=== PATIENT | female | born 1995 | race Two or more races ===

== ENCOUNTER 2021-12-05 22:03 | Emergency (ER) | payer SELFPAY ==
[2021-12-05 22:09] VITALS: BP 174/91; PULSE 83; RESP 17; TEMP 36.6; O2SAT 96; BMI 45.4
[2021-12-05 22:16] VITALS: BP 131/85; PULSE 75; RESP 18; TEMP 37.2; O2SAT 97
--- NOTE | 2021-12-06 00:07 | ED_ITS ---
HPI - Ear Problem General: Chief complaint: Ear Stated complaint: L ear pain Time Seen by Provider: 12/06/21 00:00 History of Present Illness: Patient is a 26-year-old female comes to the ED with left ear pain. Symptoms started yesterday. [place] thinks she got some water in her ear. Pain is rated 10 out of 10. Her external ears tender to the touch and the pain radiates into her left lower jaw. Denies any drainage out of left ear or any change in hearing. Denies any fevers, chills, nausea/vomiting, chest pain, shortness of breath, cough, nasal drainage or congestion, bladder or bowel symptoms. Associated symptoms: Reports ear or mastoid pain; Denies fever(s), headache(s) or neck pain Review of Systems Const: Denies: fever(s), chills or fatigue Eyes: Denies: change in vision or eye discomfort ENMT: Reports: ear or mastoid pain; Denies: throat pain, odynophagia, nasal discharge or nasal congestion Card: Denies: chest pain, palpitations, edema, swelling of feet/ankles, dyspnea on exertion or orthopnea Resp: Denies: dyspnea, productive cough or non-productive cough GI: Denies: abdominal pain, nausea, vomiting, diarrhea, constipation or hematochezia : Denies: flank pain, dysuria or hematuria Musc: Denies: neck pain, back pain or extremity swelling Skin/Breast: Denies: rash or new lesions Neuro: Denies: headache(s), numbness in extremities or weakness in extremities PFS ED PFSH: Medical History No pertinent family history Surgical History No pertinent past surgical history Physical Exam Const: COMMON NORMALS: no acute distress, patient oriented x3 and alert GENERAL APPEARANCE: cooperative HENMT: COMMON NORMALS: normocephalic HEAD & SCALP: normocephalic EXTERNAL AUDITORY CANAL: Abnormal EAC present EAC laterality: left Details: erythema, edema and EAC tenderness TYMPANIC MEMBRANE: TM abnormal TM laterality: left Details: erythematous MOUTH: Normal oral and palatal mucosa present THROAT: posterior oropharynx normal and uvula midline Neck/C-Spine: COMMON NORMALS: supple GENERAL: Yes normal visual inspection Resp: COMMON NORMALS: normal respiratory effort, No retractions, No use of accessory muscles and clear to auscultation bilaterally AUSCULTATION: clear to auscultation bilaterally Cardio: COMMON NORMALS: regular rate, regular rhythm, S1 normal heart sound present, S2 normal heart sound present, No gallops present (Cardio), No clicks present (Cardio), No murmurs present (Cardio) and Peripheral pulses 2+ throughout RATE: regular rate RHYTHM: regular rhythm HEART SOUNDS: S1 normal heart sound present and S2 normal heart sound present PERIPHERAL PULSES: Peripheral pulses 2+ throughout GI: COMMON NORMALS: Normal to inspection, nondistended, normoactive bowel sounds present, Soft to palpation, non-tender and no masses PALPATION: Yes Soft to palpation : COMMON NORMALS: Yes no CVA tenderness BLADDER/KIDNEY EXAM: Yes no CVA tenderness Back/Pelvis: COMMON NORMALS: no CVA tenderness Extremity: COMMON NORMALS: normal to inspection Neuro: COMMON NORMALS: patient oriented x3 and moves all extremities SENSORIUM/ORIENTATION: Yes alert Skin: GENERAL SKIN EXAM: dry skin Course Vital Signs: Vital signs: Vital Signs Temperature 99 F 12/05/21 22:16 Pulse Rate 75 12/05/21 22:16 Respiratory Rate 18 12/05/21 22:16 Blood Pressure 131/85 12/05/21 22:16 Pulse Oximetry 97 12/05/21 22:16 MDM - Ear Medical Decision Making Patient is a 26-year-old female comes to the ED with left ear pain. [place] developed the left ear pain yesterday. Denies any fevers, vomiting or discharge from ear. Exam of ear shows otitis externa and otitis media in left ear. She was given a dose of Ciprodex and amoxicillin here in the ED and some Toradol for pain. She was discharged home with a prescription for amoxicillin, Ciprodex and ibuprofen 600 mg for pain. Told to follow-up with her PCP in the next week for reevaluation. Return ED precautions given. Patient understood and agreed with plan. Discharge Plan Discharge Patient Disposition: Home Clinical Impression: Otitis externa Qualifiers: Otitis externa type: swimmer's ear Chronicity: acute Laterality: left Qualified Code(s): H60.332 - Swimmer's ear, left ear Otitis media Qualifiers: Otitis media type: serous Chronicity: acute Laterality: left Recurrence: non- recurrent Qualified Code(s): H65.02 - Acute serous otitis media, left ear Condition: Stable Prescriptions: New amoxicillin 500 mg capsule 500 mg PO BID 10 Days Qty: 20 0RF Ciprodex 0.3-0.1 % drops,suspension 4 drp otic (ear) BID 7 Days Qty: 7.5 0RF ibuprofen 600 mg tablet 600 mg PO Q8H PRN (Reason: pain) Qty: 20 0RF Discharge Orders: Discharge ED (Routine); Ordered 12/06/21 Ordered By: Daryl Londono Discharge Diet: Regular Discharge Activity: Resume usual activity Activity Restrictions/Additional Instructions: Follow-up with medical provider as directed in the next 7 to 10 days for reevaluation.Take medications as prescribed. Return to the ER or your medical provider if condition worsens. Please read and understand discharge instructions. Thank you for choosing [facility] for your healthcare needs today. Please realize this is an emergency room and that we are providing you with a medical screening exam and this may not be complete and all inclusive of all the testing and or work up that you may need to determine your ailment or severity of your illness. It is very important that you follow up as instructed or that you return to the Emergency Department should you have concerns or if your condition changes or worsens in any way. Coding Level of Care Code ED Cut Off Operator Scorer for Kimmie Hedrick
[2021-12-06] MEDS: amoxicillin 500 mg Capsule PO (00:25)
[2021-12-06] MEDS: ketorolac 60 mg/2 mL INJ IM (00:25)
[2021-12-06] MEDS: ciprofloxacin-dexameth Otic Susp 7.5 mL Btl 4 DROP EAR-LEFT (00:49)
[2021-12-06 00:50] VITALS: BP 166/85; PULSE 97; RESP 18; O2SAT 99
== END 2021-12-06 00:50 | disposition home or self-care (01) ==
PROVIDERS: Emergency Provider Physician Assistant
DX: H60.332 Swimmer's ear, left ear (principal); H65.02 Acute serous otitis media, left ear
CPT/HCPCS: 96372; 99283; J1885

== ENCOUNTER 2021-12-17 01:18 | Emergency (ER) | payer SELFPAY ==
[2021-12-17 01:24] VITALS: BP 143/80; PULSE 114; RESP 20; TEMP 37.3; O2SAT 97; BMI 43.8
[2021-12-17 02:58] VITALS: BP 135/78; PULSE 104; RESP 20; TEMP 37.4; O2SAT 97
[2021-12-17 03:30] VITALS: BP 135/78; PULSE 96; RESP 20; O2SAT 95
--- NOTE | 2021-12-17 03:32 | XRR_ITS ---
PROCEDURE INFORMATION: Exam: XR Chest Exam date and time: 12/17/2021 3:36 AM Age: 26 years old Clinical indication: Pain; Cough and shortness of breath; Chest pressure; Patient HX: C/O chest discomfort with cough and SOB. ; Additional info: Cp TECHNIQUE: Imaging protocol: Radiologic exam of the chest. Views: 1 view. COMPARISON: No relevant prior studies available. FINDINGS: Lungs: Unremarkable. No consolidation. Pleural spaces: Unremarkable. No pleural effusion. No pneumothorax. Heart/Mediastinum: Unremarkable. No cardiomegaly. Bones/joints: Unremarkable. XR/XR chest 1V portable [id number] IMPRESSION: No acute findings.
[2021-12-17 04:19] LABS: Basophils # 0.1 10^3/uL (0.0-0.1); Basophils % 0.7 %; Eosinophils # 0.4 10^3/uL (0.0-0.8); Hematocrit 44.1 % (37.0-47.0); Hemoglobin 14.5 g/dL (11.5-15.3); Lymphocytes # 1.3 10^3/uL (0.8-4.8); Lymphocytes % 10.8 %; Mean Corpuscular HGB Conc 32.9 g/dL (30.0-36.0); Mean Corpuscular Hemoglobin 25.2 pg (28.0-34.0); Mean Corpuscular Volume 76.7 fl (81-99); Monocytes # 0.5 10^3/uL (0.2-0.9); Monocytes % 4.4 %; Neutrophils % 80.7 %; Nucleated Red Blood Cells % 0 %; Platelet Count 320 10^3/cmm (130-400); Red Blood Count 5.75 10^6/uL (4.1-5.3); Red Cell Distribution Width 13.7 % (12.1-15.1); White Blood Count 11.8 10^3/uL (4.0-10.0)
[2021-12-17 04:27] LABS: HCG, Serum Qual Negative (Negative)
[2021-12-17] MEDS: dexamethasone 4 mg/mL INJ 8 MG IVP (04:29)
[2021-12-17] MEDS: ondansetron 2 mg/ML SDV 2 mL 8 MG IVP (04:29)
[2021-12-17] MEDS: sodium chloride 0.9% 1,000 ML 999 ML IV (04:29)
[2021-12-17] MEDS: ketorolac 30 mg/mL INJ 15 MG IVP (04:29)
[2021-12-17 04:37] LABS: Add Urine Microscopic? YES; Bilirubin Urine Neg (Negative); Blood Urine Neg (Negative); Glucose Urine UA Norm (Normal); Ketones Urine Negative (Negative); Leukocyte Esterase Urine Negative (Negative); Nitrate Urine Negative (Negative); Protein Urine Trace (Negative); Urine Appearance Clear (CLEAR); Urine Color Yellow (Yellow); Urobilinogen Urine Norm (Negative); pH Urine 6 (5-7)
[2021-12-17 04:37] LABS: Troponin T (5th) Once 6 ng/L (0-10)
[2021-12-17 04:38] LABS: Add Urine Culture? No; Bacteria Urine 1+ /hpf; Mucus Urine 3+ /hpf; RBC Urine 0-4 /hpf (0-2); WBC Urine 0-4 /hpf (0-5)
[2021-12-17 04:38] LABS: Alanine Aminotransferase 40 U/L (0-33); Albumin Level 4.4 g/dL (3.5-5.2); Alkaline Phosphatase 81 IU/L (35-105); Anion Gap 16.1 (5-19); Aspartate Amino Transferase 19 U/L (0-32); Blood Urea Nitrogen 11 mg/dL (6-20); C Reactive Protein 14.1 mg/L (0.0-4.9); Calcium 9.2 mg/dL (8.5-10.5); Carbon Dioxide 24 mmol/L (22-29); Chloride 101 mmol/L (98-107); Globulin 3.7 g/dL (1.3-4.6); Glomerular Filtration Rate 194.5 mL/min (90-130); Glucose 117 mg/dL (65-115); Osmolality Calculated 284 mOsm/kg (285-295); Potassium 4.1 mmol/L (3.5-5.1); Sodium 137 mmol/L (136-145); Total Bilirubin 0.3 mg/dL (0.15-1.2); Total Protein 8.1 g/dL (6.6-8.7)
[2021-12-17 04:45] LABS: Procalcitonin 0.06 ng/mL (0-0.5)
[2021-12-17 05:00] VITALS: BP 151/78; PULSE 83; RESP 22; O2SAT 99
--- NOTE | 2021-12-17 05:16 | ED_ITS ---
HPI - Chest Pain General: Chief Complaint: Chest Pain Stated Complaint: chest pressure, SOB Time Seen by Provider: 12/17/21 03:32 Source: patient History of Present Illness: 26-year-old female with 1 day of aches, fevers, cough, vomiting, nausea. She notes that her chest feels tight with pressure. She is having some shortness of breath MD complaint: chest pain Pertinent past history: other Onset (ago): hour(s) Prior episodes: No Onset: during rest Pain location: substernal Pain radiation: back Severity: moderate Quality: tightness and aching Relieving factors: nothing Exacerbating factors: nothing Associated symptoms: Reports diaphoresis, dyspnea, fever(s), nausea and vomiting; Deny abdominal pain or leg edema Review of Systems Const: Reports: fever(s) and diaphoresis Eyes: Reports: change in vision ENMT: Reports: throat pain Card: Reports: chest pain Resp: Reports: dyspnea and non-productive cough GI: Reports: nausea and vomiting; Denies: abdominal pain Neuro: Reports: headache(s) PFSH ED PFSH: Medical History No pertinent family history Surgical History No pertinent past surgical history Physical Exam Const: GENERAL APPEARANCE: cooperative; not in distress and not ill appearing NUTRITIONAL APPEARANCE: obese HENMT: COMMON NORMALS: normocephalic, atraumatic and Normal external nose present HEAD & SCALP: normocephalic and atraumatic FACE & SINUS: normal facial exam and face symmetric NOSE: Normal external nose present Eye: COMMON NORMALS: Equal, round and reactive pupils present and EOMs intact bilaterally PUPIL: Yes Equal, round and reactive pupils present Neck/C-Spine: GENERAL: Yes trachea midline Chest: CHEST: Yes Symmetrical chest wall rise Resp: COMMON NORMALS: normal respiratory effort, No use of accessory muscles and clear to auscultation bilaterally AUSCULTATION: clear to auscultation bilaterally Cardio: COMMON NORMALS: regular rate and regular rhythm RATE: regular rate RHYTHM: regular rhythm GI: COMMON NORMALS: Normal to inspection, nondistended, normoactive bowel sounds present, Soft to palpation and non-tender PALPATION: Yes Soft to palpation Extremity: COMMON NORMALS: no pedal edema Neuro: MEI COMA SCALE: document GCS findings Mei coma scale eye opening: Spontaneous Mei coma scale verbal response: Orientated Mei coma scale motor response: Obey commands Mei coma scale total score: 15 Course Vital Signs: Vital signs: Vital Signs Temperature 99.4 F 12/17/21 02:58 Pulse Rate 83 12/17/21 05:00 Respiratory Rate 22 H 12/17/21 05:00 Blood Pressure 151/78 12/17/21 05:00 Pulse Oximetry 99 12/17/21 05:00 MDM - Chest Pain Medical Decision Making White blood cell count 11.8. BMP is essentially normal. Only mild elevation in CRP. Her troponin level is 6. EKG shows sinus rhythm with no acute ST changes. Her chest x-ray is nonacute. She will be tested by PCR for COVID. She will be allowed discharge Lab Data : 12/17/21 04:10 12/17/21 04:10 Laboratory Results WBC 11.8 10^3/uL (4.0-10.0) H 12/17/21 04:10 RBC 5.75 10^6/uL (4.1-5.3) H 12/17/21 04:10 Hgb 14.5 g/dL (11.5-15.3) 12/17/21 04:10 Hct 44.1 % (37.0-47.0) 12/17/21 04:10 MCV 76.7 fl (81-99) L 12/17/21 04:10 MCH 25.2 pg (28.0-34.0) L 12/17/21 04:10 MCHC 32.9 g/dL (30.0-36.0) 12/17/21 04:10 RDW 13.7 % (12.1-15.1) 12/17/21 04:10 Plt Count 320 10^3/cmm (130-400) 12/17/21 04:10 MPV 10.0 fL (7.4-10.4) 12/17/21 04:10 Neut % (Auto) 80.7 % 12/17/21 04:10 Lymph % (Auto) 10.8 % 12/17/21 04:10 [place] % (Auto) 4.4 % 12/17/21 04:10 Eos % (Auto) 3.0 % 12/17/21 04:10 Baso % (Auto) 0.7 % 12/17/21 04:10 Neut # (Auto) 9.50 10^3/uL (1.8-7.7) H 12/17/21 04:10 Lymph # (Auto) 1.3 10^3/uL (0.8-4.8) 12/17/21 04:10 [place] # (Auto) 0.5 10^3/uL (0.2-0.9) 12/17/21 04:10 Eos # (Auto) 0.4 10^3/uL (0.0-0.8) 12/17/21 04:10 Baso # (Auto) 0.1 10^3/uL (0.0-0.1) 12/17/21 04:10 Nucleated RBC % (auto) 0 % 12/17/21 04:10 Nucleated RBCs # 0.0 /100WBC 12/17/21 04:10 Sodium 137 mmol/L (136-145) 12/17/21 04:10 Potassium 4.1 mmol/L (3.5-5.1) 12/17/21 04:10 Chloride 101 mmol/L (98-107) 12/17/21 04:10 Carbon Dioxide 24 mmol/L (22-29) 12/17/21 04:10 Anion Gap 16.1 (5-19) 12/17/21 04:10 BUN 11 mg/dL (6-20) 12/17/21 04:10 Creatinine 0.4 mg/dL (0.5-0.9) L 12/17/21 04:10 GFR Calculation 194.5 mL/min (90-130) H 12/17/21 04:10 Glucose 117 mg/dL (65-115) H 12/17/21 04:10 Calculated Osmolality 284 mOsm/kg (285-295) L 12/17/21 04:10 Calcium 9.2 mg/dL (8.5-10.5) 12/17/21 04:10 Total Bilirubin 0.3 mg/dL (0.15-1.2) 12/17/21 04:10 AST 19 U/L (0-32) 12/17/21 04:10 ALT 40 U/L (0-33) H 12/17/21 04:10 Alkaline Phosphatase 81 IU/L (35-105) 12/17/21 04:10 Troponin T Gen 5 ng/L 6 ng/L (0-10) 12/17/21 04:10 C-Reactive Protein 14.1 mg/L (0.0-4.9) H 12/17/21 04:10 Total Protein 8.1 g/dL (6.6-8.7) 12/17/21 04:10 Albumin 4.4 g/dL (3.5-5.2) 12/17/21 04:10 Globulin 3.7 g/dL (1.3-4.6) 12/17/21 04:10 Procalcitonin 0.06 ng/mL (0-0.5) 12/17/21 04:10 HCG, Qual Negative (Negative) 12/17/21 04:10 Urine Color Yellow (Yellow) 12/17/21 04:25 Urine Appearance Clear (CLEAR) 12/17/21 04:25 Urine pH 6 (5-7) 12/17/21 04:25 Ur Specific [place] 1.020 (1.005-1.030) 12/17/21 04:25 Urine Protein Trace (Negative) 12/17/21 04:25 Urine Glucose (UA) Norm (Normal) 12/17/21 04:25 Urine Ketones Negative (Negative) 12/17/21 04:25 Urine Blood Neg (Negative) 12/17/21 04:25 Urine Nitrate Negative (Negative) 12/17/21 04:25 Urine Bilirubin Neg (Negative) 12/17/21 04:25 Urine Urobilinogen Norm mg/dL (Negative) 12/17/21 04:25 Ur Leukocyte Esterase Negative (Negative) 12/17/21 04:25 Urine RBC 0-4 /hpf (0-2) H 12/17/21 04:25 Urine WBC 0-4 /hpf (0-5) H 12/17/21 04:25 Ur Squamous Epith Cells 5-10 /hpf (0-5) H 12/17/21 04:25 Amorphous Sediment Not Reportable 12/17/21 04:25 Urine Bacteria 1+ /hpf (NONE) H 12/17/21 04:25 Urine Mucus 3+ /hpf 12/17/21 04:25 Discharge Plan Discharge Patient Disposition: Home Clinical Impression: Chest pain, Bronchitis Condition: Stable Prescriptions: New albuterol sulfate 90 mcg/actuation HFA aerosol inhaler 2 inh inhalation Q4H PRN (Reason: shortness of breath or wheezing) Qty: 6.7 1RF ketorolac 10 mg tablet 10 mg PO TID PRN (Reason: pain) Qty: 10 0RF No Action ibuprofen 800 mg tablet 800 mg PO Q8H PRN (Reason: pain) Qty: 20 0RF Discharge Orders: Discharge ED (Routine); Ordered 12/17/21 Ordered By: Billy Iglesias Discharge Diet: Advance as tolerated Discharge Activity: Limit activity as instructed Patient Instructions: Chest Pain (ED), Acute Bronchitis (ED) Activity Restrictions/Additional Instructions: Return for worsening chest discomfort despite treatment, worsening shortness of breath, vomiting liquids or medications, other concerning symptoms. You may call later today to get the results of your COVID PCR test. If it is positive, you may benefit from antiviral medication treatment Coding Level of Care Code ED Senior Safety Support Manager for Kimmie Fwd Exam Comprehensive
[2021-12-17 05:48] VITALS: BP 139/75; PULSE 97; RESP 16; O2SAT 98
== END 2021-12-17 05:49 | disposition home or self-care (01) ==
PROVIDERS: Emergency Provider Emergency Medicine
DX: R07.9 Chest pain, unspecified (principal); J40 Bronchitis, not specified as acute or chronic
CPT/HCPCS: 71045; 80053; 81001; 84145; 84484; 84703; 85025; 86140; 96361; 96374; 96375; 99284; J1100; J1885; J2405; J7030

== ENCOUNTER 2021-12-27 02:04 | Emergency (ER) | payer SELFPAY ==
[2021-12-27 02:09] VITALS: BP 154/69; PULSE 102; RESP 18; TEMP 36.5; O2SAT 95; BMI 43.8
--- NOTE | 2021-12-27 02:16 | XRR_ITS ---
PROCEDURE INFORMATION: Exam: XR Left Knee Exam date and time: 12/27/2021 2:34 AM Age: 26 years old Clinical indication: Injury or trauma; Fall; Laceration; Patella or knee; Left; Foreign body involvement not specified; Additional info: Left knee pain after fall TECHNIQUE: Imaging protocol: Radiologic exam of the Left knee. Views: 3 views. COMPARISON: No relevant prior studies available. FINDINGS: Bones/joints: The medial joint space is well maintained. The lateral joint space is well maintained. No fracture identified. Flabella noted. Soft tissues: No knee joint effusion is present. XR/XR knee LT 3V* [id number] IMPRESSION: No evidence of acute fracture or dislocation.
--- NOTE | 2021-12-27 02:28 | W.ED.EXTPRO ---
HPI - Extremity Problem General: Chief complaint: Extremity Injury, Lower Stated complaint: L leg injury Time Seen by Provider: 12/27/21 02:07 History of Present Illness: Patient is a 26-year-old female comes to the ED with left knee pain. Patient had a fall 2 days ago where she tripped and her left knee hit the gravel causing a laceration. She was seen in urgent care and sutures were placed to close laceration. She says they did not do any x-ray of left knee at urgent care. She reports having 10 out of 10 left knee pain since fall. Pain worsens with weightbearing. She endorses having some swelling of the left knee as well. Associated symptoms: Deny chest pain, fever(s) or rash Review of Systems Const: Denies: fever(s), chills or fatigue Eyes: Denies: change in vision or eye discomfort ENMT: Denies: throat pain, odynophagia, nasal discharge or nasal congestion Card: Denies: chest pain, palpitations, edema, swelling of feet/ankles, dyspnea on exertion or orthopnea Resp: Denies: dyspnea, productive cough or non-productive cough GI: Denies: abdominal pain, nausea, vomiting, diarrhea, constipation or hematochezia : Denies: flank pain, dysuria or hematuria Musc: Reports: extremity pain (left knee pain) and extremity swelling (left knee); Denies: neck pain or back pain Skin/Breast: Denies: rash or new lesions Neuro: Denies: headache(s), numbness in extremities or weakness in extremities [facility] ED PFSH: Medical History Laceration of left knee without complication No pertinent family history Surgical History No pertinent past surgical history Social History Smoking and tobacco status: current every day smoker Female Reproductive History: Date of last menstrual period: 12/02/21 Physical Exam Const: COMMON NORMALS: no acute distress, patient oriented x3 and alert GENERAL APPEARANCE: cooperative and comfortable HENMT: COMMON NORMALS: normocephalic HEAD & SCALP: normocephalic MOUTH: Normal oral and palatal mucosa present THROAT: posterior oropharynx normal and uvula midline Neck/C-Spine: COMMON NORMALS: supple GENERAL: Yes normal visual inspection Resp: COMMON NORMALS: normal respiratory effort, No retractions, No use of accessory muscles and clear to auscultation bilaterally AUSCULTATION: clear to auscultation bilaterally Cardio: COMMON NORMALS: regular rate, regular rhythm, S1 normal heart sound present, S2 normal heart sound present, No gallops present (Cardio), No clicks present (Cardio), No murmurs present (Cardio) and Peripheral pulses 2+ throughout RATE: regular rate RHYTHM: regular rhythm HEART SOUNDS: S1 normal heart sound present and S2 normal heart sound present PERIPHERAL PULSES: Peripheral pulses 2+ throughout GI: COMMON NORMALS: Normal to inspection, nondistended, normoactive bowel sounds present, Soft to palpation, non-tender and no masses PALPATION: Yes Soft to palpation : COMMON NORMALS: Yes no CVA tenderness BLADDER/KIDNEY EXAM: Yes no CVA tenderness Back/Pelvis: COMMON NORMALS: no CVA tenderness Extremity: NARRATIVE EXTREMITY EXAM: Left knee?laceration with sutures in place. No signs of any cellulitis around laceration site. Patient has some swelling of left knee with generalized tenderness throughout left knee. Full range of motion. Neurovascular intact distally. GENERAL: Yes normal exam except as noted Neuro: COMMON NORMALS: patient oriented x3 and moves all extremities SENSORIUM/ORIENTATION: Yes alert Skin: GENERAL SKIN EXAM: dry skin Course Vital Signs: Vital signs: Vital Signs Temperature 97.7 F 12/27/21 02:09 Pulse Rate 102 H 12/27/21 02:09 Respiratory Rate 18 12/27/21 02:09 Blood Pressure 154/69 12/27/21 02:09 Pulse Oximetry 95 12/27/21 02:09 MDM - Extremity (Nontraumatic) Medical Decision Making Patient is a 26-year-old female comes to the ED with left knee pain. Patient appears nontoxic in no acute distress or pain. Left knee?laceration with sutures in place. No signs of any cellulitis around laceration site. Patient has some swelling of left knee with generalized tenderness throughout left knee. Full range of motion. Neurovascular intact distally. X-ray of left knee showed no acute findings. Patient was diagnosed with contusion left knee and discharged home with crutches. She was sent home with a prescription for ibuprofen 800 mg. Told to follow-up with PCP in the next week for reevaluation. Return to ED precautions given. Patient understood and agreed with plan. Discharge Plan Discharge Patient Disposition: Home Clinical Impression: Contusion of knee, left Qualifiers: Encounter type: initial encounter Qualified Code(s): S80.02XA - Contusion of left knee, initial encounter Condition: Stable Prescriptions: New ibuprofen 800 mg tablet 800 mg PO Q8H PRN (Reason: pain) Qty: 30 0RF No Action sulfamethoxazole-trimethoprim [Bactrim DS] 800-160 mg tablet 1 tab PO BID Qty: 14 0RF celecoxib 200 mg capsule 200 mg PO BID PRN (Reason: pain) Qty: 14 0RF albuterol sulfate 90 mcg/actuation HFA aerosol inhaler 2 inh inhalation Q4H PRN (Reason: shortness of breath or wheezing) Qty: 6.7 1RF Discharge Orders: Discharge ED (Routine); Ordered 12/27/21 Ordered By: Daryl Londono Discharge Diet: Regular Discharge Activity: Limit activity as instructed and Use walker/crutches as instructed Patient Instructions: Knee Pain (ED) Activity Restrictions/Additional Instructions: Follow-up with medical provider as directed. Use crutches for the next 2 to 3 days and limit weightbearing to allow for healing. Rest, ice and elevate left knee. Take medications as prescribed. Return to the ER or your medical provider if condition worsens. Please read and understand discharge instructions. Thank you for choosing [facility] for your healthcare needs today. Please realize this is an emergency room and that we are providing you with a medical screening exam and this may not be complete and all inclusive of all the testing and or work up that you may need to determine your ailment or severity of your illness. It is very important that you follow up as instructed or that you return to the Emergency Department should you have concerns or if your condition changes or worsens in any way. Coding Level of Care Code ED Farmworker Poultry for Kimmie Hedrick Exam Comprehensive
[2021-12-27] MEDS: HYDROcodone-acetaminophen 7.5-325 mg Tablet 1 TAB PO ×2 (02:39→03:15)
== END 2021-12-27 03:17 | disposition home or self-care (01) ==
PROVIDERS: Emergency Provider Physician Assistant
DX: S80.02XA Contusion of left knee, initial encounter (principal); F17.210 Nicotine dependence, cigarettes, uncomplicated; W01.198A Fall on same level from slipping, tripping and stumbling with subsequent striking against other object, initial encounter
CPT/HCPCS: 73562; 99283; E0114

== ENCOUNTER 2022-01-14 23:08 | Emergency (ER) | payer SELFPAY ==
[2022-01-14 23:12] VITALS: BP 159/83; PULSE 104; RESP 18; TEMP 36.8; O2SAT 98; BMI 45.1
[2022-01-14 23:38] LABS: Add Urine Microscopic? NO; Charge for UA Resulting for Rev
[2022-01-14 23:40] LABS: Bilirubin Urine Neg (Negative); Blood Urine Neg (Negative); Glucose Urine UA Norm (Normal); Ketones Urine Negative (Negative); Leukocyte Esterase Urine Negative (Negative); Nitrate Urine Negative (Negative); Protein Urine Neg (Negative); Urine Appearance Clear (CLEAR); Urine Color Yellow (Yellow); Urobilinogen Urine Neg (Negative); pH Urine 6 (5-7)
[2022-01-15 00:14] LABS: HCG Qualitative Urine. Negative (Negative)
[2022-01-15 00:16] VITALS: BP 146/65; RESP 16; O2SAT 96
--- NOTE | 2022-01-15 00:16 | W.ED.ABDPA2 ---
HPI - Abdominal Pain General: Chief Complaint: Abdominal Pain Stated Complaint: pelvic pain, abdomen pain Time Seen by Provider: 01/14/22 23:38 Source: patient Mode of arrival: ambulatory Limitations: no limitations History of Present Illness: 26-year-old female states that she gets frequent urinary tract infections. She states that she wipes and cleans her self very thoroughly after urinating and sometimes irritates her vagina. She states that over the last 2 days she has had some irritation along with difficulty urinating pain with urination states she is also had a foul-smelling discharge over the last 2 days as well. Said some mild pelvic pain she rates a 1 out of 10 denies any fever denies any vomiting or diarrhea denies any worsening improving factors. Associated Symptoms: Reports dysuria; Denies chills, diarrhea, fever(s), nausea and vomiting Related Data: Date of Last Menstrual Period: 12/02/21 Review of Systems Const: Denies: fever(s), chills, body aches or change in appetite Eyes: Denies: blurry vision or eye discomfort ENMT: Denies: throat pain or dental pain Card: Denies: chest pain Resp: Denies: dyspnea GI: Denies: abdominal pain, nausea, vomiting or diarrhea : Reports: dysuria and vaginal discharge Musc: Denies: neck pain or back pain Skin/Breast: Denies: rash Neuro: Denies: headache(s) Psych: Denies: depression [place]/Lymph: Denies: easy bruising All/Imm: Denies: urticaria PFSH ED PFSH: Medical History Laceration of left knee without complication No pertinent family history Surgical History No pertinent past surgical history Social History Smoking and tobacco status: current every day smoker Female Reproductive History: Date of last menstrual period: 12/02/21 Physical Exam Const: COMMON NORMALS: no acute distress, patient oriented x3 and healthy appearing HENMT: COMMON NORMALS: normocephalic and atraumatic HEAD & SCALP: normocephalic and atraumatic Eye: COMMON NORMALS: Equal, round and reactive pupils present and EOMs intact bilaterally PUPIL: Yes Equal, round and reactive pupils present Neck/C-Spine: COMMON NORMALS: full ROM and supple Chest: COMMONS NORMALS: normal inspection of the chest and normal palpation of entire chest wall Resp: COMMON NORMALS: normal respiratory effort, No retractions, No use of accessory muscles and clear to auscultation bilaterally AUSCULTATION: clear to auscultation bilaterally Cardio: COMMON NORMALS: regular rate, regular rhythm and No murmurs present (Cardio) RATE: regular rate RHYTHM: regular rhythm GI: COMMON NORMALS: Normal to inspection, nondistended, normoactive bowel sounds present, Soft to palpation, non-tender and no masses PALPATION: Yes Soft to palpation : OTHER: Cloudy discharge noted on pelvic exam no cervical motion tenderness Extremity: COMMON NORMALS: normal to inspection and full ROM Neuro: COMMON NORMALS: patient oriented x3, moves all extremities and no focal motor deficits Psych: COMMON NORMALS: mental status grossly normal, Normal thought process present and cooperative THOUGHT PROCESS: Normal thought process present Skin: COMMON NORMALS: no rashes or lesions noted and no wounds GENERAL SKIN EXAM: no rashes or lesions noted Course Vital Signs: Vital signs: Vital Signs Temperature 98.2 F 01/14/22 23:12 Pulse Rate 104 H 01/14/22 23:12 Respiratory Rate 16 01/15/22 00:16 Blood Pressure 146/65 01/15/22 00:16 Pulse Oximetry 96 01/15/22 00:16 MDM - Abdominal Pain Medical Decision Making Patient presents here with abdominal pain she does have some vaginal discharge. Her wet prep did show some bacteria she has no signs of PID but will give her Rocephin along with doxycycline follow cultures her abdominal exam is benign she has no signs of appendicitis. Lab Data : 01/15/22 00:15 01/15/22 01:34 Labs/Radiology: Laboratory Results WBC 10.8 10^3/uL (4.0-10.0) H 01/15/22 00:15 RBC 5.66 10^6/uL (4.1-5.3) H 01/15/22 00:15 Hgb 15.6 g/dL (11.5-15.3) H 01/15/22 00:15 Hct 45.5 % (37.0-47.0) 01/15/22 00:15 MCV 80.4 fl (81-99) L 01/15/22 00:15 MCH 27.6 pg (28.0-34.0) L 01/15/22 00:15 MCHC 34.3 g/dL (30.0-36.0) 01/15/22 00:15 RDW 13.6 % (12.1-15.1) 01/15/22 00:15 Plt Count 359 10^3/cmm (130-400) 01/15/22 00:15 MPV 10.3 fL (7.4-10.4) 01/15/22 00:15 Neut % (Auto) 69.3 % 01/15/22 00:15 Lymph % (Auto) 20.4 % 01/15/22 00:15 [place] % (Auto) 5.1 % 01/15/22 00:15 Eos % (Auto) 4.1 % 01/15/22 00:15 Baso % (Auto) 0.6 % 01/15/22 00:15 Neut # (Auto) 7.52 10^3/uL (1.8-7.7) 01/15/22 00:15 Lymph # (Auto) 2.2 10^3/uL (0.8-4.8) 01/15/22 00:15 [place]ard # (Auto) 0.6 10^3/uL (0.2-0.9) 01/15/22 00:15 Eos # (Auto) 0.4 10^3/uL (0.0-0.8) 01/15/22 00:15 Baso # (Auto) 0.1 10^3/uL (0.0-0.1) 01/15/22 00:15 Nucleated RBC % (auto) 0 % 01/15/22 00:15 Nucleated RBCs # 0.0 /100WBC 01/15/22 00:15 Sodium Cancelled 01/15/22 01:34 Potassium Cancelled 01/15/22 01:34 Chloride Cancelled 01/15/22 01:34 Carbon Dioxide Cancelled 01/15/22 01:34 Anion Gap Cancelled 01/15/22 01:34 BUN Cancelled 01/15/22 01:34 Creatinine Cancelled 01/15/22 01:34 GFR Calculation Cancelled 01/15/22 01:34 Glucose Cancelled 01/15/22 01:34 Calculated Osmolality Cancelled 01/15/22 01:34 Calcium Cancelled 01/15/22 01:34 Total Bilirubin Cancelled 01/15/22 01:34 AST Cancelled 01/15/22 01:34 ALT Cancelled 01/15/22 01:34 Alkaline Phosphatase Cancelled 01/15/22 01:34 Total Protein Cancelled 01/15/22 01:34 Albumin Cancelled 01/15/22 01:34 Globulin Cancelled 01/15/22 01:34 Lipase Cancelled 01/15/22 01:34 HCG, Qual Cancelled 01/15/22 00:15 Urine Color Yellow (Yellow) 01/14/22 23:25 Urine Appearance Clear (CLEAR) 01/14/22 23:25 Urine pH 6 (5-7) 01/14/22 23:25 Ur Specific [place] 1.020 (1.005-1.030) 01/14/22 23:25 Urine Protein Neg (Negative) 01/14/22 23:25 Urine Glucose (UA) Norm (Normal) 01/14/22 23:25 Urine Ketones Negative (Negative) 01/14/22 23:25 Urine Blood Neg (Negative) 01/14/22 23:25 Urine Nitrate Negative (Negative) 01/14/22 23:25 Urine Bilirubin Neg (Negative) 01/14/22 23:25 Urine Urobilinogen Neg mg/dL (Negative) 01/14/22 23:25 Ur Leukocyte Esterase Negative (Negative) 01/14/22 23:25 Discharge Plan Discharge Patient Disposition: Home Clinical Impression: Vaginal discharge Condition: Stable Prescriptions: New doxycycline hyclate 100 mg tablet 100 mg PO BID 10 Days Qty: 20 0RF No Action celecoxib 200 mg capsule 200 mg PO BID PRN (Reason: pain) Qty: 14 0RF albuterol sulfate 90 mcg/actuation HFA aerosol inhaler 2 inh inhalation Q4H PRN (Reason: shortness of breath or wheezing) Qty: 6.7 1RF ibuprofen 800 mg tablet 800 mg PO Q8H PRN (Reason: pain) Qty: 30 0RF Discharge Orders: Discharge ED (Routine); Ordered 01/15/22 Ordered By: Brian Rocha Discharge Diet: Advance as tolerated Discharge Activity: Resume usual activity Coding Level of Care Code ED 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
[2022-01-15 00:21] LABS: Basophils # 0.1 10^3/uL (0.0-0.1); Basophils % 0.6 %; Eosinophils # 0.4 10^3/uL (0.0-0.8); Eosinophils % 4.1 %; Hematocrit 45.5 % (37.0-47.0); Hemoglobin 15.6 g/dL (11.5-15.3); Lymphocytes # 2.2 10^3/uL (0.8-4.8); Lymphocytes % 20.4 %; Mean Corpuscular HGB Conc 34.3 g/dL (30.0-36.0); Mean Corpuscular Hemoglobin 27.6 pg (28.0-34.0); Mean Corpuscular Volume 80.4 fl (81-99); Mean Platelet Volume 10.3 fL (7.4-10.4); Monocytes # 0.6 10^3/uL (0.2-0.9); Monocytes % 5.1 %; Neutrophils # 7.52 10^3/uL (1.8-7.7); Neutrophils % 69.3 %; Nucleated Red Blood Cells % 0 %; Platelet Count 359 10^3/cmm (130-400); Red Blood Count 5.66 10^6/uL (4.1-5.3); Red Cell Distribution Width 13.6 % (12.1-15.1); White Blood Count 10.8 10^3/uL (4.0-10.0)
[2022-01-15 02:23] VITALS: BP 169/93; PULSE 103; RESP 18
== END 2022-01-15 02:28 | disposition home or self-care (01) ==
PROVIDERS: Emergency Provider Emergency Medicine
DX: N89.8 Other specified noninflammatory disorders of vagina (principal); F17.210 Nicotine dependence, cigarettes, uncomplicated
CPT/HCPCS: 81003; 81025; 85025; 87210; 87491; 87591; 96372; 99284; J0696

== ENCOUNTER 2022-02-23 22:48 | Emergency (ER) | payer SELFPAY ==
[2022-02-23 22:52] VITALS: BP 170/97; PULSE 103; RESP 16; TEMP 36.8; O2SAT 94
--- NOTE | 2022-02-23 23:18 | ED_ITS ---
Documented by User: HEAVENLY Avila 02/24/22 00:00 HPI - Nausea/Vomiting/Diarrhea General: Chief complaint: Nausea/Vomiting/Diarrhea Stated complaint: N/V/D Time Seen by Provider: 02/23/22 22:55 History of Present Illness: 27-year-old female in to the ER today with complaints of nausea, vomiting, diarrhea, sore throat. She reports that yesterday she started having diarrhea. She reports 10-15 stools liquid watery yesterday 10-15 liquid watery stools today. She reports that this evening she did vomit x1, but she reports it was a significant amount. She reports feeling nauseated all day and not drinking much water. She reports feeling urinary frequency and some burning with urination. She denies any hematuria. She denies any blood in her stools. She reports some upper abdominal/epigastric pain. She denies any fever, chills, body aches. She has had headaches off and on x2 days. She does report a recent sick contact yesterday. She reports being in contact with somebody who had a GI bug. She is very worried about her throat pain. She denies stating that her last period was on 01 February. She denies use of control. Associated nausea: Yes Associated symtoms: Reports dysuria, headache(s) and nausea; Denies change in vision, chest pain or palpitations Review of Systems Const: Denies: fever(s), chills or body aches Eyes: Denies: change in vision or blurry vision ENMT: Reports: throat pain, odynophagia, nasal congestion and post nasal drip; Denies: sinus pain Card: Denies: chest pain, palpitations, irregular heart rhythm, dyspnea on exertion or orthopnea Resp: Denies: dyspnea, productive cough or non-productive cough GI: Reports: abdominal pain, nausea, vomiting and diarrhea (10-15 liquid watery stools per day x2 days); Denies: hematemesis : Reports: dysuria, urinary frequency and urinary hesitancy; Denies: flank pain, difficulty voiding or hematuria Neuro: Reports: headache(s); Denies: numbness in extremities, weakness in extremities, sensory changes or lack of coordination PFSH ED PFSH: Medical History Laceration of left knee without complication No pertinent family history Surgical History No pertinent past surgical history Social History Smoking and tobacco status: current every day smoker Female Reproductive History: Date of last menstrual period: 12/02/21 Physical Exam Const: COMMON NORMALS: no acute distress, patient oriented x3 and alert NUTRITIONAL APPEARANCE: obese morbidly obese HENMT: COMMON NORMALS: external ears normal, EAC's normal and TM's normal bilaterally FACE & SINUS: sinuses nontender NOSE: Nasal discharge present clear EXTERNAL EAR: Yes external ears normal EXTERNAL AUDITORY CANAL: EAC's normal TYMPANIC MEMBRANE: TM's normal bilaterally THROAT: posterior oropharynx abnormal erythema (Mild erythema with moderate postnasal drainage) Eye: COMMON NORMALS: Equal, round and reactive pupils present PUPIL: Yes Equal, round and reactive pupils present Resp: COMMON NORMALS: normal respiratory effort and clear to auscultation bilaterally AUSCULTATION: clear to auscultation bilaterally Cardio: COMMON NORMALS: regular rate, regular rhythm, S1 normal heart sound present and S2 normal heart sound present RATE: regular rate RHYTHM: regular rhythm HEART SOUNDS: S1 normal heart sound present and S2 normal heart sound present GI: COMMON NORMALS: Normal to inspection, nondistended, normoactive bowel sounds present, Soft to palpation and non-tender (Mild epigastric tenderness to palpation) PALPATION: Yes Soft to palpation : COMMON NORMALS: Yes no CVA tenderness BLADDER/KIDNEY EXAM: Yes no CVA tenderness Back/Pelvis: COMMON NORMALS: no CVA tenderness Neuro: COMMON NORMALS: patient oriented x3 SENSORIUM/ORIENTATION: Yes alert Course Reevaluation(s): Reevaluation #1: 2315-patient reports she is feeling improved after receiving Zofran. Blood pressure rechecked 173/98. Patient reports that that is completely normal for her when she is hurting. She reports her throat is hurting. She denies chest pain or shortness of breath. Reevaluation #2: 2355-patient reports that she is feeling significantly better. She reports that she does not have any pain. Still awaiting lab results. IV fluids continuing to run. No diarrhea stools since arriving to ER today. No more vomiting since arriving to ER. Patient signed out to Dr. Rocha Vital Signs: Vital signs: Vital Signs Temperature 98.2 F 02/23/22 22:52 Pulse Rate 96 02/24/22 00:02 Respiratory Rate 18 02/24/22 00:02 Blood Pressure 110/81 02/24/22 00:02 Pulse Oximetry 100 02/24/22 00:02 Oxygen Delivery Me thod 02/24/22 00:02 MDM - Nausea/Vomiting/Diarrhea Medical Decision Making 27-year-old female patient in today for complaints of nausea, vomiting, diarrhea, sore throat. Patient does have a history of hypertension but states her blood pressure is normally 145 systolic at home. elevated in here today. She reports persisting liquid diarrhea x2 days. She reports 10-15 stools per day. She vomited this evening. She has had little p.o. intake today. She is very concerned about dehydration. She denies any blood in her stools. She has noticed some urinary frequency and dysuria today. She denies any hematuria. She denies any fever, chills. She complains of a severe sore throat. She does report some postnasal drainage. IV started, basic labs drawn. Patient reque sting strep swab to be done although her throat is not impressive on physical exam. Zofran administered. UA dip to evaluate for urinary symptoms. hCG ordered. IV fluid bolus ordered x1 given patient's reported significant diarrhea. Lab Data : 02/23/22 23:20 02/23/22 23:20 Laboratory Results WBC 11.7 10^3/uL (4.0-10.0) H 02/23/22 23:20 RBC 5.56 10^6/uL (4.1-5.3) H 02/23/22 23:20 Hgb 14.3 g/dL (11.5-15.3) 02/23/22 23:20 Hct 45.1 % (37.0-47.0) 02/23/22 23:20 MCV 81.1 fl (81-99) 02/23/22 23:20 MCH 25.7 pg (28.0-34.0) L 02/23/22 23:20 MCHC 31.7 g/dL (30.0-36.0) 02/23/22 23:20 RDW 13.6 % (12.1-15.1) 02/23/22 23:20 Plt Count 305 10^3/cmm (130-400) 02/23/22 23:20 MPV 9.9 fL (7.4-10.4) 02/23/22 23:20 Neut % (Auto) 71.2 % 02/23/22 23:20 Lymph % (Auto) 18.1 % 02/23/22 23:20 Lake % (Auto) 6.2 % 02/23/22 23:20 Eos % (Auto) 3.3 % 02/23/22 23:20 Baso % (Auto) 0.4 % 02/23/22 23:20 Neut # (Auto) 8.31 10^3/uL (1.8-7.7) H 02/23/22 23:20 Lymph # (Auto) 2.1 10^3/uL (0.8-4.8) 02/23/22 23:20 Lake # (Auto) 0.7 10^3/uL (0.2-0.9) 02/23/22 23:20 Eos # (Auto) 0.4 10^3/uL (0.0-0.8) 02/23/22 23:20 Baso # (Auto) 0.1 10^3/uL (0.0-0.1) 02/23/22 23:20 Nucleated RBC % (auto) 0 % 02/23/22 23:20 Nucleated RBCs # 0.0 /100WBC 02/23/22 23:20 Sodium 138 mmol/L (136-145) 02/23/22 23:20 Potassium 4.1 mmol/L (3.5-5.1) 02/23/22 23:20 Chloride 102 mmol/L (98-107) 02/23/22 23:20 Carbon Dioxide 25 mmol/L (22-29) 02/23/22 23:20 Anion Gap 15.1 (5-19) 02/23/22 23:20 BUN 9 mg/dL (6-20) 02/23/22 23:20 Creatinine 0.5 mg/dL (0.5-0.9) 02/23/22 23:20 GFR Calculation 149.1 mL/min (90-130) H 02/23/22 23:20 Glucose 165 mg/dL (65-115) H 02/23/22 23:20 Calculated Osmolality 288 mOsm/kg (285-295) 02/23/22 23:20 Calcium 9.1 mg/dL (8.5-10.5) 02/23/22 23:20 Total Bilirubin 0.2 mg/dL (0.15-1.2) 02/23/22 23:20 AST 19 U/L (0-32) 02/23/22 23:20 ALT 32 U/L (0-33) 02/23/22 23:20 Alkaline Phosphatase 78 U/L (35-105) 02/23/22 23:20 Total Protein 7.6 g/dL (6.6-8.7) 02/23/22 23:20 Albumin 4.0 g/dL (3.5-5.2) 02/23/22 23:20 Globulin 3.6 g/dL (1.3-4.6) 02/23/22 23:20 Lipase 32 U/L (13-60) 02/23/22 23:20 Urine Color Yellow (Yellow) 02/23/22 23:45 Urine Appearance Clear (CLEAR) 02/23/22 23:45 Urine pH 6.5 (5-7) 02/23/22 23:45 Ur Specific [place] 1.020 (1.005-1.030) 02/23/22 23:45 Urine Protein 1+ (Negative) H 02/23/22 23:45 Urine Glucose (UA) Norm (Normal) 02/23/22 23:45 Urine Ketones Negative (Negative) 02/23/22 23:45 Urine Blood Neg (Negative) 02/23/22 23:45 Urine Nitrate Negative (Negative) 02/23/22 23:45 Urine Bilirubin Neg (Negative) 02/23/22 23:45 Urine Urobilinogen Norm mg/dL (Negative) 02/23/22 23:45 Ur Leukocyte Esterase Negative (Negative) 02/23/22 23:45 Urine RBC 0-4 /hpf (0-2) H 02/23/22 23:45 Urine WBC None /hpf (0-5) 02/23/22 23:45 Ur Squamous Epith Cells 0-4 /hpf (0-5) H 02/23/22 23:45 Calcium Oxalate Crystal 5-10 /hpf H 02/23/22 23:45 Amorphous Sediment 1+ /hpf 02/23/22 23:45 Urine Bacteria None /hpf (NONE) 02/23/22 23:45 Urine HCG, Qual Negative (Negative) 02/23/22 23:46 Group A Strep Rapid Negative (Negative) 02/23/22 23:29 Discharge Plan Discharge Patient Disposition: Home Clinical Impression: Sore throat, Vomiting Condition: Stable Prescriptions: New ondansetron 4 mg tablet,disintegrating 4 mg PO Q6H PRN (Reason: nausea and vomiting) Qty: 14 0RF No Action celecoxib 200 mg capsule 200 mg PO BID PRN (Reason: pain) Qty: 14 0RF albuterol sulfate 90 mcg/actuation HFA aerosol inhaler 2 inh inhalation Q4H PRN (Reason: shortness of breath or wheezing) Qty: 6.7 1RF ibuprofen 800 mg tablet 800 mg PO Q8H PRN (Reason: pain) Qty: 30 0RF Discharge Orders: Discharge ED (Routine); Ordered 02/24/22 Ordered By: Brian Rocha Discharge Diet: Advance as tolerated Discharge Activity: Resume usual activity Patient Instructions: Strep Throat (ED), Acute Nausea and Vomiting (ED) Coding Level of Care Code 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 Documented by User: Brian Rocha MD 02/24/22 00:42 HPI - Nausea/Vomiting/Diarrhea General: Chief complaint: Nausea/Vomiting/Diarrhea Stated complaint: N/V/D Time Seen by Provider: 02/23/22 22:55 PFSH ED PFSH: Medical History Laceration of left knee without complication No pertinent family history Surgical History No pertinent past surgical history Social History Smoking and tobacco status: current every day smoker Course Vital Signs: Vital signs: Vital Signs Temperature 98.2 F 02/23/22 22:52 Pulse Rate 96 02/24/22 00:02 Respiratory Rate 18 02/24/22 00:02 Blood Pressure 110/81 02/24/22 00:02 Pulse Oximetry 100 02/24/22 00:02 Oxygen Delivery Me thod 02/24/22 00:02 MDM - Nausea/Vomiting/Diarrhea Medical Decision Making 27-year-old female patient in today for complaints of nausea, vomiting, diarrhea, sore throat. Patient does have a history of hypertension but states her blood pressure is normally 145 systolic at home. elevated in here today. She reports persisting liquid diarrhea x2 days. She reports 10-15 stools per day. She vomited this evening. She has had little p.o. intake today. She is very concerned about dehydration. She denies any blood in her stools. She has noticed some urinary frequency and dysuria today. She denies any hematuria. She denies any fever, chills. She complains of a severe sore throat. She does report some postnasal drainage. IV started, basic labs drawn. Patient requesting strep swab to be done although her throat is not impressive on physical exam. Zofran administered. UA dip to evaluate for urinary symptoms. hCG ordered. IV fluid bolus ordered x1 given patient's reported significant diarrhea. I agree with midlevel's history and physical patient's blood work strep urine are all negative I went and assessed her discharge she feels improved we will prescribe her Zofran she is stable for discharge she is to return if worsening. Lab Data : 02/23/22 23:20 02/23/22 23:20 Laboratory Results WBC 11.7 10^3/uL (4.0-10.0) H 02/23/22 23:20 RBC 5.56 10^6/uL (4.1-5.3) H 02/23/22 23:20 Hgb 14.3 g/dL (11.5-15.3) 02/23/22 23:20 Hct 45.1 % (37.0-47.0) 02/23/22 23:20 MCV 81.1 fl (81-99) 02/23/22 23:20 MCH 25.7 pg (28.0-34.0) L 02/23/22 23:20 MCHC 31.7 g/dL (30.0-36.0) 02/23/22 23:20 RDW 13.6 % (12.1-15.1) 02/23/22 23:20 Plt Count 305 10^3/cmm (130-400) 02/23/22 23:20 MPV 9.9 fL (7.4-10.4) 02/23/22 23:20 Neut % (Auto) 71.2 % 02/23/22 23:20 Lymph % (Auto) 18.1 % 02/23/22 23:20 [place] % (Auto) 6.2 % 02/23/22 23:20 Eos % (Auto) 3.3 % 02/23/22 23:20 Baso % (Auto) 0.4 % 02/23/22 23:20 Neut # (Auto) 8.31 10^3/uL (1.8-7.7) H 02/23/22 23:20 Lymph # (Auto) 2.1 10^3/uL (0.8-4.8) 02/23/22 23:20 [place] # (Auto) 0.7 10^3/uL (0.2-0.9) 02/23/22 23:20 Eos # (Auto) 0.4 10^3/uL (0.0-0.8) 02/23/22 23:20 Baso # (Auto) 0.1 10^3/uL (0.0-0.1) 02/23/22 23:20 Nucleated RBC % (auto) 0 % 02/23/22 23:20 Nucleated RBCs # 0.0 /100WBC 02/23/22 23:20 Sodium 138 mmol/L (136-145) 02/23/22 23:20 Potassium 4.1 mmol/L (3.5-5.1) 02/23/22 23:20 Chloride 102 mmol/L (98-107) 02/23/22 23:20 Carbon Dioxide 25 mmol/L (22-29) 02/23/22 23:20 Anion Gap 15.1 (5-19) 02/23/22 23:20 BUN 9 mg/dL (6-20) 02/23/22 23:20 Creatinine 0.5 mg/dL (0.5-0.9) 02/23/22 23:20 GFR Calculation 149.1 mL/min (90-130) H 02/23/22 23:20 Glucose 165 mg/dL (65-115) H 02/23/22 23:20 Calculated Osmolality 288 mOsm/kg (285-295) 02/23/22 23:20 Calcium 9.1 mg/dL (8.5-10.5) 02/23/22 23:20 Total Bilirubin 0.2 mg/dL (0.15-1.2) 02/23/22 23:20 AST 19 U/L (0-32) 02/23/22 23:20 ALT 32 U/L (0-33) 02/23/22 23:20 Alkaline Phosphatase 78 U/L (35-105) 02/23/22 23:20 Total Protein 7.6 g/dL (6.6-8.7) 02/23/22 23:20 Albumin 4.0 g/dL (3.5-5.2) 02/23/22 23:20 Globulin 3.6 g/dL (1.3-4.6) 02/23/22 23:20 Lipase 32 U/L (13-60) 02/23/22 23:20 Urine Color Yellow (Yellow) 02/23/22 23:45 Urine Appearance Clear (CLEAR) 02/23/22 23:45 Urine pH 6.5 (5-7) 02/23/22 23:45 Ur Specific [place] 1.020 (1.005-1.030) 02/23/22 23:45 Urine Protein 1+ (Negative) H 02/23/22 23:45 Urine Glucose (UA) Norm (Normal) 02/23/22 23:45 Urine Ketones Negative (Negative) 02/23/22 23:45 Urine Blood Neg (Negative) 02/23/22 23:45 Urine Nitrate Negative (Negative) 02/23/22 23:45 Urine Bilirubin Neg (Negative) 02/23/22 23:45 Urine Urobilinogen Norm mg/dL (Negative) 02/23/22 23:45 Ur Leukocyte Esterase Negative (Negative) 02/23/22 23:45 Urine RBC 0-4 /hpf (0-2) H 02/23/22 23:45 Urine WBC None /hpf (0-5) 02/23/22 23:45 Ur Squamous Epith Cells 0-4 /hpf (0-5) H 02/23/22 23:45 Calcium Oxalate Crystal 5-10 /hpf H 02/23/22 23:45 Amorphous Sediment 1+ /hpf 02/23/22 23:45 Urine Bacteria None /hpf (NONE) 02/23/22 23:45 Urine HCG, Qual Negative (Negative) 02/23/22 23:46 Group A Strep Rapid Negative (Negative) 02/23/22 23:29 Discharge Plan Discharge Patient Disposition: Home Clinical Impression: Sore throat, Vomiting Condition: Stable Prescriptions: New ondansetron 4 mg tablet,disintegrating 4 mg PO Q6H PRN (Reason: nausea and vomiting) Qty: 14 0RF No Action celecoxib 200 mg capsule 200 mg PO BID PRN (Reason: pain) Qty: 14 0RF albuterol sulfate 90 mcg/actuation HFA aerosol inhaler 2 inh inhalation Q4H PRN (Reason: shortness of breath or wheezing) Qty: 6.7 1RF ibuprofen 800 mg tablet 800 mg PO Q8H PRN (Reason: pain) Qty: 30 0RF Discharge Orders: Discharge ED (Routine); Ordered 02/24/22 Ordered By: Brian Rocha Discharge Diet: Advance as tolerated Discharge Activity: Resume usual activity Patient Instructions: Strep Throat (ED), Acute Nausea and Vomiting (ED) Coding Level of Care Code ED 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
[2022-02-23 23:26] LABS: Basophils # 0.1 10^3/uL (0.0-0.1); Basophils % 0.4 %; Eosinophils # 0.4 10^3/uL (0.0-0.8); Eosinophils % 3.3 %; Hematocrit 45.1 % (37.0-47.0); Hemoglobin 14.3 g/dL (11.5-15.3); Lymphocytes # 2.1 10^3/uL (0.8-4.8); Lymphocytes % 18.1 %; Mean Corpuscular HGB Conc 31.7 g/dL (30.0-36.0); Mean Corpuscular Hemoglobin 25.7 pg (28.0-34.0); Mean Corpuscular Volume 81.1 fl (81-99); Mean Platelet Volume 9.9 fL (7.4-10.4); Monocytes # 0.7 10^3/uL (0.2-0.9); Monocytes % 6.2 %; Neutrophils # 8.31 10^3/uL (1.8-7.7); Neutrophils % 71.2 %; Nucleated Red Blood Cells % 0 %; Platelet Count 305 10^3/cmm (130-400); Red Blood Count 5.56 10^6/uL (4.1-5.3); Red Cell Distribution Width 13.6 % (12.1-15.1); White Blood Count 11.7 10^3/uL (4.0-10.0)
[2022-02-23] MEDS: ondansetron 2 mg/ML SDV 2 mL 4 MG IVP (23:30)
[2022-02-23] MEDS: sodium chloride 0.9% 1,000 ML 999 ML IV (23:30)
[2022-02-23 23:34] VITALS: BP 173/98; RESP 18; O2SAT 100
[2022-02-23 23:53] LABS: Alanine Aminotransferase 32 U/L (0-33); Alkaline Phosphatase 78 U/L (35-105); Anion Gap 15.1 (5-19); Aspartate Amino Transferase 19 U/L (0-32); Blood Urea Nitrogen 9 mg/dL (6-20); Calcium 9.1 mg/dL (8.5-10.5); Carbon Dioxide 25 mmol/L (22-29); Chloride 102 mmol/L (98-107); Globulin 3.6 g/dL (1.3-4.6); Glomerular Filtration Rate 149.1 mL/min (90-130); Glucose 165 mg/dL (65-115); Lipase 32 U/L (13-60); Osmolality Calculated 288 mOsm/kg (285-295); Potassium 4.1 mmol/L (3.5-5.1); Sodium 138 mmol/L (136-145); Total Bilirubin 0.2 mg/dL (0.15-1.2); Total Protein 7.6 g/dL (6.6-8.7)
[2022-02-23 23:57] LABS: Rapid Strep A Test Negative (Negative)
[2022-02-24 00:02] VITALS: BP 110/81; PULSE 96; RESP 18; O2SAT 100
[2022-02-24 00:33] LABS: Urine Appearance Clear (CLEAR); Urine Color Yellow (Yellow); pH Urine 6.5 (5-7)
[2022-02-24 00:34] LABS: Add Urine Microscopic? YES; Bilirubin Urine Neg (Negative); Blood Urine Neg (Negative); Glucose Urine UA Norm (Normal); Ketones Urine Negative (Negative); Leukocyte Esterase Urine Negative (Negative); Nitrate Urine Negative (Negative); Protein Urine 1+ (Negative); Urobilinogen Urine Norm (Negative)
[2022-02-24 00:41] LABS: Amorphous Sediment Urine 1+ /hpf; RBC Urine 0-4 /hpf (0-2); Squamous Epithelial Cell Urine 0-4 /hpf (0-5)
[2022-02-24 00:42] VITALS: BP 148/78; RESP 18; O2SAT 100
[2022-02-24 00:42] LABS: Add Urine Culture? No
[2022-02-24 00:49] VITALS: BP 148/78; PULSE 91; RESP 18; O2SAT 100
== END 2022-02-24 00:48 | disposition home or self-care (01) ==
PROVIDERS: Nurse Practitioner Family; Emergency Provider Emergency Medicine
DX: J02.9 Acute pharyngitis, unspecified (principal); R11.11 Vomiting without nausea; F17.210 Nicotine dependence, cigarettes, uncomplicated
CPT/HCPCS: 80053; 81001; 81025; 83690; 85025; 87081; 87880; 96374; 99284; J2405; J7030

== ENCOUNTER 2022-02-26 23:18 | Emergency (ER) | payer SELFPAY ==
[2022-02-26 23:20] VITALS: BP 151/69; PULSE 110; RESP 22; TEMP 36.1; O2SAT 98; BMI 45.4
[2022-02-26 23:39] VITALS: O2SAT 94
--- NOTE | 2022-02-26 23:46 | XRR_ITS ---
PROCEDURE INFORMATION: Exam: XR Chest Exam date and time: 02/26/2022 11:54 PM Age: 27 years old Clinical indication: Shortness of breath; Additional info: SOB TECHNIQUE: Imaging protocol: Radiologic exam of the chest. Views: 1 view. COMPARISON: CR XR chest 1V portable [id number] 12/17/2021 3:36 AM FINDINGS: Lungs: Unremarkable. No consolidation. Pleural spaces: Unremarkable. No pleural effusion. No pneumothorax. Heart/Mediastinum: Unremarkable. No cardiomegaly. Bones/joints: Unremarkable. XR/XR chest 1V portable [id number] IMPRESSION: No acute findings.
[2022-02-27] MEDS: oxyCODONE-APAP 5-325 mg Tablet 2 TAB PO (01:03)
[2022-02-27] MEDS: dexamethasone 4 mg Tablet 8 MG PO (01:03)
--- NOTE | 2022-02-27 04:32 | ED_ITS ---
HPI - COVID General: Chief Complaint: COVID symptoms Stated Complaint: throat sore, chest pressure Time Seen by Provider: 02/26/22 23:30 Source: patient History of Present Illness: 27-year-old female here for the second time with similar complaints of sore throat, nasal congestion, mild cough. She took a home COVID test which was negative. She tested negative for strep. 2 days ago. Prior covid testing: yes, results known COVID 19 common symptoms: positive fever(s), chills, cough, non-productive cough, dyspnea, body aches, throat pain, nasal congestion, nausea and diarrhea; negative vomiting COVID 19 other sytmptoms: negative chest pressure, chest pain or requiring oxygen Treatment prior to arrival: other (Allergy medicine) COVID Results: No Data to Display Review of Systems Const: Reports: fever(s), chills and body aches ENMT: Reports: throat pain and nasal congestion Card: Denies: chest pain Resp: Reports: dyspnea and non-productive cough GI: Reports: nausea and diarrhea; Denies: vomiting PFSH ED PFSH: Medical History Laceration of left knee without complication No pertinent family history Surgical History No pertinent past surgical history Social History Smoking and tobacco status: current every day smoker Female Reproductive History: Date of last menstrual period: 12/02/21 Physical Exam Const: COMMON NORMALS: no acute distress GENERAL APPEARANCE: cooperative; not ill appearing and not frail appearing HENMT: COMMON NORMALS: normocephalic, atraumatic and Normal external nose present HEAD & SCALP: normocephalic and atraumatic FACE & SINUS: normal facial exam and face symmetric NOSE: Normal external nose present and Normal nares present THROAT: posterior oropharynx abnormal cobblestoning and erythema; no exudates Eye: COMMON NORMALS: Equal, round and reactive pupils present and EOMs intact bilaterally PUPIL: Yes Equal, round and reactive pupils present Neck/C-Spine: GENERAL: Yes trachea midline Chest: CHEST: Yes Symmetrical chest wall rise Resp: COMMON NORMALS: normal respiratory effort, No retractions, No use of accessory muscles and clear to auscultation bilaterally AUSCULTATION: clear to auscultation bilaterally Cardio: COMMON NORMALS: regular rate and regular rhythm RATE: regular rate RHYTHM: regular rhythm GI: COMMON NORMALS: Normal to inspection, nondistended, normoactive bowel sounds present Extremity: COMMON NORMALS: no pedal edema Neuro: MEI COMA SCALE: document GCS findings [place] coma scale eye opening: Spontaneous Mei coma scale verbal response: Orientated [place] coma scale motor response: Obey commands Mei coma scale total score: 15 SENSORY EXAM: Yes extremities (intact) Psych: COMMON NORMALS: speech normal SPEECH: Yes normal speech Skin: COMMON NORMALS: no rashes or lesions noted GENERAL SKIN EXAM: no rashes or lesions noted Course Vital Signs: Vital signs: Vital Signs Temperature 97 F L 02/26/22 23:20 Pulse Rate 110 H 02/26/22 23:20 Respiratory Rate 22 H 02/26/22 23:20 Blood Pressure 151/69 02/26/22 23:20 Pulse Oximetry 94 02/26/22 23:39 Oxygen Delivery Me thod 02/26/22 23:39 MDM - COVID Medical Decision Making Chest x-ray is negative. She is given symptomatic treatment for viral pharyngitis and upper respiratory tract infection. Lab Data Radiology Impressions Chest X-Ray 02/26/22 23:46 IMPRESSION: No acute findings. No Data to Display Discharge Plan Discharge Patient Disposition: Home Clinical Impression: Upper respiratory infection Condition: Stable Prescriptions: New Medrol (Benjamin) 4 mg tablets,dose pack See Rx Instructions .ROUTE .COMPLEX Qty: 21 0RF Rx Instructions: orally per package directions Mucinex 600 mg tablet extended release 12hr 600 mg PO BID PRN (Reason: congestion) Qty: 20 0RF No Action celecoxib 200 mg capsule 200 mg PO BID PRN (Reason: pain) Qty: 14 0RF albuterol sulfate 90 mcg/actuation HFA aerosol inhaler 2 inh inhalation Q4H PRN (Reason: shortness of breath or wheezing) Qty: 6.7 1RF ibuprofen 800 mg tablet 800 mg PO Q8H PRN (Reason: pain) Qty: 30 0RF ondansetron 4 mg tablet,disintegrating 4 mg PO Q6H PRN (Reason: nausea and vomiting) Qty: 14 0RF Discharge Orders: Discharge ED (Routine); Ordered 02/27/22 Ordered By: Billy Iglesias Patient Instructions: Upper Respiratory Infection (ED), Opioid Safety Coding Level of Care Code ED Student Loan Counselor for Kimmie Hedrick
== END 2022-02-27 01:07 | disposition home or self-care (01) ==
PROVIDERS: Emergency Provider Emergency Medicine
DX: J06.9 Acute upper respiratory infection, unspecified (principal); F17.210 Nicotine dependence, cigarettes, uncomplicated
CPT/HCPCS: 71045; 99283; J8540

== ENCOUNTER 2022-03-18 00:08 | Emergency (ER) | payer SELFPAY ==
[2022-03-18 00:11] VITALS: BP 159/77; PULSE 100; RESP 18; TEMP 36.7; O2SAT 98; BMI 46.5
--- NOTE | 2022-03-18 00:23 | XRR_ITS ---
PROCEDURE INFORMATION: Exam: XR Abdomen Exam date and time: 03/18/2022 1:09 AM Age: 27 years old Clinical indication: Abdominal pain; Localized; Left lower quadrant (llq); Patient HX: Llq pain with constipation; Additional info: Abd pain TECHNIQUE: Imaging protocol: Radiologic exam of the abdomen. Views: Frontal supine view of the abdomen. 1 View. COMPARISON: CR XR chest 1V portable [id number] 02/26/2022 11:54 PM FINDINGS: Gastrointestinal tract: The colon is loaded with fecal matter and gasses. Fecal matter and gasses are noted also in the rectosigmoid region. Mild gas is distension of the transverse colon and the region of the splenic flexure, measuring approximately 6.4 cm. Nonobstructive gaseous pattern.. Bones/joints: The osseous structures are intact. No evidence of acute fractures.. XR/XR KUB [id number] IMPRESSION: Mild gaseous distension of the colon without intestinal obstruction. Nonobstructive gaseous pattern.
--- NOTE | 2022-03-18 00:24 | W.ED.ABDPA2 ---
HPI - Abdominal Pain General: Chief Complaint: Abdominal Pain Stated Complaint: abd pain Time Seen by Provider: 03/18/22 00:09 Source: patient Mode of arrival: ambulatory Limitations: no limitations History of Present Illness: 27-year-old female who states she has been having some left lower quadrant abdominal pain over the last week. States the pains been cramping in nature states she had some constipation was concerned because she states her stools were dark thought they may have been bloody. She denies any vomiting or diarrhea she rates her pain a 5 out of 10 currently she denies any fever Associated Symptoms: Reports constipation; Denies chills, dysuria and fever(s) Related Data: Date of Last Menstrual Period: 03/04/22 Review of Systems Const: Denies: fever(s), chills, body aches or change in appetite Eyes: Denies: blurry vision or eye discomfort ENMT: Denies: throat pain or dental pain Card: Denies: chest pain Resp: Denies: dyspnea GI: Reports: abdominal pain and constipation : Denies: dysuria Musc: Denies: neck pain or back pain Skin/Breast: Denies: rash Neuro: Denies: headache(s) Psych: Denies: depression Francisco/Lymph: Denies: easy bruising All/Imm: Denies: urticaria PFSH ED PFSH: Medical History Laceration of left knee without complication No pertinent family history Surgical History No pertinent past surgical history Social History Smoking and tobacco status: current every day smoker Female Reproductive History: Date of last menstrual period: 03/04/22 Physical Exam Const: COMMON NORMALS: no acute distress, patient oriented x3 and healthy appearing HENMT: COMMON NORMALS: normocephalic and atraumatic HEAD & SCALP: normocephalic and atraumatic Eye: COMMON NORMALS: Equal, round and reactive pupils present and EOMs intact bilaterally PUPIL: Yes Equal, round and reactive pupils present Neck/C-Spine: COMMON NORMALS: full ROM and supple Chest: COMMONS NORMALS: normal inspection of the chest and normal palpation of entire chest wall Resp: COMMON NORMALS: normal respiratory effort, No retractions, No use of accessory muscles and clear to auscultation bilaterally AUSCULTATION: clear to auscultation bilaterally Cardio: COMMON NORMALS: regular rate, regular rhythm and No murmurs present (Cardio) RATE: regular rate RHYTHM: regular rhythm GI: COMMON NORMALS: Normal to inspection, nondistended, normoactive bowel sounds present, Soft to palpation, non-tender and no masses PALPATION: Yes Soft to palpation RECTAL EXAM: visual inspection normal, stool normal and No heme positive stool Extremity: COMMON NORMALS: normal to inspection and full ROM Neuro: COMMON NORMALS: patient oriented x3, moves all extremities and no focal motor deficits Psych: COMMON NORMALS: mental status grossly normal, Normal thought process present and cooperative THOUGHT PROCESS: Normal thought process present Skin: COMMON NORMALS: no rashes or lesions noted and no wounds GENERAL SKIN EXAM: no rashes or lesions noted Course Vital Signs: Vital signs: Vital Signs Temperature 98.2 F 03/18/22 01:00 Pulse Rate 90 03/18/22 01:00 Respiratory Rate 18 03/18/22 01:00 Blood Pressure 148/65 03/18/22 01:00 Pulse Oximetry 97 03/18/22 01:00 Oxygen Delivery Me thod 03/18/22 01:00 MDM - Abdominal Pain Medical Decision Making Patient presents with abdominal pain has had some constipation her exam here is benign she had no blood in her stool blood work is normal she has no signs of acute abdomen does not require CT at this time she is take MiraLAX at home along with Bentyl she is to follow-up with PCP and return if worsening she understands agrees to plan. Lab Data : 03/18/22 00:44 03/18/22 00:44 Labs/Radiology: Laboratory Results WBC 9.8 10^3/uL (4.0-10.0) 03/18/22 00:44 RBC 5.48 10^6/uL (4.1-5.3) H 03/18/22 00:44 Hgb 14.2 g/dL (11.5-15.3) 03/18/22 00:44 Hct 45.0 % (37.0-47.0) 03/18/22 00:44 MCV 82.1 fl (81-99) 03/18/22 00:44 MCH 25.9 pg (28.0-34.0) L 03/18/22 00:44 MCHC 31.6 g/dL (30.0-36.0) 03/18/22 00:44 RDW 13.6 % (12.1-15.1) 03/18/22 00:44 Plt Count 283 10^3/cmm (130-400) 03/18/22 00:44 MPV 9.7 fL (7.4-10.4) 03/18/22 00:44 Neut % (Auto) 63.3 % 03/18/22 00:44 Lymph % (Auto) 26.3 % 03/18/22 00:44 [place] % (Auto) 5.6 % 03/18/22 00:44 Eos % (Auto) 3.6 % 03/18/22 00:44 Baso % (Auto) 0.6 % 03/18/22 00:44 Neut # (Auto) 6.23 10^3/uL (1.8-7.7) 03/18/22 00:44 Lymph # (Auto) 2.6 10^3/uL (0.8-4.8) 03/18/22 00:44 [place]ett # (Auto) 0.6 10^3/uL (0.2-0.9) 03/18/22 00:44 Eos # (Auto) 0.4 10^3/uL (0.0-0.8) 03/18/22 00:44 Baso # (Auto) 0.1 10^3/uL (0.0-0.1) 03/18/22 00:44 Nucleated RBC % (auto) 0 % 03/18/22 00:44 Nucleated RBCs # 0.0 /100WBC 03/18/22 00:44 Sodium 137 mmol/L (136-145) 03/18/22 00:44 Potassium 4.1 mmol/L (3.5-5.1) 03/18/22 00:44 Chloride 102 mmol/L (98-107) 03/18/22 00:44 Carbon Dioxide 22 mmol/L (22-29) 03/18/22 00:44 Anion Gap 17.1 (5-19) 03/18/22 00:44 BUN 9 mg/dL (6-20) 03/18/22 00:44 Creatinine 0.4 mg/dL (0.5-0.9) L 03/18/22 00:44 GFR Calculation 192.9 mL/min (90-130) H 03/18/22 00:44 Glucose 150 mg/dL (65-115) H 03/18/22 00:44 Calculated Osmolality 286 mOsm/kg (285-295) 03/18/22 00:44 Calcium 9.5 mg/dL (8.5-10.5) 03/18/22 00:44 Total Bilirubin 0.2 mg/dL (0.15-1.2) 03/18/22 00:44 AST 28 U/L (0-32) 03/18/22 00:44 ALT 40 U/L (0-33) H 03/18/22 00:44 Alkaline Phosphatase 75 U/L (35-105) 03/18/22 00:44 Total Protein 7.5 g/dL (6.6-8.7) 03/18/22 00:44 Albumin 4.1 g/dL (3.5-5.2) 03/18/22 00:44 Globulin 3.4 g/dL (1.3-4.6) 03/18/22 00:44 Lipase 34 U/L (13-60) 03/18/22 00:44 HCG, Qual Negative (Negative) 03/18/22 00:44 Urine Color Yellow (Yellow) 03/18/22 00:57 Urine Appearance Clear (CLEAR) 03/18/22 00:57 Urine pH 6.5 (5-7) 03/18/22 00:57 Ur Specific [place] 1.015 (1.005-1.030) 03/18/22 00:57 Urine Protein Neg (Negative) 03/18/22 00:57 Urine Glucose (UA) Norm (Normal) 03/18/22 00:57 Urine Ketones Negative (Negative) 03/18/22 00:57 Urine Blood Neg (Negative) 03/18/22 00:57 Urine Nitrate Negative (Negative) 03/18/22 00:57 Urine Bilirubin Neg (Negative) 03/18/22 00:57 Urine Urobilinogen Neg mg/dL (Negative) 03/18/22 00:57 Ur Leukocyte Esterase Negative (Negative) 03/18/22 00:57 Discharge Plan Discharge Patient Disposition: Home Clinical Impression: Abdominal pain Condition: Stable Prescriptions: New dicyclomine 20 mg tablet 20 mg PO TID PRN (Reason: abdominal pain) Qty: 20 0RF No Action celecoxib 200 mg capsule 200 mg PO BID PRN (Reason: pain) Qty: 14 0RF amoxicillin 875 mg tablet 875 mg PO BID 10 Days Qty: 20 0RF cetirizine [Zyrtec] 10 mg tablet 10 mg PO DAILY Qty: 30 0RF ibuprofen 600 mg tablet 600 mg PO Q8H PRN (Reason: pain) Qty: 30 0RF albuterol sulfate 90 mcg/actuation HFA aerosol inhaler 2 inh inhalation Q4H PRN (Reason: shortness of breath or wheezing) Qty: 6.7 1RF ibuprofen 800 mg tablet 800 mg PO Q8H PRN (Reason: pain) Qty: 30 0RF ondansetron 4 mg tablet,disintegrating 4 mg PO Q6H PRN (Reason: nausea and vomiting) Qty: 14 0RF Mucinex 600 mg tablet extended release 12hr 600 mg PO BID PRN (Reason: congestion) Qty: 20 0RF Discharge Orders: Discharge ED (Routine); Ordered 03/18/22 Ordered By: Brian Rocha Discharge Diet: Advance as tolerated Discharge Activity: Resume usual activity Patient Instructions: Abdominal Pain (ED) Coding Level of Care Code ED Measuring Machine Tender for Edgardg Fwd Exam Comprehensive
[2022-03-18] MEDS: sodium chloride 0.9% 1,000 ML 999 ML IV (00:47)
[2022-03-18] MEDS: ondansetron 2 mg/ML SDV 2 mL 4 MG IVP (00:47)
[2022-03-18 00:52] LABS: Basophils # 0.1 10^3/uL (0.0-0.1); Basophils % 0.6 %; Eosinophils # 0.4 10^3/uL (0.0-0.8); Eosinophils % 3.6 %; Hemoglobin 14.2 g/dL (11.5-15.3); Lymphocytes # 2.6 10^3/uL (0.8-4.8); Lymphocytes % 26.3 %; Mean Corpuscular HGB Conc 31.6 g/dL (30.0-36.0); Mean Corpuscular Hemoglobin 25.9 pg (28.0-34.0); Mean Corpuscular Volume 82.1 fl (81-99); Mean Platelet Volume 9.7 fL (7.4-10.4); Monocytes # 0.6 10^3/uL (0.2-0.9); Monocytes % 5.6 %; Neutrophils # 6.23 10^3/uL (1.8-7.7); Neutrophils % 63.3 %; Nucleated Red Blood Cells % 0 %; Platelet Count 283 10^3/cmm (130-400); Red Blood Count 5.48 10^6/uL (4.1-5.3); Red Cell Distribution Width 13.6 % (12.1-15.1); White Blood Count 9.8 10^3/uL (4.0-10.0)
[2022-03-18 01:00] VITALS: BP 148/65; PULSE 90; RESP 18; TEMP 36.8; O2SAT 97
[2022-03-18 01:02] LABS: HCG, Serum Qual Negative (Negative)
[2022-03-18 01:06] LABS: Add Urine Microscopic? NO; Charge for UA Resulting for Rev
[2022-03-18 01:08] LABS: Bilirubin Urine Neg (Negative); Blood Urine Neg (Negative); Glucose Urine UA Norm (Normal); Ketones Urine Negative (Negative); Leukocyte Esterase Urine Negative (Negative); Nitrate Urine Negative (Negative); Protein Urine Neg (Negative); Specific Gravity, Urine 1.015 (1.005-1.030); Urine Appearance Clear (CLEAR); Urine Color Yellow (Yellow); Urobilinogen Urine Neg (Negative); pH Urine 6.5 (5-7)
[2022-03-18 01:13] LABS: Alanine Aminotransferase 40 U/L (0-33); Albumin Level 4.1 g/dL (3.5-5.2); Alkaline Phosphatase 75 U/L (35-105); Blood Urea Nitrogen 9 mg/dL (6-20); Calcium 9.5 mg/dL (8.5-10.5); Carbon Dioxide 22 mmol/L (22-29); Chloride 102 mmol/L (98-107); Globulin 3.4 g/dL (1.3-4.6); Glomerular Filtration Rate 192.9 mL/min (90-130); Glucose 150 mg/dL (65-115); Lipase 34 U/L (13-60); Osmolality Calculated 286 mOsm/kg (285-295); Sodium 137 mmol/L (136-145); Total Bilirubin 0.2 mg/dL (0.15-1.2); Total Protein 7.5 g/dL (6.6-8.7)
[2022-03-18 01:15] LABS: Anion Gap 17.1 (5-19); Potassium 4.1 mmol/L (3.5-5.1)
[2022-03-18 01:16] LABS: Aspartate Amino Transferase 28 U/L (0-32)
[2022-03-18] MEDS: dicyclomine 20 mg Tablet PO (01:44)
[2022-03-18 01:55] VITALS: BP 160/83; PULSE 85; RESP 16; O2SAT 97
== END 2022-03-18 02:00 | disposition home or self-care (01) ==
PROVIDERS: Emergency Provider Emergency Medicine
DX: R10.32 Left lower quadrant pain (principal); F17.200 Nicotine dependence, unspecified, uncomplicated
CPT/HCPCS: 36415; 74018; 80053; 81003; 83690; 84703; 85025; 96361; 96374; 99284; J2405; J7030

== ENCOUNTER → 2022-04-13 10:33 | Outpatient (BNVA) | payer SELFPAY | PROVIDERS: PCP Family Medicine; Visit Provider Family Medicine | DX: I10 Essential (primary) hypertension (principal); F31.9 Bipolar disorder, unspecified; Z12.4 Encounter for screening for malignant neoplasm of cervix; R06.83 Snoring; R73.09 Other abnormal glucose; Z68.43 Body mass index [BMI] 50.0-59.9, adult; J30.2 Other seasonal allergic rhinitis | CPT/HCPCS: 80053; 83036; 84439; 84443 ==

== ENCOUNTER 2022-04-21 19:57 | Emergency (ER) | payer SELFPAY ==
[2022-04-21 20:19] VITALS: BP 168/86; PULSE 97; RESP 17; TEMP 36.9; O2SAT 97; BMI 46.2
[2022-04-21] MEDS: ketorolac 60 mg/2 mL INJ IM (22:44)
[2022-04-21] MEDS: amoxicillin-clav 875-125 mg Tablet 1 TAB PO (22:44)
[2022-04-21] MEDS: predniSONE 20 mg Tablet 40 MG PO (22:44)
--- NOTE | 2022-04-21 22:46 | ED_ITS ---
Documented by User: HEAVENLY Avila 04/22/22 01:49 HPI - General Adult General: Chief complaint: General Medical Stated complaint: neck pain, sob Time Seen by Provider: 04/21/22 22:04 History of Present Illness: Patient reports that for a couple of weeks she has had significant nasal congestion and drainage. She reports that they put her on allergy medication but it does not seem to be helping. She reports that seems to be worsening since the past week and definitely over the past 2 days. She reports that she is feeling feverish at home. She has swelling on both sides of her neck. She denies any difficulty breathing. She has had a dry cough. She denies any possibility of Associated symptoms: Deny chest pain, dyspnea or palpitations Review of Systems Const: Reports: fever(s) and chills ENMT: Reports: throat pain, nasal discharge and nasal congestion Card: Denies: chest pain or palpitations Resp: Reports: non-productive cough; Denies: dyspnea Francisco/Lymph: Reports: enlarged lymph nodes and tender lymph nodes PFSH ED PFSH: Medical History Bipolar 1 disorder BMI 50.0-59.9, adult Hx of transfusion of whole blood Hypertension Laceration of left knee without complication No pertinent family history Surgical History No pertinent past surgical history Family History Mother Anemia Psychiatric illness bipolar Other Cancer Chronic kidney disease (CKD) Clotting disorder Dementia Diabetes Hyperlipidemia Hypertension Stroke Denies family history of CAD (coronary artery disease) Suicide Anesthesia complication Bleeding disorder Family history of premature coronary artery disease Lung disease Social History Smoking and tobacco status: current every day smoker cigarettes [ Other cigarette details: 2PPD x 1yr] Alcohol intake: never Female Reproductive History: Date of last menstrual period: 03/06/22 Physical Exam Const: COMMON NORMALS: no acute distress, patient oriented x3 and alert NUTRITIONAL APPEARANCE: obese morbidly obese HENMT: FACE & SINUS: sinus tenderness (Bilateral) maxillary TYMPANIC MEMBRANE: other (Right TM slightly erythematous. Left TM within normal limits) THROAT: uvula midline and postnasal drainage Lymph: LYMPHATIC: lymphadenopathy (Bilateral anterior cervical lymphadenopathy-worse on right) OTHER: Patient has more tender lymphadenopathy on the right side neck. Resp: COMMON NORMALS: normal respiratory effort, No use of accessory muscles and clear to auscultation bilaterally AUSCULTATION: clear to auscultation bilaterally Cardio: COMMON NORMALS: regular rate, regular rhythm, S1 normal heart sound present, S2 normal heart sound present and No murmurs present (Cardio) RATE: regular rate RHYTHM: regular rhythm HEART SOUNDS: S1 normal heart sound present and S2 normal heart sound present Neuro: COMMON NORMALS: patient oriented x3 SENSORIUM/ORIENTATION: Yes alert Course Vital Signs: Vital signs: Vital Signs Temperature 98.0 F 04/21/22 23:14 Pulse Rate 96 04/21/22 23:14 Respiratory Rate 18 04/21/22 23:14 Blood Pressure 143/86 04/21/22 23:14 Pulse Oximetry 96 04/21/22 23:14 Oxygen Delivery Me thod 04/21/22 20:19 MDM - General Adult Medical Decision Making Patient is in tonight for neck pain, general ill feeling. Patient physical exam coupled with the history is consistent with acute maxillary sinusitis. Patient has tenderness to palpation bilateral maxillary sinuses. This follows a 2-week run of nasal congestion and drainage has been uncontrolled. Patient has been having intermittent low-grade fevers. Patient does have lymphadenopathy and tender lymphadenopathy on the right side anterior cervical. Advised her that we will go ahead and treat to cover for infection however I would like her to follow up with primary care provider for any ongoing treatment or testing needing to be done. Patient given first dose of antibiotic and 1 dose of steroid tonight along with the Toradol injection. I have plan to send patient home with a 5-day prescription for prednisone however patient then advised me that her blood sugars have been running all over the place. She has recently been started on metformin by her primary care provider. I opted to cancel the prescription of prednisone due to her reported elevated blood sugars. I will have her continue to follow-up with primary care provider if she is persisting with lymphadenopathy after the infection is treated then may reevaluate the need for steroids at that time. Return to the ER as needed for any new or worsening symptoms. As patient was leaving she asked for a prescription for ibuprofen she has advised that she cannot start taking ibuprofen until tomorrow after having Toradol injection in the ER tonight. Discharge Plan Discharge Patient Disposition: Home Clinical Impression: Acute maxillary sinusitis, unspecified, Lymphadenopathy, anterior cervical Condition: Stable Prescriptions: New amoxicillin-pot clavulanate 875-125 mg tablet 1 tab PO BID 10 Days Qty: 20 0RF ibuprofen 600 mg tablet 600 mg PO Q8H PRN (Reason: pain) Qty: 10 0RF No Action cetirizine [Zyrtec] 10 mg tablet 10 mg PO DAILY PRN (Reason: allergy symptoms) Qty: 60 0RF fluticasone propionate [Flonase Allergy Relief] 50 mcg/actuation spray,suspension 2 spray intranasal DAILY Qty: 16 1RF Rx Instructions: administer into each nostril metformin 500 mg tablet extended release 24 hr 500 mg PO BID Qty: 180 1RF Discharge Orders: Discharge ED (Routine); Ordered 04/21/22 Ordered By: Domi Link Referrals: Kavon Gaines MD [Primary Care Provider] - Discharge Diet: Usual diet Discharge Activity: Resume usual activity Patient Instructions: Lymphadenopathy, Sinusitis - Acute Activity Restrictions/Additional Instructions: Take antibiotic as prescribed starting tomorrow. No more ibuprofen tonight after having Toradol in the ER. Continue using [id number] Flonase and antihistamine to help control nasal allergies and postnasal drainage. I recommend using a Ilda pot to keep the sinuses cleaned out. Follow-up with primary care provider as needed should your lymph node not be resolving after treatment of the infection. 1 dose of steroid was given tonight in the ER however I am not going to continue a steroid prescription at this time because you have reported elevated blood glucose/blood sugar levels. I would like you to follow-up with your primary care provider next week for reevaluation. Return to the ER for any new or worsening symptoms. Coding Level of Care Code ED Security Compliance Specialist for Chg Fwd Exam Detailed Documented by User: Celestino Mcgovern DO 04/24/22 15:27 HPI - General Adult General: Chief complaint: General Medical Stated complaint: neck pain, sob Time Seen by Provider: 04/21/22 22:04 PFSH ED PFSH: Medical History Bipolar 1 disorder BMI 50.0-59.9, adult Hx of transfusion of whole blood Hypertension Laceration of left knee without complication No pertinent family history Surgical History No pertinent past surgical history Family History Mother Anemia Psychiatric illness bipolar Other Cancer Chronic kidney disease (CKD) Clotting disorder Dementia Diabetes Hyperlipidemia Hypertension Stroke Denies family history of CAD (coronary artery disease) Suicide Anesthesia complication Bleeding disorder Family history of premature coronary artery disease Lung disease Social History Smoking and tobacco status: current every day smoker cigarettes [ Other cigarette details: 2PPD x 1yr] Alcohol intake: never Course Vital Signs: Vital signs: Vital Signs Temperature 98.0 F 04/21/22 23:14 Pulse Rate 96 04/21/22 23:14 Respiratory Rate 18 04/21/22 23:14 Blood Pressure 143/86 04/21/22 23:14 Pulse Oximetry 96 04/21/22 23:14 Oxygen Delivery Me thod 04/21/22 20:19 MDM - General Adult Medical Decision Making Patient is in tonight for neck pain, general ill feeling. Patient physical exam coupled with the history is consistent with acute maxillary sinusitis. Patient has tenderness to palpation bilateral maxillary sinuses. This follows a 2-week run of nasal congestion and drainage has been uncontrolled. Patient has been having intermittent low-grade fevers. Patient does have lymphadenopathy and tender lymphadenopathy on the right side anterior cervical. Advised her that we will go ahead and treat to cover for infection however I would like her to follow up with primary care provider for any ongoing treatment or testing needing to be done. Patient given first dose of antibiotic and 1 dose of steroid tonight along with the Toradol injection. I have plan to send patient home with a 5-day prescription for prednisone however patient then advised me that her blood sugars have been running all over the place. She has recently been started on metformin by her primary care provider. I opted to cancel the prescription of prednisone due to her reported elevated blood sugars. I will have her continue to follow-up with primary care provider if she is persisting with lymphadenopathy after the infection is treated then may reevaluate the need for steroids at that time. Return to the ER as needed for any new or worsening symptoms. As patient was leaving she asked for a prescription for ibuprofen she has advised that she cannot start taking ibuprofen until tomorrow after having Toradol injection in the ER tonight. Chart reviewed and patient discussed with midlevel. Agree with assessment and plan. Discharge Plan Discharge Patient Disposition: Home Clinical Impression: Acute maxillary sinusitis, unspecified, Lymphadenopathy, anterior cervical Condition: Stable Prescriptions: New amoxicillin-pot clavulanate 875-125 mg tablet 1 tab PO BID 10 Days Qty: 20 0RF ibuprofen 600 mg tablet 600 mg PO Q8H PRN (Reason: pain) Qty: 10 0RF No Action cetirizine [Zyrtec] 10 mg tablet 10 mg PO DAILY PRN (Reason: allergy symptoms) Qty: 60 0RF fluticasone propionate [Flonase Allergy Relief] 50 mcg/actuation spray,suspension 2 spray intranasal DAILY Qty: 16 1RF Rx Instructions: administer into each nostril metformin 500 mg tablet extended release 24 hr 500 mg PO BID Qty: 180 1RF Discharge Orders: Discharge ED (Routine); Ordered 04/21/22 Ordered By: Domi Link Referrals: Kavon Gaines MD [Primary Care Provider] - Discharge Diet: Usual diet Discharge Activity: Resume usual activity Patient Instructions: Lymphadenopathy, Sinusitis - Acute Activity Restrictions/Additional Instructions: Take antibiotic as prescribed starting tomorrow. No more ibuprofen tonight after having Toradol in the ER. Continue using [id number] Flonase and antihistamine to help control nasal allergies and postnasal drainage. I recommend using a Ilda pot to keep the sinuses cleaned out. Follow-up with primary care provider as needed should your lymph node not be resolving after treatment of the infection. 1 dose of steroid was given tonight in the ER however I am not going to continue a steroid prescription at this time because you have reported elevated blood glucose/blood sugar levels. I would like you to follow-up with your primary care provider next week for reevaluation. Return to the ER for any new or worsening symptoms. Coding Level of Care Code ED Security Compliance Specialist for Chg Fwd Exam Detailed
[2022-04-21 23:10] VITALS: BP 143/88; PULSE 95; RESP 18; TEMP 36.7
[2022-04-21 23:14] VITALS: BP 143/86; PULSE 96; RESP 18; TEMP 36.7; O2SAT 96
== END 2022-04-21 23:10 | disposition home or self-care (01) ==
PROVIDERS: Emergency Provider Nurse Practitioner Family; PCP Family Medicine
DX: J01.00 Acute maxillary sinusitis, unspecified (principal); R59.1 Generalized enlarged lymph nodes; F17.210 Nicotine dependence, cigarettes, uncomplicated; I10 Essential (primary) hypertension
CPT/HCPCS: 96372; 99284; J1885; J7512

== ENCOUNTER 2022-05-05 14:46 | Emergency (ER) | payer SELFPAY ==
[2022-05-05 15:02] VITALS: BP 138/78; PULSE 102; RESP 18; TEMP 36.6; O2SAT 97; BMI 32.7
--- NOTE | 2022-05-05 15:42 | W.ED.PSYCHS ---
HPI - Psych General: Chief Complaint: Psychiatric Symptoms Stated Complaint: SI Time Seen by Provider: 05/05/22 14:53 History of Present Illness: 27-year-old female presents the emergency department stating that she feels sad, resentful at some of the comments made by her tucker's family, and in general feels rather depressed. She says that she does not have thoughts of or dying nor any and tension or thoughts of hurting herself or anyone else. She does not have hallucinations, paranoia, delusions. She does state that she has been diagnosed with bipolar 1 disorder in the past but has not been on any medication for 7 years. Associated symptoms: Reports depression; Deny auditory hallucinations, visual hallucinations, delusions, homicidal ideation or suicidal ideation Review of Systems General: Reports: 10 or more systems reviewed and unremarkable except in HPI and below Psych: Reports: depression, mood swings, hopelessness, irritability and difficulty concentrating; Denies: panic attacks, visual hallucinations, auditory hallucinations, suicidal ideation or homicidal ideation [facility] ED PFSH: Medical History Bipolar 1 disorder BMI 50.0-59.9, adult Hx of transfusion of whole blood Hypertension Laceration of left knee without complication No pertinent family history Surgical History No pertinent past surgical history Family History Mother Anemia Psychiatric illness bipolar Other Cancer Chronic kidney disease (CKD) Clotting disorder Dementia Diabetes Hyperlipidemia Hypertension Stroke Denies family history of CAD (coronary artery disease) Suicide Anesthesia complication Bleeding disorder Family history of premature coronary artery disease Lung disease Social History (Updated 05/05/22 @ 13:47 by Sonia Holland LPN) Smoking and tobacco status: current every day smoker cigarettes [ Other cigarette details: 2PPD x 1yr] Alcohol intake: never Desire information about alcohol rehabilitation?: No Desire information about substance/drug rehabilitation?: No Lives independently: Yes Female Reproductive History: Date of last menstrual period: 03/06/22 Physical Exam Const: COMMON NORMALS: no limitations, alert and well nourished EXAM LIMITATIONS: no altered mental status GENERAL APPEARANCE: well kempt HENMT: COMMON NORMALS: normocephalic, atraumatic and external ears normal HEAD & SCALP: normocephalic and atraumatic EXTERNAL EAR: Yes external ears normal MOUTH: no muffled voice Neck/C-Spine: GENERAL: Yes normal visual inspection and Yes trachea midline Resp: COMMON NORMALS: normal respiratory effort and No use of accessory muscles Extremity: COMMON NORMALS: normal to inspection Neuro: COMMON NORMALS: moves all extremities, no focal motor deficits and no sensory deficits noted SENSORIUM/ORIENTATION: Yes alert Psych: COMMON NORMALS: mental status grossly normal, Normal thought process present, cooperative, normal affect and speech normal APPEARANCE: Yes well kempt ATTITUDE: Yes calm ACTIVITY/MOTOR BEHAVIOR: Yes appropriate eye contact, No psychomotor agitation, No psychomotor slowing, No fidgeting, No hyperactivity and No restless SPEECH: Yes normal speech MOOD & AFFECT: Yes depressed mood THOUGHT PROCESS: Normal thought process present, not circumstantial, No incoherent, No disorganized, No confused, no flight of ideas, normal association, not perseverating and not tangential THOUGHT CONTENT: No Suicidality present, No Homicidality present, No Phobia(s) present, No delusions, No Ideas of reference present (thought content) and No rumination(s) ATTENTION/CONCENTRATION: Yes attention grossly intact and Yes concentration grossly intact MEMORY/COGNITION: Yes cognition grossly intact INSIGHT: Good insight present (Psych) JUDGEMENT: Fair judgement present (Psych) Skin: COMMON NORMALS: no rashes or lesions noted, turgor normal and no jaundice GENERAL SKIN EXAM: no rashes or lesions noted and turgor normal Course Vital Signs: Vital signs: Vital Signs Temperature 98 F 05/05/22 15:02 Pulse Rate 102 H 05/05/22 15:02 Respiratory Rate 18 05/05/22 15:02 Blood Pressure 138/78 05/05/22 15:02 Pulse Oximetry 97 05/05/22 15:02 Oxygen Delivery Me thod 05/05/22 15:02 MDM - Psych Medical Decision Making I have spoken with Dr Rashid. Given patient not imminent harm to self/others and doesn't have psychosis, will refer to [facility] for eval and treat as outpatient. Given Bipolar Disorder daignosed in her youth, he wouldn't recommend starting meds in ED but rather allow for full eval prior to choosing med. She does report chronic hyperglycemia, even on fasting in the morning. I will increase her metformin from 500mg po bid to 100mg po bid. She has a f/u in 1.5 weeks with PCP for this. Discharge Plan Discharge Patient Disposition: Home Clinical Impression: Depressed mood Condition: Stable Prescriptions: New metformin 1,000 mg tablet 1,000 mg PO BID Qty: 60 0RF Discontinued amoxicillin-pot clavulanate 875-125 mg tablet 1 tab PO BID Rx Instructions: rx filled 04/24/22 10d/s metformin 500 mg tablet extended release 24 hr 500 mg PO BID@08,20 No Action cetirizine [Zyrtec] 10 mg tablet 10 mg PO DAILY PRN (Reason: allergy symptoms) Qty: 60 0RF ibuprofen 600 mg tablet 600 mg PO Q8H PRN (Reason: pain) Qty: 10 0RF albuterol sulfate 90 mcg/actuation HFA aerosol inhaler 2 puff INHALATION Q4H PRN (Reason: Shortness Of Breath) Flonase Allergy Relief 50 mcg/actuation spray,suspension 2 spray intranasal BEDTIME Rx Instructions: administer into each nostril Discharge Orders: Discharge ED (Routine); Ordered 05/05/22 Ordered By: Derrek Cortez Referrals: [facility], [Staff Physician] - 4-7 days (Positive screen for depression symptoms and reported hx of bipolar disorder) Kavon Gaines MD [Primary Care Provider] - Discharge Diet: Advance as tolerated Discharge Activity: Resume usual activity Patient Instructions: Depression (ED), Opioid Safety, Pain Management Activity Restrictions/Additional Instructions: Return to the ER if you have thoughts of hurting yourself or others. Otherwise, please try and stay positive, remain active, and follow up with [facility]: [facility] service in [facility], [address], [place] [address] Phone:? Coding Level of Care Code ED Delive[employer] for Kimmie Fwd Exam Comprehensive
--- NOTE | 2022-05-08 07:55 | PC.SOCIAL ---
Addendum entered by Casandra Cool 06/14/22 13:52: accreditation manager received the following message from [facility] regarding follow up appointment: emailed Christy Carroll completed item. Original Note: [facility] Referral Consult received for [facility] referral. Referral sent to [facility] at this time, clinic will contact patient with appointment date/time.
== END 2022-05-05 16:10 | disposition home or self-care (01) ==
PROVIDERS: Emergency Provider Emergency Medicine; PCP Family Medicine
DX: F32.A Depression, unspecified (principal); I10 Essential (primary) hypertension; F17.210 Nicotine dependence, cigarettes, uncomplicated
CPT/HCPCS: 99283

== ENCOUNTER 2022-05-27 21:53 | Emergency (ER) | payer SELFPAY ==
[2022-05-27 22:16] VITALS: BP 162/83; PULSE 98; RESP 16; TEMP 36.6; O2SAT 99; BMI 47.0
[2022-05-27 22:55] LABS: HCG Qualitative Urine. Negative (Negative)
[2022-05-27 23:03] LABS: Add Urine Microscopic? YES; Bilirubin Urine Neg (Negative); Blood Urine 3+ (Negative); Glucose Urine UA Norm (Normal); Ketones Urine Negative (Negative); Leukocyte Esterase Urine Trace (Negative); Nitrate Urine Negative (Negative); Protein Urine 2+ (Negative); Specific Gravity, Urine 1.025 (1.005-1.030); Urine Appearance Cloudy (CLEAR); Urine Color Dark Yellow (Yellow); Urobilinogen Urine Neg (Negative); pH Urine 5 (5-7)
[2022-05-27 23:04] LABS: RBC Urine TOO NUMEROUS TO CNT /hpf (0-2); WBC Urine 15-25 /hpf (0-5)
[2022-05-27 23:05] LABS: Bacteria Urine 1+ /hpf
[2022-05-27 23:06] LABS: Add Urine Culture? Yes
--- NOTE | 2022-05-28 00:04 | W.ED.FEMALGU ---
Documented by User: MELISSA Fraga 05/28/22 01:12 HPI - Female Genitourinary General: Chief complaint: Vaginal Bleeding Stated complaint: vaginal discharge Time Seen by Provider: 05/28/22 00:04 History of Present Illness: 27-year-old female comes in today for concerns of bleeding since 10 May. Patient denies any fever or chills. Patient has been had an evaluation in December for STI and was negative. Patient is concerned she might be or there is another reason that she may be having abnormal bleeding. Patient appears nontoxic. Patient appears in no pain. Associated symptoms: Deny nausea Date of Last Menstrual Period: 03/06/22 Review of Systems Const: Denies: fever(s) Card: Denies: chest pain GI: Denies: nausea or vomiting : Reports: vaginal bleeding PFSH ED PFSH: Medical History Bipolar 1 disorder BMI 50.0-59.9, adult Hx of transfusion of whole blood Hypertension Laceration of left knee without complication No pertinent family history Surgical History No pertinent past surgical history Family History Mother Anemia Psychiatric illness bipolar Other Cancer Chronic kidney disease (CKD) Clotting disorder Dementia Diabetes Hyperlipidemia Hypertension Stroke Denies family history of CAD (coronary artery disease) Suicide Anesthesia complication Bleeding disorder Family history of premature coronary artery disease Lung disease Social History (Updated 05/25/22 @ 14:00 by Sonia Holland LPN) Smoking and tobacco status: current every day smoker cigarettes [ Other cigarette details: 2PPD x 1yr] Alcohol intake: never Desire information about alcohol rehabilitation?: No Desire information about substance/drug rehabilitation?: No Lives independently: Yes Female Reproductive History: Date of last menstrual period: 03/06/22 Physical Exam Const: COMMON NORMALS: alert HENMT: COMMON NORMALS: normocephalic HEAD & SCALP: normocephalic Resp: COMMON NORMALS: normal respiratory effort and clear to auscultation bilaterally AUSCULTATION: clear to auscultation bilaterally Cardio: COMMON NORMALS: regular rate and regular rhythm RATE: regular rate RHYTHM: regular rhythm GI: COMMON NORMALS: Soft to palpation and non-tender PALPATION: Yes Soft to palpation : COMMON NORMALS: Yes no CVA tenderness BLADDER/KIDNEY EXAM: Yes no CVA tenderness Back/Pelvis: COMMON NORMALS: no CVA tenderness Extremity: COMMON NORMALS: full ROM Neuro: SENSORIUM/ORIENTATION: Yes alert Skin: COMMON NORMALS: turgor normal GENERAL SKIN EXAM: turgor normal Course Vital Signs: Vital signs: Vital Signs Temperature 97.8 F 05/27/22 22:16 Pulse Rate 92 05/28/22 01:09 Respiratory Rate 18 05/28/22 01:09 Blood Pressure 156/81 05/28/22 01:09 Pulse Oximetry 99 05/28/22 01:09 Oxygen Delivery Me thod 05/27/22 22:16 MDM - Female Medical Decision Making 27-year-old female comes in today for concerns of vaginal bleeding. Patient is concerned she might be and miscarrying. Patient appears nontoxic. Patient reports no fever. Abdomen soft nontender. No CVA tenderness. Vital signs are normal except for some elevation of blood pressure at 162 systolic. Differential diagnosis includes but not limited to abnormal uterine bleeding, menstrual bleeding, PCOS. Urinalysis had a large amount of blood in it. Urine hCG was negative. Patient requested a serum hCG for verification. CBC was unremarkable. Reviewed exam with patient offered medication/hormone to help control bleeding patient refused at this time. Patient does have an appointment to see MEDICAL SERVICE TECHNICIAN in 1 week. Patient will follow-up with MEDICAL SERVICE TECHNICIAN return to ER for worsening symptoms such as lightheadedness, syncopal episode, or fever greater than 100.4. Lab Data 05/28/22 00:40 Laboratory Results WBC 8.5 10^3/uL (4.0-10.0) 05/28/22 00:40 RBC 5.60 10^6/uL (4.1-5.3) H 05/28/22 00:40 Hgb 14.7 g/dL (11.5-15.3) 05/28/22 00:40 Hct 44.6 % (37.0-47.0) 05/28/22 00:40 MCV 79.6 fl (81-99) L 05/28/22 00:40 MCH 26.3 pg (28.0-34.0) L 05/28/22 00:40 MCHC 33.0 g/dL (30.0-36.0) 05/28/22 00:40 RDW 12.8 % (12.1-15.1) 05/28/22 00:40 Plt Count 293 10^3/cmm (130-400) 05/28/22 00:40 MPV 10.1 fL (7.4-10.4) 05/28/22 00:40 Neut % (Auto) 65.3 % 05/28/22 00:40 Lymph % (Auto) 25.2 % 05/28/22 00:40 [place] % (Auto) 4.6 % 05/28/22 00:40 Eos % (Auto) 3.8 % 05/28/22 00:40 Baso % (Auto) 0.6 % 05/28/22 00:40 Neut # (Auto) 5.55 10^3/uL (1.8-7.7) 05/28/22 00:40 Lymph # (Auto) 2.1 10^3/uL (0.8-4.8) 05/28/22 00:40 [place] # (Auto) 0.4 10^3/uL (0.2-0.9) 05/28/22 00:40 Eos # (Auto) 0.3 10^3/uL (0.0-0.8) 05/28/22 00:40 Baso # (Auto) 0.1 10^3/uL (0.0-0.1) 05/28/22 00:40 Nucleated RBC % (auto) 0 % 05/28/22 00:40 Nucleated RBCs # 0.0 /100WBC 05/28/22 00:40 HCG, Qual Negative (Negative) 05/28/22 00:40 Urine Color Dark yellow (Yellow) 05/27/22 22:43 Urine Appearance Cloudy (CLEAR) A 05/27/22 22:43 Urine pH 5 (5-7) 05/27/22 22:43 Ur Specific [place] 1.025 (1.005-1.030) 05/27/22 22:43 Urine Protein 2+ (Negative) H 05/27/22 22:43 Urine Glucose (UA) Norm (Normal) 05/27/22 22:43 Urine Ketones Negative (Negative) 05/27/22 22:43 Urine Blood 3+ (Negative) H 05/27/22 22:43 Urine Nitrate Negative (Negative) 05/27/22 22:43 Urine Bilirubin Neg (Negative) 05/27/22 22:43 Urine Urobilinogen Neg mg/dL (Negative) 05/27/22 22:43 Ur Leukocyte Esterase Trace (Negative) H 05/27/22 22:43 Urine RBC Too numerous to cnt /hpf (0-2) H 05/27/22 22:43 Urine WBC 15-25 /hpf (0-5) H 05/27/22 22:43 Ur Squamous Epith Cells 5-10 /hpf (0-5) H 05/27/22 22:43 Amorphous Sediment Not Reportable 05/27/22 22:43 Urine Bacteria 1+ /hpf (NONE) H 05/27/22 22:43 Discharge Plan Discharge Patient Disposition: Home Clinical Impression: Abnormal uterine bleeding (AUB) Condition: Stable Prescriptions: No Action cetirizine [Zyrtec] 10 mg tablet 10 mg PO DAILY PRN (Reason: allergy symptoms) Qty: 60 0RF ibuprofen 600 mg tablet 600 mg PO Q8H PRN (Reason: pain) Qty: 10 0RF albuterol sulfate 90 mcg/actuation HFA aerosol inhaler 2 puff INHALATION Q4H PRN (Reason: Shortness Of Breath) Flonase Allergy Relief 50 mcg/actuation spray,suspension 2 spray intranasal BEDTIME Rx Instructions: administer into each nostril metformin 1,000 mg tablet 1,000 mg PO BID Qty: 60 0RF Discharge Orders: Discharge ED (Routine); Ordered 05/28/22 Ordered By: Umer Estrada Referrals: Kavon Gaines MD [Primary Care Provider] - Patient Instructions: Abnormal (Dysfunctional) Uterine Bleeding (ED) Activity Restrictions/Additional Instructions: Home and rest. Drink plenty of fluids. Follow-up with MEDICAL SERVICE TECHNICIAN at scheduled appointment. Return to emergency department for worsening symptoms such as lightheadedness, passing out, bleeding through more than 1 pad in 1 hour, or fever greater than 100.4. Coding Level of Care Code ED Metal Treater for Chg Fwd Exam Comprehensive Documented by User: Billy Iglesias, 05/28/22 17:01 HPI - Female Genitourinary General: Chief complaint: Vaginal Bleeding Stated complaint: vaginal discharge Time Seen by Provider: 05/28/22 00:04 PFSH ED PFSH: Medical History Bipolar 1 disorder BMI 50.0-59.9, adult Hx of transfusion of whole blood Hypertension Laceration of left knee without complication No pertinent family history Surgical History No pertinent past surgical history Family History Mother Anemia Psychiatric illness bipolar Other Cancer Chronic kidney disease (CKD) Clotting disorder Dementia Diabetes Hyperlipidemia Hypertension Stroke Denies family history of CAD (coronary artery disease) Suicide Anesthesia complication Bleeding disorder Family history of premature coronary artery disease Lung disease Social History (Updated 05/25/22 @ 14:00 by Sonia Holland LPN) Smoking and tobacco status: current every day smoker cigarettes [ Other cigarette details: 2PPD x 1yr] Alcohol intake: never Desire information about alcohol rehabilitation?: No Desire information about substance/drug rehabilitation?: No Lives independently: Yes Course Vital Signs: Vital signs: Vital Signs Temperature 97.8 F 05/27/22 22:16 Pulse Rate 92 05/28/22 01:09 Respiratory Rate 18 05/28/22 01:09 Blood Pressure 156/81 05/28/22 01:09 Pulse Oximetry 99 05/28/22 01:09 Oxygen Delivery Me thod 05/27/22 22:16 MDM - Female Medical Decision Making 27-year-old female comes in today for concerns of vaginal bleeding. Patient is concerned she might be and miscarrying. Patient appears nontoxic. Patient reports no fever. Abdomen soft nontender. No CVA tenderness. Vital signs are normal except for some elevation of blood pressure at 162 systolic. Differential diagnosis includes but not limited to abnormal uterine bleeding, menstrual bleeding, PCOS. Urinalysis had a large amount of blood in it. Urine hCG was negative. Patient requested a serum hCG for verification. CBC was unremarkable. Reviewed exam with patient offered medication/hormone to help control bleeding patient refused at this time. Patient does have an appointment to see MEDICAL SERVICE TECHNICIAN in 1 week. Patient will follow-up with MEDICAL SERVICE TECHNICIAN return to ER for worsening symptoms such as lightheadedness, syncopal episode, or fever greater than 100.4. This patient was originally seen by MELISSA Pham. I agree with his history, evaluation, and treatment. Lab Data 05/28/22 00:40 Laboratory Results WBC 8.5 10^3/uL (4.0-10.0) 05/28/22 00:40 RBC 5.60 10^6/uL (4.1-5.3) H 05/28/22 00:40 Hgb 14.7 g/dL (11.5-15.3) 05/28/22 00:40 Hct 44.6 % (37.0-47.0) 05/28/22 00:40 MCV 79.6 fl (81-99) L 05/28/22 00:40 MCH 26.3 pg (28.0-34.0) L 05/28/22 00:40 MCHC 33.0 g/dL (30.0-36.0) 05/28/22 00:40 RDW 12.8 % (12.1-15.1) 05/28/22 00:40 Plt Count 293 10^3/cmm (130-400) 05/28/22 00:40 MPV 10.1 fL (7.4-10.4) 05/28/22 00:40 Neut % (Auto) 65.3 % 05/28/22 00:40 Lymph % (Auto) 25.2 % 05/28/22 00:40 [place] % (Auto) 4.6 % 05/28/22 00:40 Eos % (Auto) 3.8 % 05/28/22 00:40 Baso % (Auto) 0.6 % 05/28/22 00:40 Neut # (Auto) 5.55 10^3/uL (1.8-7.7) 05/28/22 00:40 Lymph # (Auto) 2.1 10^3/uL (0.8-4.8) 05/28/22 00:40 [place] # (Auto) 0.4 10^3/uL (0.2-0.9) 05/28/22 00:40 Eos # (Auto) 0.3 10^3/uL (0.0-0.8) 05/28/22 00:40 Baso # (Auto) 0.1 10^3/uL (0.0-0.1) 05/28/22 00:40 Nucleated RBC % (auto) 0 % 05/28/22 00:40 Nucleated RBCs # 0.0 /100WBC 05/28/22 00:40 HCG, Qual Negative (Negative) 05/28/22 00:40 Urine Color Dark yellow (Yellow) 05/27/22 22:43 Urine Appearance Cloudy (CLEAR) A 05/27/22 22:43 Urine pH 5 (5-7) 05/27/22 22:43 Ur Specific [place] 1.025 (1.005-1.030) 05/27/22 22:43 Urine Protein 2+ (Negative) H 05/27/22 22:43 Urine Glucose (UA) Norm (Normal) 05/27/22 22:43 Urine Ketones Negative (Negative) 05/27/22 22:43 Urine Blood 3+ (Negative) H 05/27/22 22:43 Urine Nitrate Negative (Negative) 05/27/22 22:43 Urine Bilirubin Neg (Negative) 05/27/22 22:43 Urine Urobilinogen Neg mg/dL (Negative) 05/27/22 22:43 Ur Leukocyte Esterase Trace (Negative) H 05/27/22 22:43 Urine RBC Too numerous to cnt /hpf (0-2) H 05/27/22 22:43 Urine WBC 15-25 /hpf (0-5) H 05/27/22 22:43 Ur Squamous Epith Cells 5-10 /hpf (0-5) H 05/27/22 22:43 Amorphous Sediment Not Reportable 05/27/22 22:43 Urine Bacteria 1+ /hpf (NONE) H 05/27/22 22:43 Discharge Plan Discharge Patient Disposition: Home Clinical Impression: Abnormal uterine bleeding (AUB) Condition: Stable Prescriptions: No Action cetirizine [Zyrtec] 10 mg tablet 10 mg PO DAILY PRN (Reason: allergy symptoms) Qty: 60 0RF ibuprofen 600 mg tablet 600 mg PO Q8H PRN (Reason: pain) Qty: 10 0RF albuterol sulfate 90 mcg/actuation HFA aerosol inhaler 2 puff INHALATION Q4H PRN (Reason: Shortness Of Breath) Flonase Allergy Relief 50 mcg/actuation spray,suspension 2 spray intranasal BEDTIME Rx Instructions: administer into each nostril metformin 1,000 mg tablet 1,000 mg PO BID Qty: 60 0RF Discharge Orders: Discharge ED (Routine); Ordered 05/28/22 Ordered By: Umer Estrada Referrals: Kavon Gaines MD [Primary Care Provider] - Patient Instructions: Abnormal (Dysfunctional) Uterine Bleeding (ED) Activity Restrictions/Additional Instructions: Home and rest. Drink plenty of fluids. Follow-up with MEDICAL SERVICE TECHNICIAN at scheduled appointment. Return to emergency department for worsening symptoms such as lightheadedness, passing out, bleeding through more than 1 pad in 1 hour, or fever greater than 100.4. Coding Level of Care Code ED Metal Treater for Chg Fwd Exam Comprehensive
[2022-05-28 00:48] LABS: Basophils # 0.1 10^3/uL (0.0-0.1); Basophils % 0.6 %; Eosinophils # 0.3 10^3/uL (0.0-0.8); Eosinophils % 3.8 %; Hematocrit 44.6 % (37.0-47.0); Hemoglobin 14.7 g/dL (11.5-15.3); Lymphocytes # 2.1 10^3/uL (0.8-4.8); Lymphocytes % 25.2 %; Mean Corpuscular Hemoglobin 26.3 pg (28.0-34.0); Mean Corpuscular Volume 79.6 fl (81-99); Mean Platelet Volume 10.1 fL (7.4-10.4); Monocytes # 0.4 10^3/uL (0.2-0.9); Monocytes % 4.6 %; Neutrophils # 5.55 10^3/uL (1.8-7.7); Neutrophils % 65.3 %; Nucleated Red Blood Cells % 0 %; Platelet Count 293 10^3/cmm (130-400); Red Cell Distribution Width 12.8 % (12.1-15.1); White Blood Count 8.5 10^3/uL (4.0-10.0)
[2022-05-28 01:01] LABS: HCG, Serum Qual Negative (Negative)
[2022-05-28 01:09] VITALS: BP 156/81; PULSE 92; RESP 18; O2SAT 99
== END 2022-05-28 01:10 | disposition home or self-care (01) ==
PROVIDERS: Emergency Medicine; Emergency Provider Nurse Practitioner Family; PCP Family Medicine
DX: N93.9 Abnormal uterine and vaginal bleeding, unspecified (principal); F17.210 Nicotine dependence, cigarettes, uncomplicated
CPT/HCPCS: 81001; 81025; 84703; 85025; 87086; 99283

== ENCOUNTER 2022-06-22 02:37 | Emergency (ER) | payer SELFPAY ==
[2022-06-22 02:41] VITALS: BP 167/111; PULSE 111; RESP 22; TEMP 36.4; O2SAT 97; BMI 47.3
--- NOTE | 2022-06-22 02:50 | XRR_ITS ---
PROCEDURE INFORMATION: Exam: XR Chest Exam date and time: 06/22/2022 3:03 AM Age: 27 years old Clinical indication: Cough and fever and shortness of breath; Patient HX: Cough, congestion, SOB, and fever. TECHNIQUE: Imaging protocol: Radiologic exam of the chest. Views: 1 view. COMPARISON: CR XR chest 1V portable [id number] 02/26/2022 11:54 PM FINDINGS: Lungs: Unremarkable. No consolidation. Pleural spaces: Unremarkable. No pleural effusion. No pneumothorax. Heart/Mediastinum: Unremarkable. No cardiomegaly. Bones/joints: Unremarkable. XR/XR chest 1V portable [id number] IMPRESSION: No acute findings.
--- NOTE | 2022-06-22 02:53 | W.ED.HA ---
HPI - Headache General: Chief Complaint: Headache Stated Complaint: sore throat, congestion, SOB Time Seen by Provider: 06/22/22 02:44 Source: patient Mode of arrival: ambulatory Limitations: no limitations History of Present Illness: 27-year-old female states that over the last 3 days she has had cough congestion sore throat along with ear pain. She has had fevers as well. She denies any shortness of breath denies any vomiting or diarrhea. She denies any worsening improving factors. Associated symptoms: Deny chest pain, nausea, rash or vomiting Review of Systems Const: Reports: chills and body aches Eyes: Denies: blurry vision or eye discomfort ENMT: Reports: throat pain and ear or mastoid pain Card: Denies: chest pain Resp: Reports: non-productive cough GI: Denies: abdominal pain, nausea, vomiting or diarrhea : Denies: dysuria Musc: Denies: neck pain or back pain Skin/Breast: Denies: rash Neuro: Denies: headache(s) Psych: Denies: depression [place]/Lymph: Denies: easy bruising All/Imm: Denies: urticaria PFSH ED PFSH: Medical History Bipolar 1 disorder BMI 50.0-59.9, adult Hx of transfusion of whole blood Hypertension Laceration of left knee without complication No pertinent family history Surgical History No pertinent past surgical history Family History Mother Anemia Psychiatric illness bipolar Other Cancer Chronic kidney disease (CKD) Clotting disorder Dementia Diabetes Hyperlipidemia Hypertension Stroke Denies family history of CAD (coronary artery disease) Suicide Anesthesia complication Bleeding disorder Family history of premature coronary artery disease Lung disease Social History Smoking and tobacco status: current every day smoker cigarettes [ Other cigarette details: 2PPD x 1yr] Alcohol intake: never Desire information about alcohol rehabilitation?: No Desire information about substance/drug rehabilitation?: No Lives independently: Yes Female Reproductive History: Date of last menstrual period: 03/06/22 Physical Exam Const: COMMON NORMALS: no acute distress, patient oriented x3 and healthy appearing HENMT: COMMON NORMALS: normocephalic and atraumatic HEAD & SCALP: normocephalic and atraumatic Eye: COMMON NORMALS: Equal, round and reactive pupils present and EOMs intact bilaterally PUPIL: Yes Equal, round and reactive pupils present Neck/C-Spine: COMMON NORMALS: full ROM and supple Chest: COMMONS NORMALS: normal inspection of the chest and normal palpation of entire chest wall Resp: COMMON NORMALS: normal respiratory effort, No retractions, No use of accessory muscles and clear to auscultation bilaterally AUSCULTATION: clear to auscultation bilaterally Cardio: COMMON NORMALS: regular rhythm and No murmurs present (Cardio) RATE: tachycardic RHYTHM: regular rhythm GI: COMMON NORMALS: Normal to inspection, nondistended, normoactive bowel sounds present, Soft to palpation, non-tender and no masses PALPATION: Yes Soft to palpation Extremity: COMMON NORMALS: normal to inspection and full ROM Neuro: COMMON NORMALS: patient oriented x3, moves all extremities and no focal motor deficits Psych: COMMON NORMALS: mental status grossly normal, Normal thought process present and cooperative THOUGHT PROCESS: Normal thought process present Skin: COMMON NORMALS: no rashes or lesions noted and no wounds GENERAL SKIN EXAM: no rashes or lesions noted Course Vital Signs: Vital signs: Vital Signs Temperature 97.5 F L 06/22/22 02:41 Pulse Rate 108 H 06/22/22 03:26 Respiratory Rate 22 H 06/22/22 02:41 Blood Pressure 151/63 06/22/22 03:26 Pulse Oximetry 97 06/22/22 02:41 Oxygen Delivery Me thod 06/22/22 02:41 MDM - Headache Medical Decision Making Patient presents here with sore throat did test positive for strep she has no signs of abscess she is well-appearing here will start on penicillin. Lab Data Laboratory Results Influenza Type A Ag negative (Negative) 06/22/22 03:08 Influenza Type B Ag negative (Negative) 06/22/22 03:08 SARS-CoV-2 Ag (Rapid) negative (Negative) 06/22/22 03:08 Group A Strep Rapid Positive (Negative) H 06/22/22 03:07 Discharge Plan Discharge Patient Disposition: Home Clinical Impression: Strep throat Condition: Stable Prescriptions: New penicillin V potassium 500 mg tablet 500 mg PO Q6H 10 Days Qty: 40 0RF No Action cetirizine [Zyrtec] 10 mg tablet 10 mg PO DAILY PRN (Reason: allergy symptoms) Qty: 60 0RF fluticasone propionate [Flonase Allergy Relief] 50 mcg/actuation spray,suspension 1 spray intranasal DAILY PRN (Reason: nasal congestion) Qty: 16 0RF Rx Instructions: administer into each nostril ibuprofen 600 mg tablet 600 mg PO Q8H PRN (Reason: pain) Qty: 10 0RF albuterol sulfate 90 mcg/actuation HFA aerosol inhaler 2 puff INHALATION Q4H PRN (Reason: Shortness Of Breath) Flonase Allergy Relief 50 mcg/actuation spray,suspension 2 spray intranasal BEDTIME Rx Instructions: administer into each nostril metformin 1,000 mg tablet 1,000 mg PO BID Qty: 60 0RF Discharge Orders: Discharge ED (Routine); Ordered 06/22/22 Ordered By: Brian Rocha Referrals: Kavon Gaines MD [Primary Care Provider] - 1-3 days Discharge Diet: Advance as tolerated Discharge Activity: Resume usual activity Patient Instructions: Strep Throat (ED) Coding Level of Care Code ED Commercial Horticulture Instructor for Chg Fwd Exam Comprehensive
[2022-06-22] MEDS: ketorolac 30 mg/mL INJ IM (03:00)
[2022-06-22] MEDS: dexamethasone 10 mg/mL INJ IM (03:00)
[2022-06-22 03:26] VITALS: BP 151/63; PULSE 108
[2022-06-22 03:36] LABS: SARS Covid-2 Antigen negative (Negative)
[2022-06-22 03:37] LABS: Influenza A by IFA negative (Negative); Influenza B by IFA negative (Negative)
[2022-06-22 03:45] LABS: Rapid Strep A Test Positive (Negative)
[2022-06-22 03:54] VITALS: BP 163/72; PULSE 105; RESP 18; O2SAT 99
== END 2022-06-22 03:55 | disposition home or self-care (01) ==
PROVIDERS: Emergency Provider Emergency Medicine; PCP Family Medicine
DX: J02.0 Streptococcal pharyngitis (principal); Z79.84 Long term (current) use of oral hypoglycemic drugs; Z20.822 Contact with and (suspected) exposure to COVID-19; F17.210 Nicotine dependence, cigarettes, uncomplicated; I10 Essential (primary) hypertension
CPT/HCPCS: 71045; 87426; 87804; 87880; 96372; 99284; J1100; J1885

== ENCOUNTER 2022-07-06 14:55 | Emergency (ER) | payer OTHER, SELFPAY ==
[2022-07-06 15:01] VITALS: BP 159/101; PULSE 87; RESP 16; TEMP 36.2; O2SAT 98
--- NOTE | 2022-07-06 15:31 | W.ED.HA ---
Documented by User: HEAVENLY Avila 07/06/22 16:53 HPI - Headache General: Chief Complaint: Headache Stated Complaint: headache Time Seen by Provider: 07/06/22 15:17 History of Present Illness: Patient reports that she is in for headache/migraine. She reports that this feels very similar in characteristic to her previous migraines however it just will not go away. She reports it started last night about 6:00. She has tried conservative treatment. She denies any fever, chills, nausea, vomiting. She denies any recent head injury. She reports some photophobia Associated symptoms: Deny chest pain, fever(s), nausea or vomiting Review of Systems Const: Denies: fever(s), chills or body aches Eyes: Reports: photophobia; Denies: change in vision, blurry vision or blind spots Card: Denies: chest pain, palpitations or irregular heart rhythm Resp: Denies: dyspnea, productive cough or non-productive cough GI: Denies: abdominal pain, nausea or vomiting : Denies: flank pain, difficulty voiding or dysuria Neuro: Reports: headache(s); Denies: numbness in extremities, weakness in extremities, sensory changes or lack of coordination PFSH ED PFSH: Medical History Bipolar 1 disorder BMI 50.0-59.9, adult Hx of transfusion of whole blood Hypertension Laceration of left knee without complication No pertinent family history Surgical History No pertinent past surgical history Family History Mother Anemia Psychiatric illness bipolar Other Cancer Chronic kidney disease (CKD) Clotting disorder Dementia Diabetes Hyperlipidemia Hypertension Stroke Denies family history of CAD (coronary artery disease) Suicide Anesthesia complication Bleeding disorder Family history of premature coronary artery disease Lung disease Social History Smoking and tobacco status: current every day smoker cigarettes [ Other cigarette details: 2PPD x 1yr] Alcohol intake: never Desire information about alcohol rehabilitation?: No Desire information about substance/drug rehabilitation?: No Lives independently: Yes Female Reproductive History: Date of last menstrual period: 03/06/22 Physical Exam Const: GENERAL APPEARANCE: cooperative and well developed NUTRITIONAL APPEARANCE: obese morbidly obese ORIENTATION/CONSCIOUSNESS: Yes awake, Yes oriented to person, Yes oriented to place and Yes oriented to time HENMT: COMMON NORMALS: normocephalic, atraumatic, hearing grossly normal bilaterally, external ears normal, EAC's normal, TM's normal bilaterally, moist oral mucous membranes and oropharynx normal HEAD & SCALP: normocephalic and atraumatic EXTERNAL EAR: Yes external ears normal EXTERNAL AUDITORY CANAL: EAC's normal TYMPANIC MEMBRANE: TM's normal bilaterally Eye: COMMON NORMALS: Equal, round and reactive pupils present, EOMs intact bilaterally and conjunctivae normal CONJUNCTIVA: Yes conjunctivae normal PUPIL: Yes Equal, round and reactive pupils present Neck/C-Spine: COMMON NORMALS: full ROM, no lymphadenopathy, supple, no meningeal signs and no JVD Resp: COMMON NORMALS: normal respiratory effort, No use of accessory muscles and clear to auscultation bilaterally AUSCULTATION: clear to auscultation bilaterally Cardio: COMMON NORMALS: no JVD, regular rate, regular rhythm, S1 normal heart sound present, S2 normal heart sound present and No murmurs present (Cardio) RATE: regular rate RHYTHM: regular rhythm HEART SOUNDS: S1 normal heart sound present and S2 normal heart sound present GI: COMMON NORMALS: Normal to inspection, nondistended, normoactive bowel sounds present, Soft to palpation and non-tender PALPATION: Yes Soft to palpation : COMMON NORMALS: Yes no CVA tenderness BLADDER/KIDNEY EXAM: Yes no CVA tenderness Back/Pelvis: COMMON NORMALS: no CVA tenderness Neuro: SENSORIUM/ORIENTATION: Yes oriented to person, Yes oriented to place and Yes oriented to time MENINGEAL SIGNS: Yes no meningeal signs Course ED course: Nurse was able to obtain IV on patient after several attempts guided by ultrasound but patient said the IV felt funny and made him remove it. Change medication to IM medication to try and treat patient headache. Patient care signed out to Jesse Estrada as my shift is ending. Vital Signs: Vital signs: Vital Signs Temperature 97.1 F L 07/06/22 15:01 Pulse Rate 87 07/06/22 15:01 Respiratory Rate 16 07/06/22 15:01 Blood Pressure 159/101 07/06/22 15:01 Pulse Oximetry 98 07/06/22 15:01 Oxygen Delivery Me thod 07/06/22 15:01 MDM - Headache Lab Data 07/06/22 16:35 07/06/22 16:[address] 07/06/22 18:20 IMPRESSION: No acute intracranial abnormality. Laboratory Results WBC 7.7 10^3/uL (4.0-10.0) 07/06/22 16:35 RBC 5.67 10^6/uL (4.1-5.3) H 07/06/22 16:35 Hgb 14.7 g/dL (11.5-15.3) 07/06/22 16:35 Hct 45.6 % (37.0-47.0) 07/06/22 16:35 MCV 80.4 fl (81-99) L 07/06/22 16:35 MCH 25.9 pg (28.0-34.0) L 07/06/22 16:35 MCHC 32.2 g/dL (30.0-36.0) 07/06/22 16:35 RDW 13.2 % (12.1-15.1) 07/06/22 16:35 Plt Count 294 10^3/cmm (130-400) 07/06/22 16:35 MPV 10.3 fL (7.4-10.4) 07/06/22 16:35 Neut % (Auto) 61.8 % 07/06/22 16:35 Lymph % (Auto) 25.9 % 07/06/22 16:35 [place] % (Auto) 5.2 % 07/06/22 16:35 Eos % (Auto) 6.0 % 07/06/22 16:35 Baso % (Auto) 0.7 % 07/06/22 16:35 Neut # (Auto) 4.73 10^3/uL (1.8-7.7) 07/06/22 16:35 Lymph # (Auto) 2.0 10^3/uL (0.8-4.8) 07/06/22 16:35 [place] # (Auto) 0.4 10^3/uL (0.2-0.9) 07/06/22 16:35 Eos # (Auto) 0.5 10^3/uL (0.0-0.8) 07/06/22 16:35 Baso # (Auto) 0.1 10^3/uL (0.0-0.1) 07/06/22 16:35 Nucleated RBC % (auto) 0 % 07/06/22 16:35 Nucleated RBCs # 0.0 /100WBC 07/06/22 16:35 Sodium 137 mmol/L (136-145) 07/06/22 16:35 Potassium 3.9 mmol/L (3.5-5.1) 07/06/22 16:35 Chloride 101 mmol/L (98-107) 07/06/22 16:35 Carbon Dioxide 26 mmol/L (22-29) 07/06/22 16:35 Anion Gap 13.9 (5-19) 07/06/22 16:35 BUN 8 mg/dL (6-20) 07/06/22 16:35 Creatinine 0.3 mg/dL (0.5-0.9) L 07/06/22 16:35 GFR Calculation 268.9 mL/min (90-130) H 07/06/22 16:35 Glucose 131 mg/dL (65-115) H 07/06/22 16:35 Calculated Osmolality 284 mOsm/kg (285-295) L 07/06/22 16:35 Calcium 9.5 mg/dL (8.5-10.5) 07/06/22 16:35 Total Bilirubin 0.3 mg/dL (0.15-1.2) 07/06/22 16:35 AST 20 U/L (0-32) 07/06/22 16:35 ALT 32 U/L (0-33) 07/06/22 16:35 Alkaline Phosphatase 80 U/L (35-105) 07/06/22 16:35 Total Protein 8.0 g/dL (6.6-8.7) 07/06/22 16:35 Albumin 4.1 g/dL (3.5-5.2) 07/06/22 16:35 Globulin 3.9 g/dL (1.3-4.6) 07/06/22 16:35 Urine HCG, Qual Negative (Negative) 07/06/22 15:48 Discharge Plan Discharge Patient Disposition: Home Clinical Impression: Recurrent headache Headache Qualifiers: Headache type: unspecified Headache chronicity pattern: unspecified pattern Intractability: not intractable Qualified Code(s): R51.9 - Headache, unspecified Condition: Stable Prescriptions: No Action cetirizine [Zyrtec] 10 mg tablet 10 mg PO DAILY PRN (Reason: allergy symptoms) Qty: 60 0RF fluticasone propionate [Flonase Allergy Relief] 50 mcg/actuation spray,suspension 1 spray intranasal DAILY PRN (Reason: nasal congestion) Qty: 16 0RF Rx Instructions: administer into each nostril ibuprofen 600 mg tablet 600 mg PO Q8H PRN (Reason: pain) Qty: 10 0RF albuterol sulfate 90 mcg/actuation HFA aerosol inhaler 2 puff INHALATION Q4H PRN (Reason: Shortness Of Breath) Flonase Allergy Relief 50 mcg/actuation spray,suspension 2 spray intranasal BEDTIME Rx Instructions: administer into each nostril metformin 1,000 mg tablet 1,000 mg PO BID Qty: 60 0RF Discharge Orders: Discharge ED (Routine); Ordered 07/06/22 Ordered By: Umer Estrada Referrals: Kavon Gaines MD [Primary Care Provider] - Discharge Diet: Usual diet Discharge Activity: Increase activity as tolerated Patient Instructions: General Headache (ED) Activity Restrictions/Additional Instructions: Follow-up with primary care for further instructions regarding hypertension and headaches. Case management will contact you again in regards to follow-up appointment with neurology for further investigation of your recurring headaches. Return to ER for new concerns or worsening symptoms. Stand Alone Forms: Work/School Release Sign Out Sign Out Data: Patient Sign Out occurred on 07/06/22 at 17:06. Patient's care was discussed, and care was transferred from to Umer Estrada. Coding Level of Care Code ED Search Optimization Analyst for Chg Fwd Exam Comprehensive Documented by User: MELISSA Fraga 07/06/22 19:05 HPI - Headache General: Chief Complaint: Headache Stated Complaint: headache Time Seen by Provider: 07/06/22 15:17 PFS ED PFSH: Medical History Bipolar 1 disorder BMI 50.0-59.9, adult Hx of transfusion of whole blood Hypertension Laceration of left knee without complication No pertinent family history Surgical History No pertinent past surgical history Family History Mother Anemia Psychiatric illness bipolar Other Cancer Chronic kidney disease (CKD) Clotting disorder Dementia Diabetes Hyperlipidemia Hypertension Stroke Denies family history of CAD (coronary artery disease) Suicide Anesthesia complication Bleeding disorder Family history of premature coronary artery disease Lung disease Social History Smoking and tobacco status: current every day smoker cigarettes [ Other cigarette details: 2PPD x 1yr] Alcohol intake: never Desire information about alcohol rehabilitation?: No Desire information about substance/drug rehabilitation?: No Lives independently: Yes Course Vital Signs: Vital signs: Vital Signs Temperature 97.1 F L 07/06/22 15:01 Pulse Rate 87 07/06/22 15:01 Respiratory Rate 16 07/06/22 15:01 Blood Pressure 159/101 07/06/22 15:01 Pulse Oximetry 98 07/06/22 15:01 Oxygen Delivery Me thod 07/06/22 15:01 MDM - Headache Medical Decision Making 27-year-old female comes in today for complaints of frontal headache. Patient appears nontoxic. Patient has a history of recurrent headaches. Patient reports that this headache is different and that is in her frontal area with significant pressure and pain. No focal neural deficits are noted. Vital signs are normal except for some elevated blood pressure. Differential diagnosis includes but not limited to sinusitis, tension headache, hypertension uncontrolled. Laboratory values were unremarkable. Patient was treated with ketorolac 30 mg IM, 60 mg orphenadrine IM, and 25 mg of Phenergan IM. Patient reports improvement of tension but continued to have frontal sinus pain. CT of the head indicated no abnormality. Reviewed exam with patient with recommendations for treatment and follow-up with primary care for elevated blood pressure, and neurology for recurrent headaches. Patient reported understanding agreed to plan. Patient did have improvement in symptoms but no full resolution of headache. Lab Data 07/06/22 16:35 07/06/22 16:[address] 07/06/22 18:20 IMPRESSION: No acute intracranial abnormality. Laboratory Results WBC 7.7 10^3/uL (4.0-10.0) 07/06/22 16:35 RBC 5.67 10^6/uL (4.1-5.3) H 07/06/22 16:35 Hgb 14.7 g/dL (11.5-15.3) 07/06/22 16:35 Hct 45.6 % (37.0-47.0) 07/06/22 16:35 MCV 80.4 fl (81-99) L 07/06/22 16:35 MCH 25.9 pg (28.0-34.0) L 07/06/22 16:35 MCHC 32.2 g/dL (30.0-36.0) 07/06/22 16:35 RDW 13.2 % (12.1-15.1) 07/06/22 16:35 Plt Count 294 10^3/cmm (130-400) 07/06/22 16:35 MPV 10.3 fL (7.4-10.4) 07/06/22 16:35 Neut % (Auto) 61.8 % 07/06/22 16:35 Lymph % (Auto) 25.9 % 07/06/22 16:35 [place] % (Auto) 5.2 % 07/06/22 16:35 Eos % (Auto) 6.0 % 07/06/22 16:35 Baso % (Auto) 0.7 % 07/06/22 16:35 Neut # (Auto) 4.73 10^3/uL (1.8-7.7) 07/06/22 16:35 Lymph # (Auto) 2.0 10^3/uL (0.8-4.8) 07/06/22 16:35 [place] # (Auto) 0.4 10^3/uL (0.2-0.9) 07/06/22 16:35 Eos # (Auto) 0.5 10^3/uL (0.0-0.8) 07/06/22 16:35 Baso # (Auto) 0.1 10^3/uL (0.0-0.1) 07/06/22 16:35 Nucleated RBC % (auto) 0 % 07/06/22 16:35 Nucleated RBCs # 0.0 /100WBC 07/06/22 16:35 Sodium 137 mmol/L (136-145) 07/06/22 16:35 Potassium 3.9 mmol/L (3.5-5.1) 07/06/22 16:35 Chloride 101 mmol/L (98-107) 07/06/22 16:35 Carbon Dioxide 26 mmol/L (22-29) 07/06/22 16:35 Anion Gap 13.9 (5-19) 07/06/22 16:35 BUN 8 mg/dL (6-20) 07/06/22 16:35 Creatinine 0.3 mg/dL (0.5-0.9) L 07/06/22 16:35 GFR Calculation 268.9 mL/min (90-130) H 07/06/22 16:35 Glucose 131 mg/dL (65-115) H 07/06/22 16:35 Calculated Osmolality 284 mOsm/kg (285-295) L 07/06/22 16:35 Calcium 9.5 mg/dL (8.5-10.5) 07/06/22 16:35 Total Bilirubin 0.3 mg/dL (0.15-1.2) 07/06/22 16:35 AST 20 U/L (0-32) 07/06/22 16:35 ALT 32 U/L (0-33) 07/06/22 16:35 Alkaline Phosphatase 80 U/L (35-105) 07/06/22 16:35 Total Protein 8.0 g/dL (6.6-8.7) 07/06/22 16:35 Albumin 4.1 g/dL (3.5-5.2) 07/06/22 16:35 Globulin 3.9 g/dL (1.3-4.6) 07/06/22 16:35 Urine HCG, Qual Negative (Negative) 07/06/22 15:48 Discharge Plan Discharge Patient Disposition: Home Clinical Impression: Recurrent headache Headache Qualifiers: Headache type: unspecified Headache chronicity pattern: unspecified pattern Intractability: not intractable Qualified Code(s): R51.9 - Headache, unspecified Condition: Stable Prescriptions: No Action cetirizine [Zyrtec] 10 mg tablet 10 mg PO DAILY PRN (Reason: allergy symptoms) Qty: 60 0RF fluticasone propionate [Flonase Allergy Relief] 50 mcg/actuation spray,suspension 1 spray intranasal DAILY PRN (Reason: nasal congestion) Qty: 16 0RF Rx Instructions: administer into each nostril ibuprofen 600 mg tablet 600 mg PO Q8H PRN (Reason: pain) Qty: 10 0RF albuterol sulfate 90 mcg/actuation HFA aerosol inhaler 2 puff INHALATION Q4H PRN (Reason: Shortness Of Breath) Flonase Allergy Relief 50 mcg/actuation spray,suspension 2 spray intranasal BEDTIME Rx Instructions: administer into each nostril metformin 1,000 mg tablet 1,000 mg PO BID Qty: 60 0RF Discharge Orders: Discharge ED (Routine); Ordered 07/06/22 Ordered By: Umer Estrada Referrals: Kavon Gaines MD [Primary Care Provider] - Discharge Diet: Usual diet Discharge Activity: Increase activity as tolerated Patient Instructions: General Headache (ED) Activity Restrictions/Additional Instructions: Follow-up with primary care for further instructions regarding hypertension and headaches. Case management will contact you again in regards to follow-up appointment with neurology for further investigation of your recurring headaches. Return to ER for new concerns or worsening symptoms. Stand Alone Forms: Work/School Release Sign Out Sign Out Data: Patient Sign Out occurred on 07/06/22 at 17:06. Patient's care was discussed, and care was transferred from to Umer Estrada. Coding Level of Care Code ED Search Optimization Analyst for Kimmie Fwsolomon Exam Comprehensive
[2022-07-06] MEDS: sodium chloride 0.9% 1,000 ML 999 ML IV (16:31)
[2022-07-06 17:02] LABS: Basophils # 0.1 10^3/uL (0.0-0.1); Basophils % 0.7 %; Eosinophils # 0.5 10^3/uL (0.0-0.8); Hematocrit 45.6 % (37.0-47.0); Hemoglobin 14.7 g/dL (11.5-15.3); Lymphocytes % 25.9 %; Mean Corpuscular HGB Conc 32.2 g/dL (30.0-36.0); Mean Corpuscular Hemoglobin 25.9 pg (28.0-34.0); Mean Corpuscular Volume 80.4 fl (81-99); Mean Platelet Volume 10.3 fL (7.4-10.4); Monocytes # 0.4 10^3/uL (0.2-0.9); Monocytes % 5.2 %; Neutrophils # 4.73 10^3/uL (1.8-7.7); Neutrophils % 61.8 %; Nucleated Red Blood Cells % 0 %; Platelet Count 294 10^3/cmm (130-400); Red Blood Count 5.67 10^6/uL (4.1-5.3); Red Cell Distribution Width 13.2 % (12.1-15.1); White Blood Count 7.7 10^3/uL (4.0-10.0)
[2022-07-06 17:19] LABS: Alanine Aminotransferase 32 U/L (0-33); Albumin Level 4.1 g/dL (3.5-5.2); Alkaline Phosphatase 80 U/L (35-105); Anion Gap 13.9 (5-19); Aspartate Amino Transferase 20 U/L (0-32); Blood Urea Nitrogen 8 mg/dL (6-20); Calcium 9.5 mg/dL (8.5-10.5); Carbon Dioxide 26 mmol/L (22-29); Chloride 101 mmol/L (98-107); Globulin 3.9 g/dL (1.3-4.6); Glomerular Filtration Rate 268.9 mL/min (90-130); Glucose 131 mg/dL (65-115); Osmolality Calculated 284 mOsm/kg (285-295); Potassium 3.9 mmol/L (3.5-5.1); Sodium 137 mmol/L (136-145); Total Bilirubin 0.3 mg/dL (0.15-1.2)
[2022-07-06] MEDS: ketorolac 30 mg/mL INJ IM (17:22)
[2022-07-06] MEDS: promethazine 25 mg/mL SDV 1 mL IM (17:22)
[2022-07-06] MEDS: orphenadrine 30 mg/mL Inj 2 mL 60 MG IM (17:22)
--- NOTE | 2022-07-06 18:20 | CTR_ITS ---
PROCEDURE INFORMATION: Exam: CT Head Without Contrast Exam date and time: 07/06/2022 6:31 PM Age: 27 years old Clinical indication: Pain; Headache not specified; Additional info: Frontal headache TECHNIQUE: Imaging protocol: Computed tomography of the head without contrast. Radiation optimization: All CT scans at this facility use at least one of these dose optimization techniques: automated exposure control; mA and/or kV adjustment per patient size (includes targeted exams where dose is matched to clinical indication); or iterative reconstruction. COMPARISON: No relevant prior studies available. RADIATION DOSE METRICS: Total DLP (mGy-cm): 1029.68 FINDINGS: Brain: Normal. No hemorrhage. Unremarkable white matter. No mass effect. Cerebral ventricles: No ventriculomegaly. Paranasal sinuses: Visualized sinuses are unremarkable. No fluid levels. Mastoid air cells: Visualized mastoid air cells are well aerated. Bones/joints: Unremarkable. No acute fracture. Soft tissues: Unremarkable. CT/CT head wo con* [id number] IMPRESSION: No acute intracranial abnormality.
--- NOTE | 2022-07-07 09:16 | DCPLANNER ---
Addendum entered by Casandra Cool 08/09/22 07:55: Patient had a follow up appointment scheduled with neurology - patient did attend appointment. Addendum entered by Casandra Cool 07/12/22 13:01: Patient has a follow up appointment scheduled for Sunday, July 19, 2022 at 12:30 with Erasto Roman at neurology. Clinic will call patient with appointment information. Original Note: residential leasing manager had message to schedule a follow up appointment for patient with neurology. residential leasing manager sent patients information to the front office staff at neurology. Patients information will be printed and reviewed. Clinic will call patient with appointment information.
== END 2022-07-06 19:13 | disposition home or self-care (01) ==
PROVIDERS: Nurse Practitioner Family; Emergency Provider Nurse Practitioner Family; PCP Family Medicine
DX: R51.9 Headache, unspecified (principal); I10 Essential (primary) hypertension; F17.210 Nicotine dependence, cigarettes, uncomplicated
CPT/HCPCS: 70450; 80053; 81025; 85025; 96360; 96372; 99285; J1885; J2360; J2550; J7030

== ENCOUNTER → 2022-07-12 14:49 | Outpatient (BNVA) | payer OTHER, SELFPAY | PROVIDERS: PCP Family Medicine; Visit Provider Emergency Medicine | DX: K52.9 Noninfective gastroenteritis and colitis, unspecified (principal) | CPT/HCPCS: 87506 ==

== ENCOUNTER 2022-07-15 02:20 | Emergency (ER) | payer OTHER, SELFPAY ==
[2022-07-15 02:46] VITALS: BP 158/84; PULSE 99; RESP 12; TEMP 37.1; O2SAT 98; BMI 47.0
--- NOTE | 2022-07-15 02:55 | PC.NURSE ---
I walked into the room to see the patient with Dr. Rocha. Patient states she thinks she has some fluid on her brain because when she bends over she gets dizzy and has been having headaches. Dr. Rocha explained to her that she just recently had a scan on her brain that didn't show any fluid on her brain but he would give her some medications for her headaches. Patient refused the medications and then requested a spinal tap . Dr. Rocha told her there was no reason to do an emergent lumbar puncture on her at this time. Patient became agitated with Dr. Rocha. Dr. Rocha tried to explain to the patient that he can't just do an invasive procedure without reason and there is not a reason to perform an emergent lumbar puncture on her at this time. Patient then stated if he wasn't going to do a lumbar puncture on her then she was just going to leave. Patient requested give me whatever I need to sign so I can leave. Patient was given an AMA form by Nurse, Meeta Perez RN. Patient signed the AMA form, took a picture of it with her cell phone, and then handed it back to the nurse and walked out of the ER.
--- NOTE | 2022-07-15 02:59 | ED_ITS ---
HPI - Headache General: Chief Complaint: Headache Stated Complaint: head pain, headache Time Seen by Provider: 07/15/22 02:53 Source: patient Mode of arrival: ambulatory Limitations: no limitations History of Present Illness: 27-year-old female has history of chronic headache she been seen here multiple times for headache she states that she had a headache over the last 2 to 3 days states when she bends over she has some slight dizziness she denies any visual complaints. Denies being low severe headache of her life denies any fevers. Associated symptoms: Deny chest pain, fever(s), nausea, rash or vomiting Review of Systems Const: Denies: fever(s), chills, body aches or change in appetite Eyes: Denies: blurry vision or eye discomfort ENMT: Denies: throat pain or dental pain Card: Denies: chest pain Resp: Denies: dyspnea GI: Denies: abdominal pain, nausea, vomiting or diarrhea : Denies: dysuria Musc: Denies: neck pain or back pain Skin/Breast: Denies: rash Neuro: Reports: headache(s) Psych: Denies: depression [place]/Lymph: Denies: easy bruising All/Imm: Denies: urticaria PFSH ED PFSH: Medical History Bipolar 1 disorder BMI 50.0-59.9, adult Hx of transfusion of whole blood Hypertension Laceration of left knee without complication No pertinent family history Surgical History No pertinent past surgical history Family History Mother Anemia Psychiatric illness bipolar Other Cancer Chronic kidney disease (CKD) Clotting disorder Dementia Diabetes Hyperlipidemia Hypertension Stroke Denies family history of CAD (coronary artery disease) Suicide Anesthesia complication Bleeding disorder Family history of premature coronary artery disease Lung disease Social History Smoking and tobacco status: current every day smoker cigarettes [ Other cigarette details: 2PPD x 1yr] Alcohol intake: never Desire information about alcohol rehabilitation?: No Desire information about substance/drug rehabilitation?: No Lives independently: Yes Female Reproductive History: Date of last menstrual period: 03/06/22 Physical Exam Const: COMMON NORMALS: no acute distress, patient oriented x3 and healthy appearing HENMT: COMMON NORMALS: normocephalic and atraumatic HEAD & SCALP: normocephalic and atraumatic Eye: COMMON NORMALS: conjunctivae normal CONJUNCTIVA: Yes conjunctivae normal Neck/C-Spine: COMMON NORMALS: supple Chest: COMMONS NORMALS: normal palpation of entire chest wall Resp: COMMON NORMALS: normal respiratory effort Cardio: COMMON NORMALS: regular rate and No murmurs present (Cardio) RATE: regular rate GI: INSPECTION: Yes normal to inspection Extremity: COMMON NORMALS: normal to inspection and full ROM Neuro: COMMON NORMALS: patient oriented x3, moves all extremities and no focal motor deficits Psych: COMMON NORMALS: mental status grossly normal, Normal thought process present and cooperative THOUGHT PROCESS: Normal thought process present Skin: COMMON NORMALS: no rashes or lesions noted and no wounds GENERAL SKIN EXAM: no rashes or lesions noted Course Vital Signs: Vital signs: Vital Signs Temperature 98.7 F 07/15/22 02:46 Pulse Rate 99 07/15/22 02:46 Respiratory Rate 12 07/15/22 02:46 Blood Pressure 158/84 07/15/22 02:46 Pulse Oximetry 98 07/15/22 02:46 MDM - Headache Medical Decision Making Patient presents here with a headache after telling her story she told me that she needed a lumbar puncture informed her I like to give her some IV medicine for her headache also get some blood work she refused she states did not want any meds I just want a lumbar puncture needle lumbar puncture currently. I informed her that we need to check other things out first before we did a lumbar puncture at this time patient became angry and walked out of the room. Discharge Plan Discharge Patient Disposition: Left Against Medical Advice Clinical Impression: Headache Condition: Stable Prescriptions: No Action amoxicillin 875 mg tablet 875 mg PO BID 7 Days Qty: 14 0RF cetirizine [Zyrtec] 10 mg tablet 10 mg PO DAILY PRN (Reason: allergy symptoms) Qty: 60 0RF fluticasone propionate [Flonase Allergy Relief] 50 mcg/actuation spray,suspension 1 spray intranasal DAILY PRN (Reason: nasal congestion) Qty: 16 0RF Rx Instructions: administer into each nostril ibuprofen 600 mg tablet 600 mg PO Q8H PRN (Reason: pain) Qty: 10 0RF albuterol sulfate 90 mcg/actuation HFA aerosol inhaler 2 puff INHALATION Q4H PRN (Reason: Shortness Of Breath) metformin 1,000 mg tablet 1,000 mg PO BID Qty: 60 0RF Referrals: Kavon Gaines MD [Primary Care Provider] - Stand Alone Forms: Against Medical Advice Coding Level of Care Code ED Dental Secretary for Kimmie Hedrick
== END 2022-07-15 03:00 | disposition left against medical advice (07) ==
PROVIDERS: Emergency Provider Emergency Medicine; PCP Family Medicine
DX: R51.9 Headache, unspecified (principal); Z53.21 Procedure and treatment not carried out due to patient leaving prior to being seen by health care provider; I10 Essential (primary) hypertension; F17.210 Nicotine dependence, cigarettes, uncomplicated

== ENCOUNTER 2022-07-29 21:25 | Emergency (ER) | payer OTHER, SELFPAY ==
[2022-07-29 21:32] VITALS: BP 148/83; PULSE 86; RESP 20; TEMP 37; O2SAT 97; BMI 47.0
[2022-07-30 00:17] VITALS: BP 162/94; RESP 16; O2SAT 99
--- NOTE | 2022-07-30 01:17 | PC.NURSE ---
Pt refused to stay in room on monitor. When asked to go back into her room got angry and wanted to leave. When nurse presented the pt with the AMA form to sign pt became more belligerent. Pt refused to sign the AMA form stating she knows her rights and she does not have to sign it. When pt was informed she would not be allowed to stay in another pt's room after AMA'ing she become aggressive and made the other pt AMA as well because that was her ride home.
== END 2022-07-30 00:53 | disposition left against medical advice (07) ==
PROVIDERS: Emergency Provider Emergency Medicine; PCP Family Medicine
DX: Z53.21 Procedure and treatment not carried out due to patient leaving prior to being seen by health care provider (principal)

== ENCOUNTER → 2022-08-03 15:20 | Outpatient (BNVA) | payer OTHER, SELFPAY | PROVIDERS: PCP Family Medicine; Visit Provider Family Medicine | DX: G97.1 Other reaction to spinal and lumbar puncture (principal); Z32.00 Encounter for pregnancy test, result unknown | CPT/HCPCS: 81025 ==

== ENCOUNTER → 2022-09-09 13:06 | Outpatient (BNVA) | payer OTHER, SELFPAY | PROVIDERS: PCP Family Medicine; Visit Provider Registered Nurse Neonatal Intensive Care | DX: Z34.90 Encounter for supervision of normal pregnancy, unspecified, unspecified trimester (principal); Z3A.01 Less than 8 weeks gestation of pregnancy | CPT/HCPCS: 81025 ==

== ENCOUNTER 2022-09-14 08:48 | Emergency (ER) | payer OTHER, SELFPAY ==
[2022-09-14 09:16] VITALS: BP 151/70; PULSE 92; RESP 16; O2SAT 98; BMI 46.0
--- NOTE | 2022-09-14 09:39 | XRR_ITS ---
PROCEDURE INFORMATION: Exam: XR Chest Exam date and time: 09/14/2022 9:56 AM Age: 27 years old Clinical indication: Shortness of breath TECHNIQUE: Imaging protocol: Radiologic exam of the chest. Views: 1 view. COMPARISON: CR XR chest 1V portable [id number] 06/22/2022 3:03 AM FINDINGS: Lungs: Lungs are clear. Pleural spaces: There is no pleural effusion or pneumothorax. Heart/Mediastinum: Cardiomediastinal contours are unremarkable. Bones/joints: Bones are unremarkable. XR/XR chest 1V portable [id number] IMPRESSION: No acute findings.
--- NOTE | 2022-09-14 09:39 | ECG_ITS ---
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 Measurements Intervals [place] Rate: 83 P: 36 [place]: 156 QRS: 66 QRSD: 98 T: 14 QT: 364 QTc: 430 Interpretive Statements SINUS RHYTHM NONSPECIFIC T-WAVE ABNORMALITY No previous ECG available for comparison Electronically Signed On 09-14-2022 22:48:38 CDT by Elvia Márquez M.D. [id number]
--- NOTE | 2022-09-14 09:41 | ED_ITS ---
HPI - Extremity Problem General: Chief complaint: Extremity Problem,Nontraumatic Stated complaint: Numbness in hands and arms Time Seen by Provider: 09/14/22 09:22 History of Present Illness: Patient is a 27-year-old female comes to the ED with shortness of breath, chest tightness and right hand numbness/tingling. Patient is currently 5 weeks . She denies any related complaints and denies any vaginal bleeding. This morning at 3 AM she woke up and her right hand was numb and tingling. Sensation radiates up into her right elbow as well. She also endorses having some pain that shoots up to her right elbow. Her shortness of breath and chest pain started approximately a week ago. Shortness of breath worsens when laying flat. She describes the chest pain as a chest heaviness and pressure that started at rest. Denies any fevers, vomiting, abdominal pain, bladder or bowel symptoms.. Associated symptoms: Reports chest pain; Deny fever(s) or rash Review of Systems Const: Denies: fever(s), chills or fatigue Eyes: Denies: change in vision or eye discomfort ENMT: Denies: throat pain, odynophagia, nasal discharge or nasal congestion Card: Reports: chest pain; Denies: palpitations, edema, swelling of feet/ankles, dyspnea on exertion or orthopnea Resp: Reports: dyspnea; Denies: productive cough or non-productive cough GI: Denies: abdominal pain, nausea, vomiting, diarrhea, constipation or hematochezia : Denies: flank pain, dysuria or hematuria Musc: Reports: extremity pain (Pain and numbness and tingling to right hand, wrist and it radiates up into); Denies: neck pain, back pain or extremity swelling Skin/Breast: Denies: rash or new lesions Neuro: Denies: headache(s), numbness in extremities (Numbness to) or weakness in extremities PFS ED PFSH: Medical History Bipolar 1 disorder BMI 50.0-59.9, adult Hx of transfusion of whole blood Hypertension Laceration of left knee without complication No pertinent family history Surgical History No pertinent past surgical history Family History Mother Anemia Psychiatric illness bipolar Other Cancer Chronic kidney disease (CKD) Clotting disorder Dementia Diabetes Hyperlipidemia Hypertension Stroke Denies family history of CAD (coronary artery disease) Suicide Anesthesia complication Bleeding disorder Family history of premature coronary artery disease Lung disease Social History Smoking and tobacco status: current every day smoker cigarettes Packs smoked per day: 1 [ Other cigarette details: 2PPD x 1yr] Alcohol intake: never Desire information about alcohol rehabilitation?: No Desire information about substance/drug rehabilitation?: No Lives independently: Yes Marital status: Current occupational status: employed Current occupation: [employer] Special molly needs: No Agree to transfusion: Yes Physical Exam Narrative: EXAM NARRATIVE: Patient is laying back on exam bed and in no acute distress or pain. She appears to have no trouble breathing. Const: COMMON NORMALS: patient oriented x3 HENMT: COMMON NORMALS: normocephalic HEAD & SCALP: normocephalic MOUTH: Normal oral and palatal mucosa present THROAT: posterior oropharynx normal and uvula midline Neck/C-Spine: COMMON NORMALS: supple GENERAL: Yes normal visual inspection Resp: COMMON NORMALS: normal respiratory effort, No retractions, No use of accessory muscles and clear to auscultation bilaterally AUSCULTATION: clear to auscultation bilaterally Cardio: COMMON NORMALS: regular rate, regular rhythm, S1 normal heart sound pr esent, S2 normal heart sound present, No gallops present (Cardio), No clicks present (Cardio), No murmurs present (Cardio) and Peripheral pulses 2+ throughout RATE: regular rate RHYTHM: regular rhythm HEART SOUNDS: S1 n ormal heart sound present and S2 normal heart sound present PERIPHERAL PULSES: Peripheral pulses 2+ throughout GI: COMMON NORMALS: Normal to inspection, nondistended, normoactive bowel sounds present, Soft to palpation, non-tender and no masses PALPATION: Yes Soft to palpation : COMMON NORMALS: Yes no CVA tenderness BLADDER/KIDNEY EXAM: Yes no CVA tenderness Back/Pelvis: COMMON NORMALS: no CVA tenderness Extremity: COMMON NORMALS: normal to inspection RIGHT UPPER EXTREMITY: Yes wrist Right wrist: Yes special tests Right wrist special tests: Phalen's test: Positive (Right wrist) Neuro: COMMON NORMALS: patient oriented x3 GAIT: Yes Normal gait present Skin: GENERAL SKIN EXAM: dry skin Course Vital Signs: Vital signs: Vital Signs Pulse Rate 105 H 09/14/22 11:18 Respiratory Rate 16 09/14/22 11:18 Blood Pressure 159/71 09/14/22 10:19 Pulse Oximetry 98 09/14/22 11:18 Oxygen Delivery Me thod 09/14/22 09:16 MDM - Extremity (Nontraumatic) Medical Decision Making Patient is a 27-year-old female comes to the ED with shortness of breath, chest tightness and right hand numbness/tingling. Patient is currently 5 weeks . She denies any related complaints and denies any vaginal b leeding. This morning at 3 AM she woke up and her right hand was numb and tingling. Sensation radiates up into her right elbow as well. She also endorses having some pain that shoots up to her right elbow. Her shortness of breath and chest pain started approximately a week ago. Shortness of breath worsens when laying flat. She describes the chest pain as a chest heaviness and pressure that started at rest. Denies any fevers, vomiting, abdominal pain, bladder or bowel symptoms. Vitals are stable. Patient has positive Phalen's test on right wrist. Rest of exam of patient is benign. Labs are all unremarkable. Chest x-ray shows no acute findings. Troponin negative. EKG showed no acute findings. Patient diagnosed with atypical chest pain and mild right carpal tunnel syndrome. 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 Return to ED precautions given. Patient understood and agreed with plan. Lab Data I reviewed the patient's lab results. 09/14/22 10:05 09/14/22 10:05 Radiology Impressions Chest X-Ray 09/14/22 09:39 IMPRESSION: No acute findings. Laboratory Results WBC 10.2 10^3/uL (4.0-10.0) H 09/14/22 10:05 RBC 5.29 10^6/uL (4.1-5.3) 09/14/22 10:05 Hgb 14.0 g/dL (11.5-15.3) 09/14/22 10:05 Hct 42.8 % (37.0-47.0) 09/14/22 10:05 MCV 80.9 fl (81-99) L 09/14/22 10:05 MCH 26.5 pg (28.0-34.0) L 09/14/22 10:05 MCHC 32.7 g/dL (30.0-36.0) 09/14/22 10:05 RDW 13.1 % (12.1-15.1) 09/14/22 10:05 Plt Count 290 10^3/cmm (130-400) 09/14/22 10:05 MPV 10.0 fL (7.4-10.4) 09/14/22 10:05 Neut % (Auto) 70.0 % 09/14/22 10:05 Lymph % (Auto) 21.0 % 09/14/22 10:05 [place] % (Auto) 4.8 % 09/14/22 10:05 Eos % (Auto) 3.1 % 09/14/22 10:05 Baso % (Auto) 0.6 % 09/14/22 10:05 Neut # (Auto) 7.12 10^3/uL (1.8-7.7) 09/14/22 10:05 Lymph # (Auto) 2.1 10^3/uL (0.8-4.8) 09/14/22 10:05 [place]duff[place] # (Auto) 0.5 10^3/uL (0.2-0.9) 09/14/22 10:05 Eos # (Auto) 0.3 10^3/uL (0.0-0.8) 09/14/22 10:05 Baso # (Auto) 0.1 10^3/uL (0.0-0.1) 09/14/22 10:05 Nucleated RBC % (auto) 0 % 09/14/22 10:05 Nucleated RBCs # 0.0 /100WBC 09/14/22 10:05 Sodium 136 mmol/L (136-145) 09/14/22 10:05 Potassium 3.9 mmol/L (3.5-5.1) 09/14/22 10:05 Chloride 103 mmol/L (98-107) 09/14/22 10:05 Carbon Dioxide 21 mmol/L (22-29) L 09/14/22 10:05 Anion Gap 15.9 (5-19) 09/14/22 10:05 BUN 9 mg/dL (6-20) 09/14/22 10:05 Creatinine 0.4 mg/dL (0.5-0.9) L 09/14/22 10:05 GFR Calculation 192.9 mL/min (90-130) H 09/14/22 10:05 Glucose 160 mg/dL (65-115) H 09/14/22 10:05 Calculated Osmolality 284 mOsm/kg (285-295) L 09/14/22 10:05 Calcium 8.6 mg/dL (8.5-10.5) 09/14/22 10:05 Total Bilirubin 0.3 mg/dL (0.15-1.2) 09/14/22 10:05 AST 18 U/L (0-32) 09/14/22 10:05 ALT 22 U/L (0-33) 09/14/22 10:05 Alkaline Phosphatase 62 U/L (35-105) 09/14/22 10:05 Troponin T Gen 5 ng/L 6 ng/L (0-10) 09/14/22 10:05 Total Protein 7.4 g/dL (6.6-8.7) 09/14/22 10:05 Albumin 3.8 g/dL (3.5-5.2) 09/14/22 10:05 Globulin 3.6 g/dL (1.3-4.6) 09/14/22 10:05 Ser , Semi-Qnt 343.10 mIU/mL 09/14/22 10:05 EKG Data EKG 1: Interpretation: [address] [address] Electrocardiograph Report Signed Patient: Siomara Edwards Unit #: [id number] : 1995 Age/Sex: 27 / F ADM Date: 09/14/22 Loc: ER Room/Bed: Attending Dr: Ordering Provider/Ordering MD: Daryl Londono Date of Service: 09/14/22 Procedure(s): ECG 12 lead EKG Accession Number(s): [id number] Report Number: [id number] ? [facility] ? Test Date:? ? 2022-09-14 Pat Name: ? ? Siomara Edwards? ? ? Department: ? Patient ID: ? [id number] ? Room: ? Gender: ? ? ? Female ? Statistics Intern: ? :? 1995 ? Requested By: Daryl Londono Order Number: [id number]? Reading : ? Elvia Márquez M.D. ? Measurements Intervals? [place]? Rate: ? 83 ? P:? 36 NE: ? 156? QRS:? 66 QRSD: ? 98 ? T:? 14 QT: ? 364? QTc:? 430? Interpretive Statements SINUS RHYTHM NONSPECIFIC T-WAVE ABNORMALITY No previous ECG available for comparison Electronically Signed On 09-14-2022 22:48:38 CDT by Elvia Márquez M.D. [id number] [id number] Dictated By: Elvia Márquez MD Signed By: Elvia Márquez MD Signed Date/Time: 09/14/22 2249 DD/ 0945 Discharge Plan Discharge Patient Disposition: Home Clinical Impression: Mild carpal tunnel syndrome of right wrist, Atypical chest pain Condition: Stable Prescriptions: No Action ibuprofen 600 mg tablet 600 mg PO Q8H PRN (Reason: pain) Qty: 10 0RF cetirizine [Zyrtec] 10 mg tablet 10 mg PO DAILY PRN (Reason: allergy symptoms) Qty: 60 0RF fluticasone propionate [Flonase Allergy Relief] 50 mcg/actuation spray,suspension 1 spray intranasal DAILY PRN (Reason: nasal congestion) Qty: 16 0RF Rx Instructions: administer into each nostril albuterol sulfate 90 mcg/actuation HFA aerosol inhaler 2 puff INHALATION Q4H PRN (Reason: Shortness Of Breath) metformin 1,000 mg tablet 1,000 mg PO BID Qty: 60 0RF Discharge Orders: Discharge ED (Routine); Ordered 09/14/22 Ordered By: Daryl Londono Referrals: Kavon Gaines MD [Primary Care Provider] - Discharge Diet: Regular Discharge Activity: Increase activity as tolerated Patient Instructions: Carpal Tunnel Syndrome, Noncardiac Chest Pain (ED) Activity Restrictions/Additional Instructions: Follow-up with your PCP/INFORMATION SYSTEMS SECURITY SPECIALIST doctor at your next scheduled appointment. Take Tylenol for any pain. You can try purchasing [id number] wrist braces to wear at night to help with right hand and wrist pain and numbness. Return to the ER or your medical provider if condition worsens. Please read and understand discharge instructions. Thank you for choosing [facility] for your healthcare needs today. Please realize this is an emergency room and that we are providing you with a medical screening exam and this may not be complete and all inclusive of all the testing and or work up that you may need to determine your ailment or severity of your illness. It is very important that you follow up as instructed or that you return to the Emergency Department should you have concerns or if your condition changes or worsens in any way. Coding Level of Care Code ED Roller Checker for Kimmie Hedrick
[2022-09-14 10:12] LABS: Basophils # 0.1 10^3/uL (0.0-0.1); Basophils % 0.6 %; Eosinophils # 0.3 10^3/uL (0.0-0.8); Eosinophils % 3.1 %; Hematocrit 42.8 % (37.0-47.0); Lymphocytes # 2.1 10^3/uL (0.8-4.8); Mean Corpuscular HGB Conc 32.7 g/dL (30.0-36.0); Mean Corpuscular Hemoglobin 26.5 pg (28.0-34.0); Mean Corpuscular Volume 80.9 fl (81-99); Monocytes # 0.5 10^3/uL (0.2-0.9); Monocytes % 4.8 %; Neutrophils # 7.12 10^3/uL (1.8-7.7); Nucleated Red Blood Cells % 0 %; Platelet Count 290 10^3/cmm (130-400); Red Blood Count 5.29 10^6/uL (4.1-5.3); Red Cell Distribution Width 13.1 % (12.1-15.1); White Blood Count 10.2 10^3/uL (4.0-10.0)
[2022-09-14 10:19] VITALS: BP 159/71; PULSE 81; RESP 16; O2SAT 97
[2022-09-14 10:41] LABS: Troponin T (5th) Once 6 ng/L (0-10)
[2022-09-14 10:52] LABS: Alanine Aminotransferase 22 U/L (0-33); Albumin Level 3.8 g/dL (3.5-5.2); Alkaline Phosphatase 62 U/L (35-105); Anion Gap 15.9 (5-19); Aspartate Amino Transferase 18 U/L (0-32); Blood Urea Nitrogen 9 mg/dL (6-20); Calcium 8.6 mg/dL (8.5-10.5); Carbon Dioxide 21 mmol/L (22-29); Chloride 103 mmol/L (98-107); Globulin 3.6 g/dL (1.3-4.6); Glomerular Filtration Rate 192.9 mL/min (90-130); Glucose 160 mg/dL (65-115); Osmolality Calculated 284 mOsm/kg (285-295); Potassium 3.9 mmol/L (3.5-5.1); Sodium 136 mmol/L (136-145); Total Bilirubin 0.3 mg/dL (0.15-1.2); Total Protein 7.4 g/dL (6.6-8.7)
[2022-09-14 11:18] VITALS: PULSE 105; RESP 16; O2SAT 98
== END 2022-09-14 11:19 | disposition home or self-care (01) ==
PROVIDERS: Emergency Provider Physician Assistant; PCP Family Medicine
DX: O99.891 Other specified diseases and conditions complicating pregnancy (principal); G56.01 Carpal tunnel syndrome, right upper limb; R07.89 Other chest pain; O16.1 Unspecified maternal hypertension, first trimester; O99.331 Smoking (tobacco) complicating pregnancy, first trimester; Z3A.01 Less than 8 weeks gestation of pregnancy
CPT/HCPCS: 36415; 71045; 80053; 84484; 84702; 85025; 93005; 99285

== ENCOUNTER → 2022-09-18 11:18 | Outpatient (BNVA) | payer OTHER, SELFPAY | PROVIDERS: PCP Family Medicine; Visit Provider Nurse Practitioner Women's Health | DX: O20.0 Threatened abortion (principal); Z3A.00 Weeks of gestation of pregnancy not specified | CPT/HCPCS: 81000; 81025; 84702 ==

== ENCOUNTER 2022-09-19 20:00 | Outpatient (CLI) | payer OTHER, SELFPAY | END 2022-09-19 20:01 | disposition home or self-care (01) | LOC: SLEEP 09-20 04:59 | PROVIDERS: PCP Family Medicine; Visit Provider Family Medicine | DX: G47.33 Obstructive sleep apnea (adult) (pediatric) (principal); R06.83 Snoring | CPT/HCPCS: 95810 ==

== ENCOUNTER → 2022-09-21 12:11 | Outpatient (BNVA) | payer OTHER, SELFPAY | PROVIDERS: PCP Family Medicine; Visit Provider Family Medicine | DX: Z34.90 Encounter for supervision of normal pregnancy, unspecified, unspecified trimester (principal); E11.9 Type 2 diabetes mellitus without complications; J06.9 Acute upper respiratory infection, unspecified | CPT/HCPCS: 83036 ==

== ENCOUNTER → 2022-10-20 08:34 | Outpatient (BNVA) | payer OTHER, SELFPAY | PROVIDERS: PCP Family Medicine; Visit Provider Obstetrics & Gynecology | DX: Z34.90 Encounter for supervision of normal pregnancy, unspecified, unspecified trimester (principal) | CPT/HCPCS: 80307; 84315; 84443; 85027; 86592; 86762; 86803; 86850; 86900; 87086; 87340; 87806 ==

== ENCOUNTER → 2022-10-26 14:43 | Outpatient (BNVA) | payer OTHER, SELFPAY | PROVIDERS: PCP Family Medicine; Visit Provider Obstetrics & Gynecology | DX: O09.899 Supervision of other high risk pregnancies, unspecified trimester (principal); Z3A.00 Weeks of gestation of pregnancy not specified | CPT/HCPCS: 87086 ==

== ENCOUNTER → 2022-11-01 10:36 | Outpatient (BNVA) | payer OTHER, SELFPAY | PROVIDERS: PCP Family Medicine; Visit Provider Obstetrics & Gynecology | DX: O09.899 Supervision of other high risk pregnancies, unspecified trimester (principal); Z3A.00 Weeks of gestation of pregnancy not specified | CPT/HCPCS: 84315; 87491; 87591; 87661; 88175 ==

== ENCOUNTER 2022-11-02 13:59 | Emergency (ER) | payer OTHER, SELFPAY ==
[2022-11-02 14:32] VITALS: BP 165/86; PULSE 126; RESP 18; TEMP 36.9; O2SAT 97
[2022-11-02 15:14] LABS: Basophils % 0.2 %; Eosinophils # 0.1 10^3/uL (0.0-0.8); Eosinophils % 0.9 %; Hematocrit 42.1 % (37.0-47.0); Hemoglobin 13.3 g/dL (11.5-15.3); Lymphocytes # 0.8 10^3/uL (0.8-4.8); Lymphocytes % 9.3 %; Mean Corpuscular HGB Conc 31.6 g/dL (30.0-36.0); Mean Corpuscular Volume 79.1 fl (81-99); Monocytes # 0.6 10^3/uL (0.2-0.9); Monocytes % 6.7 %; Neutrophils # 6.95 10^3/uL (1.8-7.7); Neutrophils % 82.3 %; Nucleated Red Blood Cells % 0 %; Platelet Count 262 10^3/cmm (130-400); Red Blood Count 5.32 10^6/uL (4.1-5.3); Red Cell Distribution Width 13.3 % (12.1-15.1); White Blood Count 8.5 10^3/uL (4.0-10.0)
[2022-11-02 15:42] LABS: Alanine Aminotransferase 24 U/L (0-33); Albumin Level 4.2 g/dL (3.5-5.2); Alkaline Phosphatase 62 U/L (35-105); Anion Gap 17.9 (5-19); Aspartate Amino Transferase 20 U/L (0-32); Blood Urea Nitrogen 4 mg/dL (6-20); Calcium 9.1 mg/dL (8.5-10.5); Carbon Dioxide 22 mmol/L (22-29); Chloride 97 mmol/L (98-107); Globulin 3.6 g/dL (1.3-4.6); Glomerular Filtration Rate 192.9 mL/min (90-130); Glucose 112 mg/dL (65-115); Lipase 17 U/L (13-60); Osmolality Calculated 274 mOsm/kg (285-295); Potassium 3.9 mmol/L (3.5-5.1); Sodium 133 mmol/L (136-145); Total Bilirubin 0.3 mg/dL (0.15-1.2); Total Protein 7.8 g/dL (6.6-8.7)
--- NOTE | 2022-11-02 15:45 | ED_ITS ---
HPI - Abdominal Pain General: Chief Complaint: Abdominal Pain Stated Complaint: lower back pain, 11 weeks Time Seen by Provider: 11/02/22 15:43 Source: patient Mode of arrival: ambulatory History of Present Illness: 27-year-old G1, P0 with an EDC of 08/08/2022 at approximately 11 weeks gestation presents to the emergency room complaining of low back pain. She has some discomfort into her legs. She has no difficulty with bowel or bladder no vaginal bleeding or discharge no pelvic pain or cramping. No triggering events. She tried Tylenol and ibuprofen and heat without relief. Onset (ago): hour(s) Pain Consistency: constant Location: Other (Lumbosacral back) Severity: severe Quality: sharp Radiation: none Exacerbating factors: movement Relieving factors: nothing Associated Symptoms: Denies anorexia, chills, GI cramping, dyspepsia, dysuria, fever(s), hematuria, fecal incontinence, loose stools, nausea, poor appetite, syncope and vomiting Review of Systems Const: Denies: fever(s), chills, fatigue or malaise Card: Denies: syncope Resp: Denies: dyspnea, productive cough or non-productive cough GI: Denies: nausea, vomiting, GI cramping or fecal incontinence : Denies: dysuria, urinary incontinence or hematuria Skin/Breast: Denies: rash or pruritus PFSH ED PFSH: Medical History Bipolar 1 disorder BMI 50.0-59.9, adult Hx of transfusion of whole blood Hypertension Laceration of left knee without complication No pertinent family history Spinal headache Suicidal ideation Surgical History Hx of tonsillectomy No pertinent past surgical history Family History Mother Anemia Psychiatric illness bipolar Other Cancer Chronic kidney disease (CKD) Clotting disorder Dementia Diabetes Hyperlipidemia Hypertension Stroke Denies family history of CAD (coronary artery disease) Suicide Anesthesia complication Bleeding disorder Family history of premature coronary artery disease Lung disease Social History Smoking and tobacco status: current every day smoker cigarettes Packs smoked per day: 0.5 Alcohol intake: never Substance/Drug Use: never Physical Exam Const: COMMON NORMALS: no acute distress GENERAL APPEARANCE: cooperative and comfortable ORIENTATION/CONSCIOUSNESS: Yes awake, Yes oriented to person, Yes oriented to place and Yes oriented to time HENMT: COMMON NORMALS: normocephalic, atraumatic and hearing grossly normal bilaterally HEAD & SCALP: normocephalic and atraumatic Resp: COMMON NORMALS: normal respiratory effort, No retractions, No use of accessory muscles and clear to auscultation bilaterally AUSCULTATION: clear to auscultation bilaterally Cardio: COMMON NORMALS: regular rate, regular rhythm and No murmurs present (Cardio) RATE: regular rate RHYTHM: regular rhythm GI: COMMON NORMALS: Soft to palpation and No hepatosplenomegaly present AUSCULTATION: Yes normoactive bowel sounds PALPATION: Yes Soft to palpation, No Tenderness to palpation present (GI), No Guarding due to palpation present (GI) and Yes No hepatosplenomegaly present Extremity: COMMON NORMALS: normal to inspection, capillary refill normal, no clubbing, cyanosis or edema, no calf tenderness and no pedal edema Neuro: SENSORIUM/ORIENTATION: Yes oriented to person, Yes oriented to place and Yes oriented to time Skin: COMMON NORMALS: no rashes or lesions noted GENERAL SKIN EXAM: no rashes or lesions noted Course Vital Signs: Vital signs: Vital Signs Temperature 98.5 F 11/02/22 14:32 Pulse Rate 126 H 11/02/22 14:32 Respiratory Rate 16 11/02/22 16:14 Blood Pressure 165/86 11/02/22 14:32 Pulse Oximetry 96 11/02/22 16:14 Oxygen Delivery Me thod Room Air 11/02/22 14:32 MDM - Abdominal Pain Medical Decision Making UA negative exam consistent with musculoskeletal low back pain she not having any pelvic pain vaginal bleeding or discharge. Discharge home short course of diclofenac can use Tylenol ice or heat as needed use Flexeril as needed. Follow-up primary care doctor return to the ER primary care if worsens. Avoid lifting greater than 10 pounds avoid stooping and bending Medical Records I reviewed the patient's medical records. Lab Data I reviewed the patient's lab results. 11/02/22 14:48 11/02/22 14:48 Labs/Radiology: Laboratory Results WBC 8.5 10^3/uL (4.0-10.0) 11/02/22 14:48 RBC 5.32 10^6/uL (4.1-5.3) H 11/02/22 14:48 Hgb 13.3 g/dL (11.5-15.3) 11/02/22 14:48 Hct 42.1 % (37.0-47.0) 11/02/22 14:48 MCV 79.1 fl (81-99) L 11/02/22 14:48 MCH 25.0 pg (28.0-34.0) L 11/02/22 14:48 MCHC 31.6 g/dL (30.0-36.0) 11/02/22 14:48 RDW 13.3 % (12.1-15.1) 11/02/22 14:48 Plt Count 262 10^3/cmm (130-400) 11/02/22 14:48 MPV 10.0 fL (7.4-10.4) 11/02/22 14:48 Neut % (Auto) 82.3 % 11/02/22 14:48 Lymph % (Auto) 9.3 % 11/02/22 14:48 [place] % (Auto) 6.7 % 11/02/22 14:48 Eos % (Auto) 0.9 % 11/02/22 14:48 Baso % (Auto) 0.2 % 11/02/22 14:48 Neut # (Auto) 6.95 10^3/uL (1.8-7.7) 11/02/22 14:48 Lymph # (Auto) 0.8 10^3/uL (0.8-4.8) 11/02/22 14:48 [place] # (Auto) 0.6 10^3/uL (0.2-0.9) 11/02/22 14:48 Eos # (Auto) 0.1 10^3/uL (0.0-0.8) 11/02/22 14:48 Baso # (Auto) 0.0 10^3/uL (0.0-0.1) 11/02/22 14:48 Nucleated RBC % (auto) 0 % 11/02/22 14:48 Nucleated RBCs # 0.0 /100WBC 11/02/22 14:48 Sodium 133 mmol/L (136-145) L 11/02/22 14:48 Potassium 3.9 mmol/L (3.5-5.1) 11/02/22 14:48 Chloride 97 mmol/L (98-107) L 11/02/22 14:48 Carbon Dioxide 22 mmol/L (22-29) 11/02/22 14:48 Anion Gap 17.9 (5-19) 11/02/22 14:48 BUN 4 mg/dL (6-20) L 11/02/22 14:48 Creatinine 0.4 mg/dL (0.5-0.9) L 11/02/22 14:48 GFR Calculation 192.9 mL/min (90-130) H 11/02/22 14:48 Glucose 112 mg/dL (65-115) 11/02/22 14:48 Calculated Osmolality 274 mOsm/kg (285-295) L 11/02/22 14:48 Calcium 9.1 mg/dL (8.5-10.5) 11/02/22 14:48 Total Bilirubin 0.3 mg/dL (0.15-1.2) 11/02/22 14:48 AST 20 U/L (0-32) 11/02/22 14:48 ALT 24 U/L (0-33) 11/02/22 14:48 Alkaline Phosphatase 62 U/L (35-105) 11/02/22 14:48 Total Protein 7.8 g/dL (6.6-8.7) 11/02/22 14:48 Albumin 4.2 g/dL (3.5-5.2) 11/02/22 14:48 Globulin 3.6 g/dL (1.3-4.6) 11/02/22 14:48 Lipase 17 U/L (13-60) 11/02/22 14:48 Urine Color Yellow (Yellow) 11/02/22 16:20 Urine Appearance Clear (CLEAR) 11/02/22 16:20 Urine pH 6.5 (5-7) 11/02/22 16:20 Ur Specific [place] 1.015 (1.005-1.030) 11/02/22 16:20 Urine Protein Neg (Negative) 11/02/22 16:20 Urine Glucose (UA) Norm (Normal) 11/02/22 16:20 Urine Ketones Negative (Negative) 11/02/22 16:20 Urine Blood Neg (Negative) 11/02/22 16:20 Urine Nitrate Negative (Negative) 11/02/22 16:20 Urine Bilirubin Neg (Negative) 11/02/22 16:20 Urine Urobilinogen Norm mg/dL (Negative) 11/02/22 16:20 Ur Leukocyte Esterase Negative (Negative) 11/02/22 16:20 Discharge Plan Discharge Patient Disposition: Home Clinical Impression: Lumbosacral strain Condition: Stable Prescriptions: New cyclobenzaprine 10 mg tablet 10 mg PO TID PRN (Reason: muscle spasm) Qty: 20 0RF diclofenac sodium 75 mg tablet,delayed release (DR/EC) 75 mg PO Q12H PRN (Reason: pain) Qty: 14 0RF No Action metformin 1,000 mg tablet 1,000 mg PO BID Qty: 60 0RF Aspir-81 81 mg Tablet,Delayed Release (Dr/Ec) 81 mg PO QAM Tylenol Ex Str Rapid Release 500 mg Tablet 1,000 mg PO Q6H PRN (Reason: Pain) ibuprofen 200 mg Tablet 600 mg PO Q6H PRN (Reason: Pain) omeprazole 20 mg capsule,delayed release(DR/EC) 20 mg PO QAM Discharge Orders: Discharge ED (Routine); Ordered 11/02/22 Ordered By: Celestino Mcgovern Referrals: Kavon Gaines MD [Primary Care Provider] - Discharge Diet: Usual diet Discharge Activity: Increase activity as tolerated Patient Instructions: Opioid Safety, Pain Management Activity Restrictions/Additional Instructions: You were seen today for low back pain. Your back pain is musculoskeletal in nature. You can use the Flexeril or the diclofenac. Do not use ibuprofen or Aleve if using the diclofenac. The diclofenac is only for short period of time. You may also use Tylenol or moist heat or cold to your back as needed for comfort. Follow-up with your primary care doctor. Coding Level of Care Code ED Creel Selector for Kimmie Hedrick
[2022-11-02] MEDS: dexamethasone 10 mg/mL INJ IVP (16:13)
[2022-11-02 16:14] VITALS: RESP 16; O2SAT 96
[2022-11-02] MEDS: morphine 4 mg/mL SDV 1 mL IVP (16:14)
[2022-11-02] MEDS: cyclobenzaprine 10 mg Tablet PO (16:15)
[2022-11-02 16:33] LABS: Add Urine Microscopic? NO; Charge for UA Resulting for Rev
[2022-11-02 17:06] LABS: Bilirubin Urine Neg (Negative); Blood Urine Neg (Negative); Glucose Urine UA Norm (Normal); Ketones Urine Negative (Negative); Leukocyte Esterase Urine Negative (Negative); Nitrate Urine Negative (Negative); Protein Urine Neg (Negative); Specific Gravity, Urine 1.015 (1.005-1.030); Urine Appearance Clear (CLEAR); Urine Color Yellow (Yellow); Urobilinogen Urine Norm (Negative); pH Urine 6.5 (5-7)
[2022-11-02 17:43] VITALS: RESP 16; O2SAT 96
[2022-11-02 18:05] LABS: Add Urine Culture? No; Bacteria Urine TRACE /hpf; Bilirubin Urine Neg (Negative); Blood Urine Neg (Negative); Glucose Urine UA Norm (Normal); Ketones Urine Negative (Negative); Leukocyte Esterase Urine Negative (Negative); Nitrate Urine Negative (Negative); Protein Urine Neg (Negative); Urine Appearance Hazy (CLEAR); Urine Color Yellow (Yellow); Urobilinogen Urine Norm (Negative); WBC Urine 0-4 /hpf (0-5); pH Urine 6.5 (5-7)
== END 2022-11-02 17:45 | disposition home or self-care (01) ==
PROVIDERS: Physician Assistant; Emergency Provider Family Medicine; PCP Family Medicine
DX: O9A.211 Injury, poisoning and certain other consequences of external causes complicating pregnancy, first trimester (principal); S39.012A Strain of muscle, fascia and tendon of lower back, initial encounter; Z79.82 Long term (current) use of aspirin; Z79.84 Long term (current) use of oral hypoglycemic drugs; F17.210 Nicotine dependence, cigarettes, uncomplicated; O99.331 Smoking (tobacco) complicating pregnancy, first trimester; O10.011 Pre-existing essential hypertension complicating pregnancy, first trimester; Z3A.11 11 weeks gestation of pregnancy; X58.XXXA Exposure to other specified factors, initial encounter
CPT/HCPCS: 36415; 80053; 81001; 81003; 83690; 85025; 96374; 96375; 99284; J1100; J2270

== ENCOUNTER → 2022-11-08 13:23 | Outpatient (BNVA) | payer OTHER, SELFPAY | PROVIDERS: PCP Family Medicine; Visit Provider Family Medicine | DX: E11.9 Type 2 diabetes mellitus without complications (principal); R42 Dizziness and giddiness; K21.9 Gastro-esophageal reflux disease without esophagitis | CPT/HCPCS: 82962 ==

== ENCOUNTER 2022-11-13 15:38 | Emergency (ER) | payer OTHER, SELFPAY ==
[2022-11-13 16:02] VITALS: BP 160/85; PULSE 84; RESP 16; TEMP 36.8; O2SAT 98
[2022-11-13 17:55] LABS: Hepatitis B Surface AB 9.4 (11.5-1000)
[2022-11-13 17:56] LABS: Hepatitis C Virus Antibody Non-Reactive (Nonreactive)
[2022-11-13 18:20] LABS: Hepatitis B Surface Antigen Non-Reactive (Nonreactive)
[2022-11-16 13:41] LABS: HIV 1 & 2 Antibody Non-Reactive (Non-Reactiv); HIV 1 & 2 Antigen Non-Reactive (Non-Reactiv)
== END 2022-11-13 16:15 | disposition home or self-care (01) ==
PROVIDERS: Physician Assistant; Emergency Provider Family Medicine; PCP Family Medicine
DX: Z53.21 Procedure and treatment not carried out due to patient leaving prior to being seen by health care provider (principal)
CPT/HCPCS: 86706; 86803; 87340; 87806; 99283

== ENCOUNTER 2022-12-02 15:36 | Emergency (ER) | payer OTHER, SELFPAY ==
[2022-12-02 15:49] VITALS: BP 140/77; PULSE 86; RESP 20; TEMP 36.6; O2SAT 98
--- NOTE | 2022-12-02 16:06 | ED_ITS ---
HPI - Skin/Abscess/Foreign Bdy General: Chief complaint: Needlestick/Injury/Exposure Stated complaint: needlestick Time Seen by Provider: 12/02/22 15:55 History of Present Illness: Patient is a 27-year-old female comes to the ED with accidental needlestick injury. 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 Denies any other injury or trauma. Patient does states she is 16 weeks currently. Associated symptoms: Deny chills, fever(s), nausea or vomiting Review of Systems Const: Denies: fever(s), chills or fatigue Eyes: Denies: change in vision or eye discomfort ENMT: Denies: throat pain, odynophagia, nasal discharge or nasal congestion Card: Denies: chest pain, palpitations, edema, swelling of feet/ankles, dyspnea on exertion or orthopnea Resp: Denies: dyspnea, productive cough or non-productive cough GI: Denies: abdominal pain, nausea, vomiting, diarrhea, constipation or hematochezia : Denies: flank pain, dysuria or hematuria Musc: Denies: neck pain, back pain or extremity swelling Skin/Breast: Reports: new lesions (Puncture wound to distal tip of left ring finger); Denies: rash Neuro: Denies: headache(s), numbness in extremities or weakness in extremities [facility] ED PFSH: Medical History Bipolar 1 disorder BMI 50.0-59.9, adult Hx of transfusion of whole blood Hypertension Laceration of left knee without complication No pertinent family history Spinal headache Suicidal ideation Surgical History Hx of tonsillectomy No pertinent past surgical history Family History Mother Anemia Psychiatric illness bipolar Other Cancer Chronic kidney disease (CKD) Clotting disorder Dementia Diabetes Hyperlipidemia Hypertension Stroke Denies family history of CAD (coronary artery disease) Suicide Anesthesia complication Bleeding disorder Family history of premature coronary artery disease Lung disease Social History Smoking and tobacco status: current every day smoker cigarettes Packs smoked per day: 0.25 Alcohol intake: never Substance/Drug Use: never Physical Exam Const: COMMON NORMALS: patient oriented x3 HENMT: COMMON NORMALS: normocephalic HEAD & SCALP: normocephalic MOUTH: Normal oral and palatal mucosa present THROAT: posterior oropharynx normal and uvula midline Neck/C-Spine: COMMON NORMALS: supple GENERAL: Yes normal visual inspection Resp: COMMON NORMALS: normal respiratory effort, No retractions, No use of accessory muscles and clear to auscultation bilaterally AUSCULTATION: clear to auscultation bilaterally Cardio: COMMON NORMALS: regular rate, regular rhythm, S1 normal heart sound present, S2 normal heart sound present, No gallops present (Cardio), No clicks present (Cardio), No murmurs present (Cardio) and Peripheral pulses 2+ throughout RATE: regular rate RHYTHM: regular rhythm HEART SOUNDS: S1 normal heart sound present and S2 normal heart sound present PERIPHERAL PULSES: Peripheral pulses 2+ throughout GI: COMMON NORMALS: Normal to inspection, nondistended, normoactive bowel sounds present, Soft to palpation, non-tender and no masses PALPATION: Yes Soft to palpation : COMMON NORMALS: Yes no CVA tenderness BLADDER/KIDNEY EXAM: Yes no CVA tenderness Back/Pelvis: COMMON NORMALS: no CVA tenderness Extremity: NARRATIVE EXTREMITY EXAM: Left fourth digit of hand?small superficial puncture wound noted at distal pad of finger. No active bleeding. No erythema, warmth or purulent drainage seen. No nailbed or nail damage noted. GENERAL: Yes normal exam except as noted Neuro: COMMON NORMALS: patient oriented x3 GAIT: Yes Normal gait present Skin: GENERAL SKIN EXAM: dry skin Course Vital Signs: Vital signs: Vital Signs Temperature 97.9 F 12/02/22 15:49 Pulse Rate 86 12/02/22 15:49 Respiratory Rate 20 H 12/02/22 15:49 Blood Pressure 140/77 12/02/22 15:49 Pulse Oximetry 98 12/02/22 15:49 Oxygen Delivery Me thod Room Air 12/02/22 15:49 MDM - Skin/Abscess/Foreign Bdy Medicial Decision Making Patient is a 27-year-old female comes to the ED with accidental needlestick injury. 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 Denies any other injury or trauma. Patient does states she is 16 weeks currently. Left fourth digit of hand?small superficial puncture wound noted at distal pad of finger. No active bleeding. No erythema, warmth or purulent drainage seen. No nailbed or nail damage noted. Vital stable. CBC, CMP, HIV and hepatitis labs ordered and pending. Patient was stable for discharge and cleared to go back to work. She was told to check with her patient portal or call [facility] lab to find out test results. She was also informed to follow-up with her PCP in the next 4 to 6 weeks for repeat labs. Patient understood and agreed with plan. Lab Data I reviewed the patient's lab results. 12/02/22 16:20 12/02/22 16:20 Laboratory Results WBC 8.1 10^3/uL (4.0-10.0) 12/02/22 16:20 RBC 4.86 10^6/uL (4.1-5.3) 12/02/22 16:20 Hgb 12.3 g/dL (11.5-15.3) 12/02/22 16:20 Hct 38.4 % (37.0-47.0) 12/02/22 16:20 MCV 79.0 fl (81-99) L 12/02/22 16:20 MCH 25.3 pg (28.0-34.0) L 12/02/22 16:20 MCHC 32.0 g/dL (30.0-36.0) 12/02/22 16:20 RDW 14.4 % (12.1-15.1) 12/02/22 16:20 Plt Count 263 10^3/cmm (130-400) 12/02/22 16:20 MPV 10.0 fL (7.4-10.4) 12/02/22 16:20 Neut % (Auto) 68.5 % 12/02/22 16:20 Lymph % (Auto) 23.1 % 12/02/22 16:20 [place] % (Auto) 5.2 % 12/02/22 16:20 Eos % (Auto) 2.6 % 12/02/22 16:20 Baso % (Auto) 0.2 % 12/02/22 16:20 Neut # (Auto) 5.53 10^3/uL (1.8-7.7) 12/02/22 16:20 Lymph # (Auto) 1.9 10^3/uL (0.8-4.8) 12/02/22 16:20 [place] # (Auto) 0.4 10^3/uL (0.2-0.9) 12/02/22 16:20 Eos # (Auto) 0.2 10^3/uL (0.0-0.8) 12/02/22 16:20 Baso # (Auto) 0.0 10^3/uL (0.0-0.1) 12/02/22 16:20 Nucleated RBC % (auto) 0 % 12/02/22 16:20 Nucleated RBCs # 0.0 /100WBC 12/02/22 16:20 Sodium 134 mmol/L (136-145) L 12/02/22 16:20 Potassium 3.6 mmol/L (3.5-5.1) 12/02/22 16:20 Chloride 101 mmol/L (98-107) 12/02/22 16:20 Carbon Dioxide 20 mmol/L (22-29) L 12/02/22 16:20 Anion Gap 16.6 (5-19) 12/02/22 16:20 BUN 11 mg/dL (6-20) 12/02/22 16:20 Creatinine 0.3 mg/dL (0.5-0.9) L 12/02/22 16:20 GFR Calculation 268.9 mL/min (90-130) H 12/02/22 16:20 Glucose 112 mg/dL (65-115) 12/02/22 16:20 Calculated Osmolality 278 mOsm/kg (285-295) L 12/02/22 16:20 Calcium 9.3 mg/dL (8.5-10.5) 12/02/22 16:20 Total Bilirubin 0.2 mg/dL (0.15-1.2) 12/02/22 16:20 AST 16 U/L (0-32) 12/02/22 16:20 ALT 21 U/L (0-33) 12/02/22 16:20 Alkaline Phosphatase 57 U/L (35-105) 12/02/22 16:20 Total Protein 7.2 g/dL (6.6-8.7) 12/02/22 16:20 Albumin 3.8 g/dL (3.5-5.2) 12/02/22 16:20 Globulin 3.4 g/dL (1.3-4.6) 12/02/22 16:20 Hepatitis A IgM Ab Non-reactive (Nonreactive) 12/02/22 16:20 Hep Bs Antigen Non-reactive (Nonreactive) 12/02/22 16:20 Hep Bs Antibody 5.0 (11.5-1000) L 12/02/22 16:20 Hep B Core Total Ab Non-reactive (Nonreactive) 12/02/22 16:20 Hepatitis C Antibody Non-reactive (Nonreactive) 12/02/22 16:20 HIV 1&2 Ab & HIV 1 Ag Non-reactive (Non-Reactiv) 12/02/22 16:20 HIV 1&2 Antibody Non-reactive (Non-Reactiv) 12/02/22 16:20 Discharge Plan Discharge Patient Disposition: Home Clinical Impression: Exposure to body fluid due to accidental needlestick injury Condition: Stable Prescriptions: No Action azithromycin 250 mg tablet See Rx Instructions PO .COMPLEX Qty: 6 0RF Rx Instructions: take 500 mg today (day 1), then 250 mg for 4 days (days 2-5) PO metronidazole 500 mg tablet 500 mg PO BID Qty: 14 0RF metformin 1,000 mg tablet 1,000 mg PO BID Qty: 60 0RF Aspir-81 81 mg Tablet,Delayed Release (Dr/Ec) 81 mg PO QAM Tylenol Ex Str Rapid Release 500 mg Tablet 1,000 mg PO Q6H PRN (Reason: Pain) ibuprofen 200 mg Tablet 600 mg PO Q6H PRN (Reason: Pain) omeprazole 20 mg capsule,delayed release(DR/EC) 20 mg PO QAM cyclobenzaprine 10 mg tablet 10 mg PO TID PRN (Reason: muscle spasm) Qty: 20 0RF diclofenac sodium 75 mg tablet,delayed release (DR/EC) 75 mg PO Q12H PRN (Reason: pain) Qty: 14 0RF Discharge Orders: Discharge ED (Routine); Ordered 12/02/22 Ordered By: Daryl Londono Referrals: [facility], [Primary Care Provider] - Discharge Diet: Regular Discharge Activity: Increase activity as tolerated Patient Instructions: Needle Stick Injuries (ED) Activity Restrictions/Additional Instructions: Follow-up with medical provider as directed in the next 4 to 6 weeks to have the labs repeated. Continue taking all home medications as previously prescribed. Return to the ER or your medical provider if condition worsens. Please read and understand discharge instructions. Thank you for choosing [facility] for your healthcare needs today. Please realize this is an emergency room and that we are providing you with a medical screening exam and this may not be complete and all inclusive of all the testing and or work up that you may need to determine your ailment or severity of your illness. It is very important that you follow up as instructed or that you return to the Emergency Department should you have concerns or if your condition changes or worsens in any way. Coding Level of Care Code ED Community Development Planner for Kimmie Hedrick
[2022-12-02 16:29] LABS: Basophils % 0.2 %; Eosinophils # 0.2 10^3/uL (0.0-0.8); Eosinophils % 2.6 %; Hematocrit 38.4 % (37.0-47.0); Hemoglobin 12.3 g/dL (11.5-15.3); Lymphocytes # 1.9 10^3/uL (0.8-4.8); Lymphocytes % 23.1 %; Mean Corpuscular Hemoglobin 25.3 pg (28.0-34.0); Monocytes # 0.4 10^3/uL (0.2-0.9); Monocytes % 5.2 %; Neutrophils # 5.53 10^3/uL (1.8-7.7); Neutrophils % 68.5 %; Nucleated Red Blood Cells % 0 %; Platelet Count 263 10^3/cmm (130-400); Red Blood Count 4.86 10^6/uL (4.1-5.3); Red Cell Distribution Width 14.4 % (12.1-15.1); White Blood Count 8.1 10^3/uL (4.0-10.0)
[2022-12-02 16:49] LABS: Alanine Aminotransferase 21 U/L (0-33); Albumin Level 3.8 g/dL (3.5-5.2); Alkaline Phosphatase 57 U/L (35-105); Anion Gap 16.6 (5-19); Aspartate Amino Transferase 16 U/L (0-32); Blood Urea Nitrogen 11 mg/dL (6-20); Calcium 9.3 mg/dL (8.5-10.5); Carbon Dioxide 20 mmol/L (22-29); Chloride 101 mmol/L (98-107); Globulin 3.4 g/dL (1.3-4.6); Glomerular Filtration Rate 268.9 mL/min (90-130); Glucose 112 mg/dL (65-115); Osmolality Calculated 278 mOsm/kg (285-295); Potassium 3.6 mmol/L (3.5-5.1); Sodium 134 mmol/L (136-145); Total Bilirubin 0.2 mg/dL (0.15-1.2); Total Protein 7.2 g/dL (6.6-8.7)
[2022-12-02 17:22] LABS: HIV 1 & 2 Antibody Non-Reactive (Non-Reactiv); HIV 1 & 2 Antigen Non-Reactive (Non-Reactiv)
[2022-12-02 17:23] LABS: Hepatitis A Antibody IgM Non-Reactive (Nonreactive); Hepatitis B Core AB, Total Non-Reactive (Nonreactive); Hepatitis B Surface Antigen Non-Reactive (Nonreactive); Hepatitis C Virus Antibody Non-Reactive (Nonreactive)
--- NOTE | 2022-12-06 13:18 | DCPLANNER ---
paper mill manager was triggered to call patient due to no primary care physician - patient sees Dr. Perez at [facility].
== END 2022-12-02 16:25 | disposition home or self-care (01) ==
PROVIDERS: Emergency Provider Physician Assistant
DX: Z77.21 Contact with and (suspected) exposure to potentially hazardous body fluids (principal); W46.1XXA Contact with contaminated hypodermic needle, initial encounter; Y92.239 Unspecified place in hospital as the place of occurrence of the external cause; Y99.0 Civilian activity done for income or pay; F17.210 Nicotine dependence, cigarettes, uncomplicated; I10 Essential (primary) hypertension
CPT/HCPCS: 36415; 80053; 85025; 86705; 86706; 86709; 86803; 87340; 87806; 99283

== ENCOUNTER → 2022-12-12 14:00 | Outpatient (BNVA) | payer SELFPAY | PROVIDERS: Visit Provider Obstetrics & Gynecology | DX: O09.899 Supervision of other high risk pregnancies, unspecified trimester (principal); Z3A.00 Weeks of gestation of pregnancy not specified | CPT/HCPCS: 81000 ==

== ENCOUNTER 2022-12-25 23:07 | Outpatient (CLI) | payer MEDICAID, SELFPAY ==
[2022-12-25 22:52] VITALS: BMI 45.1
[2022-12-25 23:22] VITALS: BP 145/71; PULSE 88; TEMP 36.1
[2022-12-25 23:55] VITALS: BP 145/71; PULSE 88; RESP 16; TEMP 36.1
== END 2022-12-25 23:55 | disposition home or self-care (01) ==
LOC: OPOB 23:08 → OBGYN 23:09
PROVIDERS: Visit Provider Obstetrics & Gynecology
DX: O36.8190 Decreased fetal movements, unspecified trimester, not applicable or unspecified (principal); Z3A.00 Weeks of gestation of pregnancy not specified
CPT/HCPCS: 99211

== ENCOUNTER 2022-12-31 21:47 | Outpatient (CLI) | payer MEDICAID, SELFPAY ==
[2022-12-31] VITALS (24 sets, daily range): BP systolic 118–142; BP diastolic 57–63; PULSE 81–94; RESP 15; TEMP 36.1; O2SAT 97–100; BMI 45.4
[2023-01-01 00:05] VITALS: RESP 16
== END 2023-01-01 00:05 | disposition home or self-care (01) ==
LOC: OPOB 21:57 → OBGYN 22:05
PROVIDERS: Visit Provider Obstetrics & Gynecology
DX: O16.9 Unspecified maternal hypertension, unspecified trimester (principal); Z3A.00 Weeks of gestation of pregnancy not specified
CPT/HCPCS: 99211

== ENCOUNTER 2023-01-06 23:00 | Outpatient (CLI) | payer OTHER, MEDICAID, SELFPAY ==
[2023-01-06 23:05] VITALS: TEMP 35.7
[2023-01-06 23:23] VITALS: BP 144/65; PULSE 83; TEMP 36.2
[2023-01-06 23:32] VITALS: TEMP 36.6
[2023-01-06 23:37] VITALS: BMI 45.6
[2023-01-06 23:44] VITALS: BP 139/63; PULSE 77
[2023-01-07] LABS: Basophils % 0.3 %; Eosinophils # 0.2 10^3/uL (0.0-0.8); Eosinophils % 1.7 %; Hematocrit 34.6 % (37.0-47.0); Hemoglobin 11.3 g/dL (11.5-15.3); Lymphocytes # 1.8 10^3/uL (0.8-4.8); Lymphocytes % 19.9 %; Mean Corpuscular HGB Conc 32.7 g/dL (30.0-36.0); Mean Corpuscular Hemoglobin 26.3 pg (28.0-34.0); Mean Corpuscular Volume 80.5 fl (81-99); Mean Platelet Volume 10.1 fL (7.4-10.4); Monocytes # 0.5 10^3/uL (0.2-0.9); Monocytes % 5.4 %; Neutrophils # 6.64 10^3/uL (1.8-7.7); Neutrophils % 72.2 %; Nucleated Red Blood Cells % 0 %; Platelet Count 256 10^3/cmm (130-400); Red Cell Distribution Width 14.6 % (12.1-15.1); White Blood Count 9.2 10^3/uL (4.0-10.0)
[2023-01-07 00:14] LABS: Add Urine Microscopic? NO; Charge for UA Resulting for Rev
[2023-01-07 00:18] LABS: Bilirubin Urine Neg (Negative); Blood Urine Neg (Negative); Glucose Urine UA Norm (Normal); Ketones Urine Negative (Negative); Leukocyte Esterase Urine Negative (Negative); Nitrate Urine Negative (Negative); Protein Urine Neg (Negative); Specific Gravity, Urine 1.015 (1.005-1.030); Urine Appearance Cloudy (CLEAR); Urine Color Yellow (Yellow); Urobilinogen Urine Norm (Negative); pH Urine 7 (5-7)
[2023-01-07 00:21] LABS: Alanine Aminotransferase 23 U/L (0-33); Albumin Level 3.6 g/dL (3.5-5.2); Alkaline Phosphatase 56 U/L (35-105); Anion Gap 14.4 (5-19); Aspartate Amino Transferase 16 U/L (0-32); Blood Urea Nitrogen 8 mg/dL (6-20); Calcium 9.2 mg/dL (8.5-10.5); Carbon Dioxide 21 mmol/L (22-29); Chloride 104 mmol/L (98-107); Globulin 3.2 g/dL (1.3-4.6); Glomerular Filtration Rate 268.9 mL/min (90-130); Glucose 138 mg/dL (65-115); Osmolality Calculated 283 mOsm/kg (285-295); Potassium 3.4 mmol/L (3.5-5.1); Sodium 136 mmol/L (136-145); Total Bilirubin 0.2 mg/dL (0.15-1.2); Total Protein 6.8 g/dL (6.6-8.7)
[2023-01-07 00:22] LABS: Uric Acid 4.5 mg/dL (2.4-5.7)
[2023-01-07 00:31] LABS: Urine Creatinine 81 mg/dL (28-217); Urine Protein Random 12 mg/dL
[2023-01-07 00:37] LABS: UPRO/UCREAT Ratio 0.15 mg/mg CR
[2023-01-07 01:10] VITALS: BP 139/63; PULSE 77
== END 2023-01-07 01:10 | disposition home or self-care (01) ==
LOC: OPOB 23:01 → OBGYN 01-07 01:00
PROVIDERS: Visit Provider Obstetrics & Gynecology
DX: Z36.9 Encounter for antenatal screening, unspecified (principal)
CPT/HCPCS: 36415; 80053; 81003; 82570; 84156; 84550; 85025; 99211

== ENCOUNTER → 2023-01-24 14:58 | Outpatient (BNVA) | payer OTHER, MEDICAID, SELFPAY | PROVIDERS: Visit Provider Nurse Practitioner Family | DX: J02.9 Acute pharyngitis, unspecified (principal); Z20.822 Contact with and (suspected) exposure to COVID-19; J06.9 Acute upper respiratory infection, unspecified | CPT/HCPCS: 87071; 87426; 87880 ==

== ENCOUNTER 2023-01-25 11:05 | Outpatient (CLI) | payer OTHER, MEDICAID, SELFPAY ==
[2023-01-25] VITALS (10 sets, daily range): BP systolic 140–154; BP diastolic 66–75; PULSE 108–123; RESP 20; TEMP 36.1–37.8; O2SAT 94–96; BMI 45.4
[2023-01-25] MEDS: sodium chloride 0.9% 1,000 ML 999 ML IV (13:00)
[2023-01-25 13:02] LABS: Basophils % 0.3 %; Eosinophils # 0.1 10^3/uL (0.0-0.8); Eosinophils % 0.8 %; Hematocrit 36.8 % (37.0-47.0); Lymphocytes # 0.6 10^3/uL (0.8-4.8); Mean Corpuscular HGB Conc 32.6 g/dL (30.0-36.0); Mean Corpuscular Hemoglobin 26.1 pg (28.0-34.0); Mean Corpuscular Volume 80.2 fl (81-99); Mean Platelet Volume 10.8 fL (7.4-10.4); Monocytes # 0.5 10^3/uL (0.2-0.9); Monocytes % 4.7 %; Neutrophils # 9.17 10^3/uL (1.8-7.7); Neutrophils % 87.5 %; Nucleated Red Blood Cells % 0 %; Platelet Count 258 10^3/cmm (130-400); Red Blood Count 4.59 10^6/uL (4.1-5.3); Red Cell Distribution Width 14.1 % (12.1-15.1); White Blood Count 10.5 10^3/uL (4.0-10.0)
[2023-01-25 13:44] LABS: Add Urine Culture? No; Add Urine Microscopic? YES; Bacteria Urine 1+ /hpf; Bilirubin Urine Neg (Negative); Blood Urine Neg (Negative); Glucose Urine UA Norm (Normal); Ketones Urine Negative (Negative); Leukocyte Esterase Urine Negative (Negative); Mucus Urine 3+ /hpf; Nitrate Urine Negative (Negative); Protein Urine 1+ (Negative); RBC Urine 0-4 /hpf (0-2); Squamous Epithelial Cell Urine 0-4 /hpf (0-5); Urine Appearance Clear (CLEAR); Urine Color Yellow (Yellow); Urobilinogen Urine Norm (Negative); WBC Urine 0-4 /hpf (0-5); pH Urine 6 (5-7)
[2023-01-25 14:16] LABS: Urine Creatinine 135 mg/dL (28-217)
[2023-01-25 14:17] LABS: Alanine Aminotransferase 23 U/L (0-33); Albumin Level 3.7 g/dL (3.5-5.2); Alkaline Phosphatase 68 U/L (35-105); Anion Gap 16.8 (5-19); Aspartate Amino Transferase 25 U/L (0-32); Blood Urea Nitrogen 4 mg/dL (6-20); Calcium 8.5 mg/dL (8.5-10.5); Carbon Dioxide 20 mmol/L (22-29); Chloride 101 mmol/L (98-107); Globulin 3.5 g/dL (1.3-4.6); Glomerular Filtration Rate 268.9 mL/min (90-130); Glucose 112 mg/dL (65-115); Osmolality Calculated 276 mOsm/kg (285-295); Potassium 3.8 mmol/L (3.5-5.1); Sodium 134 mmol/L (136-145); Total Bilirubin 0.2 mg/dL (0.15-1.2); Total Protein 7.2 g/dL (6.6-8.7); Uric Acid 3.7 mg/dL (2.4-5.7)
[2023-01-25 14:18] LABS: Urine Protein Random 40 mg/dL
[2023-01-25] MEDS: cetylpyridinium Lozenge 1 EACH MUCOUS MEM (14:55)
[2023-01-25 17:09] LABS: Adenovirus Not Detected (NOT DETECT); Chlamydia Pneumoniae Not Detected (NOT DETECT); Coronavirus 229E,HKU1,NL63,OC4 Not Detected (NOT DETECT); Human Metapneumovirus Not Detected (NOT DETECT); Human Rhinovirus/Enterovirus Detected (NOT DETECT); Influenza A Not Detected (NOT DETECT); Influenza A H1 Not Detected (NOT DETECT); Influenza A H1-2009 Not Detected (NOT DETECT); Influenza A H3 Not Detected (NOT DETECT); Influenza B Not Detected (NOT DETECT); Mycoplasma Pneumoniae Not Detected (NOT DETECT); Parainfluenza Virus Type 1 Not Detected (NOT DETECT); Parainfluenza Virus Type 2 Not Detected (NOT DETECT); Parainfluenza Virus Type 3 Not Detected (NOT DETECT); Parainfluenza Virus Type 4 Not Detected (NOT DETECT); Respiratory Syncytial Virus A Not Detected (NOT DETECT); Respiratory Syncytial Virus B Not Detected (NOT DETECT); SARS-COV-2 Not Detected (NOT DETECT)
== END 2023-01-25 16:20 | disposition home or self-care (01) ==
LOC: OPOB 11:09 → OBGYN 11:11
PROVIDERS: Visit Provider Obstetrics & Gynecology
DX: O26.899 Other specified pregnancy related conditions, unspecified trimester (principal); R05.9 Cough, unspecified; R51.9 Headache, unspecified; Z3A.00 Weeks of gestation of pregnancy not specified
CPT/HCPCS: 36415; 59025; 80053; 81001; 82570; 84156; 84550; 85025; 87486; 87581; 87633; 99211; J7030

== ENCOUNTER → 2023-02-06 15:17 | Outpatient (BNVA) | payer MEDICAID, SELFPAY | PROVIDERS: Visit Provider Obstetrics & Gynecology | DX: O09.899 Supervision of other high risk pregnancies, unspecified trimester (principal); Z3A.26 26 weeks gestation of pregnancy | CPT/HCPCS: 82950; 84315; 85025 ==

== ENCOUNTER → 2023-02-20 08:38 | Outpatient (BNVA) | payer MEDICAID, SELFPAY | PROVIDERS: Visit Provider Obstetrics & Gynecology | DX: Z34.90 Encounter for supervision of normal pregnancy, unspecified, unspecified trimester (principal) | CPT/HCPCS: 76816; 81000 ==

== ENCOUNTER → 2023-03-01 15:00 | Outpatient (BNVA) | payer MEDICAID, SELFPAY | PROVIDERS: Visit Provider Obstetrics & Gynecology | DX: O09.93 Supervision of high risk pregnancy, unspecified, third trimester (principal); Z3A.00 Weeks of gestation of pregnancy not specified | CPT/HCPCS: 81000 ==

== ENCOUNTER 2023-03-03 00:55 | Outpatient (CLI) | payer MEDICAID, SELFPAY ==
[2023-01-25 12:03] VITALS: RESP 20; TEMP 37.8
[2023-03-03] VITALS (7 sets, daily range): BP systolic 128–138; BP diastolic 58–62; PULSE 86–92; RESP 15; BMI 46.3
[2023-03-03 02:30] LABS: Add Urine Culture? No; Bacteria Urine 2+ /hpf; Bilirubin Urine Neg (Negative); Blood Urine Neg (Negative); Glucose Urine UA Trace (Normal); Ketones Urine 1+ (Negative); Leukocyte Esterase Urine Negative (Negative); Nitrate Urine Negative (Negative); Protein Urine 1+ (Negative); RBC Urine 0-4 /hpf (0-2); Specific Gravity, Urine 1.025 (1.005-1.030); Squamous Epithelial Cell Urine 15-25 /hpf (0-5); Urine Appearance Cloudy (CLEAR); Urine Color Yellow (Yellow); Urobilinogen Urine Neg (Negative); WBC Urine 0-4 /hpf (0-5); pH Urine 5 (5-7)
[2023-03-03] MEDS: acetaminophen 500 mg Tablet 1000 MG PO (02:43)
== END 2023-03-03 02:45 | disposition home or self-care (01) ==
LOC: OPOB 00:58 → OBGYN 01:02
PROVIDERS: Visit Provider Obstetrics & Gynecology
DX: O26.899 Other specified pregnancy related conditions, unspecified trimester (principal); Z3A.00 Weeks of gestation of pregnancy not specified; R10.9 Unspecified abdominal pain
CPT/HCPCS: 59025; 81001; 99211

== ENCOUNTER → 2023-03-07 09:03 | Outpatient (BNVA) | payer MEDICAID, SELFPAY | PROVIDERS: Visit Provider Obstetrics & Gynecology | DX: O09.93 Supervision of high risk pregnancy, unspecified, third trimester (principal); Z3A.00 Weeks of gestation of pregnancy not specified | CPT/HCPCS: 82950; 82951 ==

== ENCOUNTER → 2023-03-21 13:26 | Outpatient (BNVA) | payer MEDICAID, SELFPAY | PROVIDERS: Visit Provider Obstetrics & Gynecology | DX: O09.93 Supervision of high risk pregnancy, unspecified, third trimester (principal); Z3A.32 32 weeks gestation of pregnancy | CPT/HCPCS: 76815; 76819; 84315 ==

== ENCOUNTER 2023-03-23 02:26 | Outpatient (CLI) | payer MEDICAID, SELFPAY ==
[2023-03-23 02:33] VITALS: TEMP 35.7
[2023-03-23 02:34] VITALS: BP 145/64; PULSE 78
[2023-03-23 02:39] VITALS: BMI 47.7
[2023-03-23 03:13] LABS: Nitrazine Paper, PH Negative
[2023-03-23 04:05] VITALS: BP 137/69; PULSE 80
== END 2023-03-23 04:06 | disposition home or self-care (01) ==
LOC: OPOB 02:27 → OBGYN 02:28
PROVIDERS: Visit Provider Obstetrics & Gynecology
DX: O26.899 Other specified pregnancy related conditions, unspecified trimester (principal); Z3A.00 Weeks of gestation of pregnancy not specified; M54.9 Dorsalgia, unspecified
CPT/HCPCS: 59025; 83986; 99211

== ENCOUNTER → 2023-03-28 12:35 | Outpatient (BNVA) | payer MEDICAID, SELFPAY | PROVIDERS: Visit Provider Obstetrics & Gynecology | DX: O09.93 Supervision of high risk pregnancy, unspecified, third trimester (principal); Z3A.33 33 weeks gestation of pregnancy | CPT/HCPCS: 76819; 81000 ==

== ENCOUNTER 2023-03-31 18:24 | Outpatient (CLI) | payer MEDICAID, SELFPAY ==
[2023-03-31] VITALS (13 sets, daily range): BP systolic 138–196; BP diastolic 64–90; PULSE 84–96; RESP 16; TEMP 36.3–36.6; O2SAT 99–100; BMI 48.2
[2023-03-31 20:04] LABS: Basophils % 0.4 %; Eosinophils # 0.2 10^3/uL (0.0-0.8); Eosinophils % 1.8 %; Hematocrit 39.4 % (36-47); Lymphocytes # 1.9 10^3/uL (0.8-4.8); Mean Corpuscular HGB Conc 32.2 g/dL (30-55); Mean Corpuscular Volume 77.6 fl (85-98); Mean Platelet Volume 10.3 fL (7.4-10.4); Monocytes # 0.6 10^3/uL (0.2-0.9); Monocytes % 6.4 %; Neutrophils % 71.8 %; Nucleated Red Blood Cells % 0 %; Platelet Count 314 10^3/cmm (157-399); Red Blood Count 5.08 10^6/uL (3.85-5.65); Red Cell Distribution Width 13.4 % (12.1-15.1); White Blood Count 9.75 10^3/uL (3.29-11.43)
[2023-03-31 20:23] LABS: Alanine Aminotransferase 13 U/L (0-33); Albumin Level 3.2 g/dL (3.5-5.2); Alkaline Phosphatase 87 U/L (35-105); Anion Gap 16.7 (5-19); Aspartate Amino Transferase 11 U/L (0-32); Blood Urea Nitrogen 7 mg/dL (6-20); Calcium 8.7 mg/dL (8.5-10.5); Carbon Dioxide 19 mmol/L (22-29); Chloride 100 mmol/L (98-107); Globulin 3.6 g/dL (1.3-4.6); Glomerular Filtration Rate 191.5 mL/min (90-130); Glucose 251 mg/dL (65-115); Osmolality Calculated 280 mOsm/kg (285-295); Potassium 3.7 mmol/L (3.5-5.1); Sodium 132 mmol/L (136-145); Total Bilirubin 0.2 mg/dL (0.15-1.2); Total Protein 6.8 g/dL (6.6-8.7); Uric Acid 3.7 mg/dL (2.4-5.7)
[2023-03-31] MEDS: NIFEdipine ER (24 hr) 30 mg Tablet PO (20:59)
[2023-03-31 21:07] LABS: Glucose Point of Care 243 mg/dL (70-110)
[2023-03-31 22:11] LABS: Add Urine Culture? No; Add Urine Microscopic? YES; Amorphous Sediment Urine 1+ /hpf; Bacteria Urine TRACE /hpf; Bilirubin Urine Neg (Negative); Blood Urine Neg (Negative); Glucose Urine UA 4+ (Normal); Ketones Urine 1+ (Negative); Leukocyte Esterase Urine Negative (Negative); Nitrate Urine Negative (Negative); Protein Urine Trace (Negative); RBC Urine RARE /hpf (0-2); Specific Gravity, Urine 1.025 (1.005-1.030); Squamous Epithelial Cell Urine 0-4 /hpf (0-5); Urine Appearance Clear (CLEAR); Urine Color Yellow (Yellow); Urobilinogen Urine Neg (Negative); WBC Urine RARE /hpf (0-5); pH Urine 6 (5-7)
[2023-03-31 22:26] LABS: Urine Creatinine 62 mg/dL (28-217); Urine Protein Random 17 mg/dL
[2023-03-31 22:29] LABS: UPRO/UCREAT Ratio 0.27 mg/mg CR
--- NOTE | 2023-03-31 23:51 | PM.OBGYHP ---
Providers/Chief Complaint Admitting Physician: Kulwinder Cole MD Primary GRAIN DISTRIBUTOR: Kulwinder Cole MD Chief Complaint: NST - DM HPI GRAIN DISTRIBUTOR History of Present Illness 28 y.o. G1 LMP August 08, 2022 EDC May 15, 2023, c/w 5-week sono At 33 w 4 d With gestational diabetes, controlled with diet Initial 1-h glucola done 02-06-23 was 234 Started on diet FBS and 1-h postprandial accuchecks at home have been normal FBS and 1-h glucola repeated in clinic on 03-07-23 were 100 and 162 respectively Here today for scheduled biweekly NST No c/o No headaches, swelling No UCs + active movements BPs in clinic have been mostly normal, with occasionally mildly elevated systolic BP in the range of 130-140, all diastolic BPs in clinic have been normal PMHx: bipolar disorder Hypertension SHx: + smoking All: tramadol Present Details : 1 Para: 0 Medications/Allergies Home Medications Medication Instructions Recorded Confirmed Last Taken Type metformin 1,000 mg tablet 1,000 mg PO BID #60 tabs 05/05/22 03/28/23 12/31/22 Rx acetaminophen 500 mg tablet 1,000 mg PO Q6H PRN Pain 11/02/22 03/28/23 Unknown History aspirin 81 mg tablet,delayed 81 mg PO QAM 11/02/22 03/28/23 11/02/22 History release omeprazole 20 mg capsule,delayed 20 mg PO QAM 11/02/22 03/28/23 12/31/22 History release CPAP 14 setting #1 ea 12/06/22 03/28/23 Unknown Rx CPAP mask, tubing, supplies #1 ea 12/06/22 03/28/23 Unknown Rx ferrous sulfate 325 mg (65 mg 325 mg PO .q48 3 months #45 tabs 01/18/23 03/28/23 Unknown Rx iron) tablet (Feosol) blood sugar diagnostic (Accu-Chek #100 ea 02/23/23 03/28/23 Unknown Rx Guide test strips) blood-glucose meter (Accu-Chek #1 ea 02/23/23 03/28/23 Unknown Rx Guide Glucose Meter) lancets 31 gauge (Comfort Touch #100 ea 02/23/23 03/28/23 Unknown Rx Ultra Thin Lancets) nitrofurantoin macrocrystal 100 mg 100 mg PO BID #14 caps 03/06/23 03/28/23 Unknown Rx capsule Allergies Allergy/AdvReac Type Severity Reaction Status Date / Time tramadol Allergy feels like Verified 03/21/23 14:09 ants crawling PFS GRAIN DISTRIBUTOR PFSH: Medical History Bipolar 1 disorder BMI 50.0-59.9, adult Hx of transfusion of whole blood Hypertension Laceration of left knee without complication No pertinent family history Spinal headache Suicidal ideation Surgical History Hx of tonsillectomy No pertinent past surgical history Family History Mother Anemia Psychiatric illness bipolar Other Cancer Chronic kidney disease (CKD) Clotting disorder Dementia Diabetes Hyperlipidemia Hypertension Stroke Denies family history of CAD (coronary artery disease) Suicide Anesthesia complication Bleeding disorder Family history of premature coronary artery disease Lung disease Social History Smoking and tobacco status: former smoker Alcohol intake: never Substance/Drug Use: never History History History 1 Term 0 Miscarriages/Ectopic Living Children Care FAY Calculator Estimated Delivery Date Method Current WG Current Estimate 05/21/23 Ultrasound #1 32w 5d Other Estimates 05/15/23 LMP (Uncertain) 33w 4d Vitals/I&O/Wt Last Vital Signs Pulse 92 03/31/23 23:46 BP 138/64 03/31/23 23:39 Pulse Ox 99 03/31/23 23:46 Weight last 48 hrs Weight 308 lb Physical Exam Narrative: Weight 308 lbs; 5?7? BP 196 / 80 ; 189 / 87 ; 170 / 90; 175 / 77 Comfortable Lungs: clear Cor: RRR Abd: soft, nontender External monitor: no UCs heart tracing good variability, + accelerations Data 03/31/23 19:53 03/31/23 19:53 Results OB Ultrasound Ob sono 09-18-22 5 w 2 d Ob sono 11-22-22 14 weeks 02-20-23 27 w 6 d; EFW 1147 gms; WNL A&P Assessment and plan (1) Supervision of high risk , unspecified, third trimester: 33 w 4 d Fetus reassuring (2) Hypertension affecting : Elevated BPs No c/o headache, swelling at this time Gestational hypertension vs. pre-eclampsia Will draw CBC, CMP Will start 24-h urine collection Rx Procardia 30 mg XL (3) Gestational diabetes: So far, accuchecks have been normal on diet alone Will do accuchecks while in hospital Attestations Medical Necessity Statement*: patient at 33 w 4 d with elevated BPs. Coding Level of Care Code Acute Code for Chg Fwd Diagnoses Supervision of high risk , unspecified, third trimester O09.93 Hypertension affecting O16.9 Gestational diabetes O24.419 Time Spent (min) 60
[2023-04-01] VITALS (76 sets, daily range): BP systolic 124–188; BP diastolic 58–83; PULSE 74–98; RESP 16–18; TEMP 36–36.7; O2SAT 97–100
[2023-04-01 07:15] LABS: Glucose Point of Care 133 mg/dL (70-110)
--- NOTE | 2023-04-01 07:33 | PC.NURSE ---
Patient reports she is prescribed metformin BID but reports she doesn't actually take it at home at all, she increases her water intake to control her blood sugar.
[2023-04-01 12:55] LABS: Glucose Point of Care 192 mg/dL (70-110)
[2023-04-01 19:14] LABS: Glucose Point of Care 197 mg/dL (70-110)
[2023-04-01] MEDS: NIFEdipine ER (24 hr) 30 mg Tablet PO (20:21)
[2023-04-01] MEDS: insulin glargine 100 units/1 mL 10 UNIT SUBCUT (20:22)
[2023-04-02] VITALS: BP 156/89; PULSE 86
[2023-04-02 00:15] VITALS: RESP 17
[2023-04-02 01:51] LABS: Total Volume, Urine 3300 mL; Urine Total Protein 14.5 mg/dL (0-150); Urine Total Protein 24 Hour 478.5 mg/24hr (0-150)
== END 2023-04-02 00:25 | disposition home or self-care (01) ==
LOC: OPOB 18:27 → OBGYN 18:30
PROVIDERS: Visit Provider Obstetrics & Gynecology
DX: O24.419 Gestational diabetes mellitus in pregnancy, unspecified control (principal); O16.9 Unspecified maternal hypertension, unspecified trimester; Z3A.33 33 weeks gestation of pregnancy
CPT/HCPCS: 36415; 36416; 59025; 80053; 81001; 82570; 82962; 84156; 84550; 85025; 96372; 99211; J1815

== ENCOUNTER → 2023-04-04 12:37 | Outpatient (BNVA) | payer MEDICAID, SELFPAY | PROVIDERS: Visit Provider Obstetrics & Gynecology | DX: O09.93 Supervision of high risk pregnancy, unspecified, third trimester (principal); Z3A.34 34 weeks gestation of pregnancy | CPT/HCPCS: 76819; 84315 ==

== ENCOUNTER 2023-04-06 08:25 | Outpatient (CLI) | payer MEDICAID, SELFPAY ==
[2023-04-06 08:52] VITALS: BP 145/66; PULSE 92
[2023-04-06 08:59] VITALS: BMI 48.5
[2023-04-06 09:07] VITALS: BP 151/70; PULSE 82
[2023-04-06 09:22] VITALS: BP 155/80; PULSE 88
== END 2023-04-06 09:25 | disposition home or self-care (01) ==
LOC: OPOB 08:36 → OBGYN 08:37
PROVIDERS: Visit Provider Obstetrics & Gynecology
DX: O24.419 Gestational diabetes mellitus in pregnancy, unspecified control (principal); Z3A.00 Weeks of gestation of pregnancy not specified
CPT/HCPCS: 59025

== ENCOUNTER → 2023-04-11 13:33 | Outpatient (BNVA) | payer MEDICAID, SELFPAY | PROVIDERS: Visit Provider Obstetrics & Gynecology | DX: O09.93 Supervision of high risk pregnancy, unspecified, third trimester (principal); Z3A.35 35 weeks gestation of pregnancy | CPT/HCPCS: 76819; 80053; 84315; 85025 ==

== ENCOUNTER 2023-04-12 17:51 | Outpatient (CLI) | payer MEDICAID, SELFPAY ==
[2023-04-12] VITALS (27 sets, daily range): BP systolic 143–205; BP diastolic 67–89; PULSE 80–100; RESP 17–18; TEMP 35.8–36.2; BMI 48.5
--- NOTE | 2023-04-12 19:10 | USR_ITS ---
PROCEDURE INFORMATION: Exam: US Biophysical Profile Without Non-Stress Test Exam date and time: 04/12/2023 7:26 PM Age: 28 years old Clinical indication: Other: Pre-eclampsia patient. Obesity. Gdm. Bpp is ordered. G1-p0; ; Additional info: Gdm, elevated BP TECHNIQUE: Imaging protocol: US biophysical profile without non-stress testing. COMPARISON: US OB BPP wo NST 21272 04/11/2023 1:36 PM FINDINGS: heart rate: heart rate is 144 bpm. presentation: Presentation is cephalic. Amniotic fluid index: The LINA is 25.4 cm. BIOPHYSICAL PROFILE: breathing movement (BPP): 2 out of 2. body movement (BPP): 2 out of 2. tone (BPP): 2 out of 2. Amniotic fluid (BPP): 2 out of 2. US/US OB BPP wo NST 17817 IMPRESSION: 1. Biophysical profile score is 8 out of 8. This is within normal limits. 2. heart rate is 144 bpm. 3. LINA 25 cm, consistent with mild polyhydramnios.
[2023-04-12 19:26] LABS: Basophils % 0.3 %; Eosinophils # 0.1 10^3/uL (0.0-0.8); Eosinophils % 1.2 %; Hematocrit 39.3 % (36-47); Lymphocytes # 1.7 10^3/uL (0.8-4.8); Lymphocytes % 16.7 %; Mean Corpuscular HGB Conc 32.1 g/dL (30-55); Mean Corpuscular Hemoglobin 24.6 pg (27-33); Mean Corpuscular Volume 76.6 fl (85-98); Mean Platelet Volume 10.6 fL (7.4-10.4); Monocytes # 0.5 10^3/uL (0.2-0.9); Monocytes % 5.1 %; Neutrophils # 7.88 10^3/uL (1.8-7.7); Neutrophils % 76.2 %; Nucleated Red Blood Cells % 0 %; Platelet Count 292 10^3/cmm (157-399); Red Blood Count 5.13 10^6/uL (3.85-5.65); Red Cell Distribution Width 13.5 % (12.1-15.1); White Blood Count 10.34 10^3/uL (3.29-11.43)
[2023-04-12 19:57] LABS: Alanine Aminotransferase 12 U/L (0-33); Albumin Level 3.4 g/dL (3.5-5.2); Alkaline Phosphatase 91 U/L (35-105); Anion Gap 15.8 (5-19); Aspartate Amino Transferase 13 U/L (0-32); Blood Urea Nitrogen 15 mg/dL (6-20); Calcium 8.9 mg/dL (8.5-10.5); Carbon Dioxide 21 mmol/L (22-29); Chloride 103 mmol/L (98-107); Globulin 3.4 g/dL (1.3-4.6); Glomerular Filtration Rate 191.5 mL/min (90-130); Glucose 187 mg/dL (65-115); Osmolality Calculated 288 mOsm/kg (285-295); Potassium 3.8 mmol/L (3.5-5.1); Sodium 136 mmol/L (136-145); Total Bilirubin 0.2 mg/dL (0.15-1.2); Total Protein 6.8 g/dL (6.6-8.7); Uric Acid 4.4 mg/dL (2.4-5.7); Urine Creatinine 168 mg/dL (28-217)
[2023-04-12 19:58] LABS: UPRO/UCREAT Ratio 1.06 mg/mg CR; Urine Protein Random 178 mg/dL
[2023-04-12 20:02] LABS: Bacteria Urine 2+ /hpf; Bilirubin Urine Neg (Negative); Blood Urine Neg (Negative); Calcium Oxalate Crystals Urine RARE /hpf; Glucose Urine UA 1+ (Normal); Ketones Urine 1+ (Negative); Leukocyte Esterase Urine Negative (Negative); Mucus Urine TRACE /hpf; Nitrate Urine Negative (Negative); Protein Urine 2+ (Negative); RBC Urine 0-4 /hpf (0-2); Urine Appearance Hazy (CLEAR); Urine Color Yellow (Yellow); Urobilinogen Urine Norm (Negative); WBC Urine 0-4 /hpf (0-5); pH Urine 6 (5-7)
[2023-04-12 20:03] LABS: Add Urine Culture? No; Amorphous Sediment Urine TRACE /hpf
[2023-04-12 20:18] LABS: Glucose Point of Care 215 mg/dL (70-110)
[2023-04-12] MEDS: labetalol 5 mg/mL SDV 20mL 20 MG IVP (20:58)
[2023-04-12] MEDS: labetalol 5 mg/mL SDV 20mL 40 MG IVP ×2 (21:14→22:40)
[2023-04-12] MEDS: acetaminophen 500 mg Tablet 1000 MG PO (22:01)
[2023-04-12] MEDS: ampicillin 2,000 MG in sodium chloride 0.9% (plus) 50 ML 100 MG IV (23:07)
[2023-04-12] MEDS: magnesium sulfate premix 4 GM/100 ML PREMIX IV (23:11)
[2023-04-12] MEDS: betamethasone susp 6 mg/mL 1 mL (per mL) 12 MG IM (23:19)
[2023-04-12] MEDS: magnesium sulfate premix 20 GM/500 ML BAG IV (23:35)
[2023-04-12] MEDS: lactated ringers 1,000 ML 75 ML IV (23:51)
[2023-04-13] VITALS: BP 162/72; PULSE 89; RESP 19; TEMP 36.2; O2SAT 97
[2023-04-13] MEDS: labetalol 5 mg/mL SDV 20mL 40 MG IVP (00:10)
[2023-04-13 00:14] VITALS: BP 162/72; PULSE 88
--- NOTE | 2023-04-13 00:52 | PC.NURSE ---
[address] [facility] arrived and received report assuming care.
== END 2023-04-13 00:15 | disposition intermediate care facility (04) ==
LOC: OPOB 18:12 → OBGYN 18:16
PROVIDERS: Obstetrics & Gynecology; Visit Provider Pharmacist
DX: O24.419 Gestational diabetes mellitus in pregnancy, unspecified control (principal); Z3A.00 Weeks of gestation of pregnancy not specified
CPT/HCPCS: 36415; 36416; 51702; 59025; 76819; 80053; 81001; 82570; 82962; 84156; 84550; 85025; 96372; 96374; 96376; 99211; J0290; J0702; J3475; J3490; J7120

== ENCOUNTER → 2023-05-18 10:41 | Outpatient (BNVA) | payer MEDICAID, SELFPAY | PROVIDERS: Visit Provider Registered Nurse Neonatal Intensive Care | DX: J02.9 Acute pharyngitis, unspecified (principal); B34.9 Viral infection, unspecified | CPT/HCPCS: 87880 ==

== ENCOUNTER → 2023-06-07 08:17 | Outpatient (BNVA) | payer MEDICAID, SELFPAY | PROVIDERS: Visit Provider Nurse Practitioner Family | DX: R05.9 Cough, unspecified (principal); J06.9 Acute upper respiratory infection, unspecified | CPT/HCPCS: 87426 ==

== ENCOUNTER → 2023-06-12 15:57 | Outpatient (BNVA) | payer MEDICAID, SELFPAY | PROVIDERS: Visit Provider Obstetrics & Gynecology | DX: Z00.00 Encounter for general adult medical examination without abnormal findings (principal); Z79.899 Other long term (current) drug therapy | CPT/HCPCS: 85025 ==

== ENCOUNTER → 2023-06-19 18:56 | Outpatient (BNVA) | payer MEDICAID, SELFPAY | PROVIDERS: Visit Provider Registered Nurse Neonatal Intensive Care | DX: R50.9 Fever, unspecified (principal) | CPT/HCPCS: 87400 ==

== ENCOUNTER → 2023-07-03 15:48 | Outpatient (BNVA) | payer MEDICAID, SELFPAY | PROVIDERS: PCP Family Medicine; Visit Provider Family Medicine | DX: R10.13 Epigastric pain (principal); E11.9 Type 2 diabetes mellitus without complications; F31.9 Bipolar disorder, unspecified; K21.9 Gastro-esophageal reflux disease without esophagitis; G47.33 Obstructive sleep apnea (adult) (pediatric); Z72.0 Tobacco use | CPT/HCPCS: 80053; 83036 ==

== ENCOUNTER → 2023-07-09 08:50 | Outpatient (BNVA) | payer MEDICAID, SELFPAY | PROVIDERS: PCP Family Medicine; Visit Provider Obstetrics & Gynecology | DX: N92.6 Irregular menstruation, unspecified (principal) | CPT/HCPCS: 81025 ==

== ENCOUNTER 2023-08-01 03:24 | Emergency (ER) | payer MEDICAID, SELFPAY ==
[2023-08-01 03:26] VITALS: BP 163/88; PULSE 93; RESP 18; TEMP 36.7; O2SAT 99; BMI 44.3
--- NOTE | 2023-08-01 03:30 | ECG_ITS ---
[facility] Test Date: 2023-08-01 Pat Name: Siomara Edwards Department: Room: Gender: Female Enterprise Application Analyst: : 1995 Requested By: Henry Martinez Order Number: [id number] James MD: Omar Sanchez M.D. Measurements Intervals [place] Rate: 92 P: 30 MT: 187 QRS: 61 QRSD: 92 T: 7 QT: 361 QTc: 447 Interpretive Statements SINUS RHYTHM NONSPECIFIC T-WAVE ABNORMALITY Compared to ECG 09/14/2022 09:45:24 No significant changes Electronically Signed On 08-01-2023 7:18:13 SHIFT NURSE MANAGER by Omar Sanchez M.D. [email or web address]
--- NOTE | 2023-08-01 03:31 | XRR_ITS ---
PROCEDURE INFORMATION: Exam: XR Chest Exam date and time: 08/01/2023 3:39 AM Age: 28 years old Clinical indication: Chest wall pain; Additional info: Chest pain TECHNIQUE: Imaging protocol: Radiologic exam of the chest. Views: 1 view. COMPARISON: CR XR chest 1V portable [id number] 09/14/2022 9:56 AM FINDINGS: Lungs: Unremarkable. No consolidation. Pleural spaces: Unremarkable. No pleural effusion. No pneumothorax. Heart/Mediastinum: Unremarkable. No cardiomegaly. Bones/joints: Unremarkable. XR/XR chest 1V portable [id number] IMPRESSION: No acute cardiopulmonary findings. No displaced rib fractures.
--- NOTE | 2023-08-01 03:36 | ED_ITS ---
HPI - Chest Pain 2 General: Chief Complaint: Chest Pain Stated Complaint: cp Time Seen by Provider: 08/01/23 03:25 History of Present Illness: Patient presents to the ER complaining of chest pain and arm pain that woke her from sleep approximately at midnight. Patient says more of a squeezing in her arm than anything. Patient denies any shortness of breath nausea vomiting diaphoresis or cardiac history. Patient does have high blood pressure and is on Procardia. Patient is asking for morphine by name. Patient does not appear in acute distress and appears nontoxic. Nothing seems to make this pain better or make it worse. Patient has never had any pain like this before. Review of Systems 2 General: Reports: 10 or more systems reviewed and unremarkable except in HPI and below PFSH ED 2 PFSH: Medical History Spinal headache Suicidal ideation Hx of transfusion of whole blood BMI 50.0-59.9, adult Hypertension Bipolar 1 disorder Laceration of left knee without complication No pertinent family history Surgical History Hx of tonsillectomy No pertinent past surgical history Family History Mother Anemia Psychiatric illness bipolar Other Cancer Chronic kidney disease (CKD) Clotting disorder Dementia Diabetes Hyperlipidemia Hypertension Stroke Denies family history of CAD (coronary artery disease) Suicide Anesthesia complication Bleeding disorder Family history of premature coronary artery disease Lung disease Social History Smoking and tobacco/nicotine status: former use of tobacco/nicotine Alcohol intake: never Substance/Drug Use: never Female Reproductive History: Date of last menstrual period: 07/11/23 Physical Exam 2 Const: COMMON NORMALS: no acute distress, average body habitus, patient oriented x3, no limitations, healthy appearing, alert and well nourished HENMT: COMMON NORMALS: normocephalic, atraumatic, hearing grossly normal bilaterally, external ears normal, Normal external nose present, moist oral mucous membranes and oropharynx normal HEAD & SCALP: normocephalic and atraumatic NOSE: Normal external nose present EXTERNAL EAR: Yes external ears normal Neck/C-Spine: COMMON NORMALS: full ROM, no lymphadenopathy, supple, no meningeal signs, no JVD and Thyroid normal THYROID: Thyroid normal Chest: COMMONS NORMALS: normal inspection of the chest and normal palpation of entire chest wall Resp: COMMON NORMALS: normal respiratory effort, No retractions, No use of accessory muscles and clear to auscultation bilaterally AUSCULTATION: clear to auscultation bilaterally Cardio: COMMON NORMALS: no JVD, regular rate, regular rhythm, S1 normal heart sound present, S2 normal heart sound present, No gallops present (Cardio), No clicks present (Cardio), No murmurs present (Cardio) and No rub (Cardio) R ATE: regular rate RHYTHM: regular rhythm HEART SOUNDS: S1 normal heart sound present and S2 normal heart sound present GI: COMMON NORMALS: Normal to inspection, nondistended, normoactive bowel sounds present, Soft to palpation, non-tender, No hepatosplenomegaly present and no masses PALPATION: Yes Soft to palpation and Yes No hepatosplenomegaly present Neuro: COMMON NORMALS: patient oriented x3 SENSORIUM/ORIENTATION: Yes alert MENINGEAL SIGNS: Yes no meningeal signs Course 2 Vital Signs: Vital signs: Vital Signs Temperature 98.1 F 08/01/23 03:26 Pulse Rate 93 08/01/23 03:43 Respiratory Rate 16 08/01/23 03:43 Blood Pressure 163/88 08/01/23 03:43 Pulse Oximetry 97 08/01/23 03:43 Oxygen Delivery Me thod Room Air 08/01/23 03:26 MDM - Chest Pain Medical Decision Making Patient presents to the ER with atypical type chest pain on her right side radiating to her right arm like a squeezing. Patient was worked up in a standard chest pain fashion with serial EKGs, cardiac enzymes and chest x-ray, all of which were essentially benign in nature and do not point to an acute cardiac cause. Is felt that she has a noncardiac chest pain and patient be discharged to follow-up with her PCP for further evaluation. Differential Diagnosis Unlikely acute massive pulmonary embolism, acute respiratory failure, acute myocardial infarction, cardiac arrest or sudden cardiac Medical Records I reviewed the patient's medical records. Lab Data I reviewed the patient's lab results. 08/01/23 03:32 08/01/23 03:32 Radiology Impressions Chest X-Ray 08/01/23 03:31 IMPRESSION: No acute cardiopulmonary findings. No displaced rib fractures. Laboratory Results WBC 9.62 10^3/uL (3.29-11.43) 08/01/23 03:32 RBC 5.65 10^6/uL (3.85-5.65) 08/01/23 03:32 Hgb 12.90 g/dL (11.27-16.99) 08/01/23 03:32 Hct 41.1 % (36-47) 08/01/23 03:32 MCV 72.7 fl (85-98) L 08/01/23 03:32 MCH 22.8 pg (27-33) L 08/01/23 03:32 MCHC 31.4 g/dL (30-55) 08/01/23 03:32 RDW 14.5 % (12.1-15.1) 08/01/23 03:32 Plt Count 291 10^3/cmm (157-399) 08/01/23 03:32 MPV 9.3 fL (7.4-10.4) 08/01/23 03:32 Neut % (Auto) 63.5 % 08/01/23 03:32 Lymph % (Auto) 18.9 % 08/01/23 03:32 [place] % (Auto) 5.6 % 08/01/23 03:32 Eos % (Auto) 10.9 % 08/01/23 03:32 Baso % (Auto) 0.6 % 08/01/23 03:32 Neut # (Auto) 6.10 10^3/uL (1.8-7.7) 08/01/23 03:32 Lymph # (Auto) 1.8 10^3/uL (0.8-4.8) 08/01/23 03:32 [place] # (Auto) 0.5 10^3/uL (0.2-0.9) 08/01/23 03:32 Eos # (Auto) 1.1 10^3/uL (0.0-0.8) H 08/01/23 03:32 Baso # (Auto) 0.1 10^3/uL (0.0-0.1) 08/01/23 03:32 Nucleated RBC % (auto) 0 % 08/01/23 03:32 Nucleated RBCs # 0.0 /100WBC 08/01/23 03:32 Sodium 135 mmol/L (136-145) L 08/01/23 03:32 Potassium 3.8 mmol/L (3.5-5.1) 08/01/23 03:32 Chloride 101 mmol/L (98-107) 08/01/23 03:32 Carbon Dioxide 20 mmol/L (22-29) L 08/01/23 03:32 Anion Gap 17.8 (5-19) 08/01/23 03:32 BUN 11 mg/dL (6-20) 08/01/23 03:32 Creatinine 0.3 mg/dL (0.5-0.9) L 08/01/23 03:32 GFR Calculation 266.9 mL/min (90-130) H 08/01/23 03:32 Glucose 148 mg/dL (65-115) H 08/01/23 03:32 Calculated Osmolality 282 mOsm/kg (285-295) L 08/01/23 03:32 Calcium 8.4 mg/dL (8.5-10.5) L 08/01/23 03:32 Total Bilirubin 0.3 mg/dL (0.15-1.2) 08/01/23 03:32 AST 27 U/L (0-32) 08/01/23 03:32 ALT 40 U/L (0-33) H 08/01/23 03:32 Alkaline Phosphatase 74 U/L (35-105) 08/01/23 03:32 Troponin T Baseline < 6 ng/L (0-10) 08/01/23 03:32 Total Protein 7.7 g/dL (6.6-8.7) 08/01/23 03:32 Albumin 4.0 g/dL (3.5-5.2) 08/01/23 03:32 Globulin 3.7 g/dL (1.3-4.6) 08/01/23 03:32 All radiology interpretation(s) finalized by discharge EKG Data EKG 1: I personally reviewed and interpreted this EKG as follows: EKG interpretation date: 08/01/23 EKG interpretation time: 03:30 Prior EKG tracings: available for review Interpretation: Ventricular rate 92 beats minute, MI interval 187, QRS duration 92, QTc of 410, sinus rhythm, nonspecific T wave abnormality Discharge Plan Discharge Patient Disposition: Home Clinical Impression: Non-cardiac chest pain Condition: Stable Prescriptions: No Action sucralfate [Carafate] 1 gram tablet 1 g PO BID Qty: 60 0RF omeprazole 40 mg capsule,delayed release(DR/EC) 40 mg PO QAM Qty: 60 0RF medroxyprogesterone [Depo-Provera] 150 mg/mL suspension 150 mg IM ONCE Qty: 1 0RF Rx Instructions: patient is given second DMPA early due to bleeding; and patient does not want other options of treatment, such as OCs medroxyprogesterone [Depo-Provera] 150 mg/mL suspension 150 mg IM ONCE Qty: 1 0RF Rx Instructions: patient is given second DMPA early due to bleeding; and patient does not want other options, such as OCs medroxyprogesterone [Depo-Provera] 150 mg/mL suspension 150 mg IM .q 3 months Qty: 1 4RF (DME) CPAP 14 setting See Rx Instructions .ROUTE .MEDSUPPLY Qty: 1 0RF Rx Instructions: As directed (DME) CPAP mask, tubing, supplies See Rx Instructions .ROUTE .MEDSUPPLY Qty: 1 1RF Rx Instructions: As directed acetaminophen 500 mg Tablet 1,000 mg PO Q6H PRN (Reason: Pain) nifedipine [Procardia XL] 30 mg tablet extended release 24hr 30 mg PO DAILY Qty: 30 0RF Discharge Orders: Discharge ED (Routine); Ordered 08/01/23 Ordered By: Henry Martinez Referrals: Kavon Gaines MD [Primary Care Provider] - 1 week Patient Instructions: Noncardiac Chest Pain (ED) Activity Restrictions/Additional Instructions: Your evaluation in the ER did not point to a cardiac cause of your chest pain. It is felt to be noncardiac in nature. Please follow-up with your family practice physician for further evaluation testing. If your pain worsens or returns please return to the ER for further testing. Coding Level of Care Code ED Commercial Teller for Kimmie Hedrick
[2023-08-01] MEDS: ketorolac 30 mg/mL INJ IVP (03:38)
[2023-08-01 03:40] LABS: Basophils # 0.1 10^3/uL (0.0-0.1); Basophils % 0.6 %; Eosinophils # 1.1 10^3/uL (0.0-0.8); Eosinophils % 10.9 %; Hematocrit 41.1 % (36-47); Lymphocytes # 1.8 10^3/uL (0.8-4.8); Lymphocytes % 18.9 %; Mean Corpuscular HGB Conc 31.4 g/dL (30-55); Mean Corpuscular Hemoglobin 22.8 pg (27-33); Mean Corpuscular Volume 72.7 fl (85-98); Mean Platelet Volume 9.3 fL (7.4-10.4); Monocytes # 0.5 10^3/uL (0.2-0.9); Monocytes % 5.6 %; Neutrophils % 63.5 %; Nucleated Red Blood Cells % 0 %; Platelet Count 291 10^3/cmm (157-399); Red Blood Count 5.65 10^6/uL (3.85-5.65); Red Cell Distribution Width 14.5 % (12.1-15.1); White Blood Count 9.62 10^3/uL (3.29-11.43)
[2023-08-01 03:43] VITALS: BP 163/88; PULSE 93; RESP 16; O2SAT 97
[2023-08-01 04:03] LABS: Troponin(5th) Baseline < 6 ng/L (0-10)
[2023-08-01 04:05] LABS: Alanine Aminotransferase 40 U/L (0-33); Alkaline Phosphatase 74 U/L (35-105); Anion Gap 17.8 (5-19); Aspartate Amino Transferase 27 U/L (0-32); Blood Urea Nitrogen 11 mg/dL (6-20); Calcium 8.4 mg/dL (8.5-10.5); Carbon Dioxide 20 mmol/L (22-29); Chloride 101 mmol/L (98-107); Globulin 3.7 g/dL (1.3-4.6); Glomerular Filtration Rate 266.9 mL/min (90-130); Glucose 148 mg/dL (65-115); Osmolality Calculated 282 mOsm/kg (285-295); Potassium 3.8 mmol/L (3.5-5.1); Sodium 135 mmol/L (136-145); Total Bilirubin 0.3 mg/dL (0.15-1.2); Total Protein 7.7 g/dL (6.6-8.7)
[2023-08-01 05:55] VITALS: BP 120/95; PULSE 93; RESP 16; TEMP 36.7; O2SAT 97
[2023-08-01 05:58] LABS: Troponin 5 2HR Delta 0.00001 ABS# (0-10)
== END 2023-08-01 05:56 | disposition home or self-care (01) ==
PROVIDERS: Emergency Provider Emergency Medicine; PCP Family Medicine
DX: R07.89 Other chest pain (principal); Z87.891 Personal history of nicotine dependence; I10 Essential (primary) hypertension
CPT/HCPCS: 71045; 80053; 84484; 85025; 93005; 96374; 99285; J1885

== ENCOUNTER 2023-08-06 20:45 | Emergency (ER) | payer MEDICAID, SELFPAY ==
[2023-08-06 20:58] VITALS: BP 166/84; PULSE 96; RESP 14; TEMP 36.8; O2SAT 96
--- NOTE | 2023-08-06 21:06 | W.ED.ABDPA2 ---
HPI - Abdominal Pain General: Chief Complaint: Abdominal Pain Stated Complaint: pain r side Time Seen by Provider: 08/06/23 21:06 History of Present Illness: 28-year-old female presents emergency department complaints abdominal pain for the previous 3 days. She also states she has had 2 episodes of nausea and vomiting. She was seen [facility] and tested for urinary tract infection and I have reviewed her results and they are negative. She has recently been here to this emergency department and seen for a typical chest pain. Patient states that she has left and right lower abdominal pain that radiates around to her low back area. She describes it as a 6 out of 10 sharp and stabbing. She states that any type of bending or attempting to have a bowel movement increases her pain. Associated Symptoms: Reports nausea and vomiting Review of Systems General: Reports: 10 or more systems reviewed and unremarkable except in HPI and below GI: Reports: abdominal pain, nausea and vomiting [facility] ED PFSH: Medical History Spinal headache Suicidal ideation Hx of transfusion of whole blood BMI 50.0-59.9, adult Hypertension Bipolar 1 disorder Laceration of left knee without complication No pertinent family history Surgical History Hx of tonsillectomy No pertinent past surgical history Family History Mother Anemia Psychiatric illness bipolar Other Cancer Chronic kidney disease (CKD) Clotting disorder Dementia Diabetes Hyperlipidemia Hypertension Stroke Denies family history of CAD (coronary artery disease) Suicide Anesthesia complication Bleeding disorder Family history of premature coronary artery disease Lung disease Social History Smoking and tobacco/nicotine status: former use of tobacco/nicotine Alcohol intake: never Substance/Drug Use: never Physical Exam Const: COMMON NORMALS: no acute distress, patient oriented x3 and alert HENMT: COMMON NORMALS: normocephalic and atraumatic HEAD & SCALP: normocephalic and atraumatic Eye: COMMON NORMALS: Equal, round and reactive pupils present and EOMs intact bilaterally PUPIL: Yes Equal, round and reactive pupils present Resp: COMMON NORMALS: normal respiratory effort, No use of accessory muscles and clear to auscultation bilaterally AUSCULTATION: clear to auscultation bilaterally Cardio: COMMON NORMALS: regular rate, regular rhythm, S1 normal heart sound present and S2 normal heart sound present RATE: regular rate RHYTHM: regular rhythm HEART SOUNDS: S1 normal heart sound present and S2 normal heart sound present GI: COMMON NORMALS: Soft to palpation PALPATION: Yes Soft to palpation and Yes Tenderness to palpation present (GI) Details: LLQ and RLQ : COMMON NORMALS: Yes no CVA tenderness BLADDER/KIDNEY EXAM: Yes no CVA tenderness Back/Pelvis: COMMON NORMALS: no CVA tenderness and thoracic and lumbar spine normal to inspection Extremity: COMMON NORMALS: normal to inspection, full ROM and capillary refill normal Neuro: COMMON NORMALS: patient oriented x3 SENSORIUM/ORIENTATION: Yes alert Psych: COMMON NORMALS: mental status grossly normal, Normal thought process present and cooperative THOUGHT PROCESS: Normal thought process present Skin: COMMON NORMALS: no rashes or lesions noted and no wounds GENERAL SKIN EXAM: no rashes or lesions noted Course Vital Signs: Vital signs: Vital Signs Temperature 98.3 F 08/06/23 20:58 Pulse Rate 96 08/06/23 20:58 Respiratory Rate 14 08/06/23 20:58 Blood Pressure 166/84 08/06/23 20:58 Pulse Oximetry 96 08/06/23 20:58 MDM - Abdominal Pain Medical Decision Making Physical exam completed and documented, I will obtain laboratory evaluation to include a CBC, CMP, and a CT scan of the patient's abdomen pelvis to evaluate for possible differential diagnosis of bowel obstruction, incarcerated hernia, abdominal wall strain, abdominal wall hematoma, constipation, acute appendicitis and enteritis. I reviewed the patient's previous medical record and reviewed the patient's urinalysis that was [facility]. Medical Records I reviewed the patient's medical records. Lab Data I reviewed the patient's lab results. 08/06/23 21:26 08/06/23 21:26 Labs/Radiology: Radiology Impressions Abdomen/Pelvis CT 08/06/23 21:07 IMPRESSION: 1. 5.5 x 4.7 x 3.4 cm left ovarian cyst which may have partial septation. 2. 15.6 x 18.1 x 11.6 cm moderate to large splenomegaly. 3. Normal appendix. Laboratory Results WBC 9.89 10^3/uL (3.29-11.43) 08/06/23 21: RBC 5.81 10^6/uL (3.85-5.65) H 08/06/23 21: Hgb 13.30 g/dL (11.27-16.99) 08/06/23 21: Hct 42.4 % (36-47) 08/06/23 21: MCV 73.0 fl (85-98) L 08/06/23 21: MCH 22.9 pg (27-33) L 08/06/23 21: MCHC 31.4 g/dL (30-55) 08/06/23 21: RDW 14.9 % (12.1-15.1) 08/06/23: Plt Count 296 10^3/cmm (157-399) 08/06/23 21: MPV 9.5 fL (7.4-10.4) 08/06/23 21: Neut % (Auto) 59.6 % 08/06/23 21: Lymph % (Auto) 19.8 % 08/06/23 21: [place] % (Auto) 5.3 % 08/06/23 21: Eos % (Auto) 13.9 % 08/06/23: Baso % (Auto) 0.7 % 08/06/23: Neut # (Auto) 5.90 10^3/uL (1.8-7.7) 08/06/23: Lymph # (Auto) 2.0 10^3/uL (0.8-4.8) 08/06/23 21: [place] # (Auto) 0.5 10^3/uL (0.2-0.9) 08/06/23 21: Eos # (Auto) 1.4 10^3/uL (0.0-0.8) H 08/06/23 21: Baso # (Auto) 0.1 10^3/uL (0.0-0.1) 08/06/23: Nucleated RBC % (auto) 0 % 08/06/23: Nucleated RBCs # 0.0 /100WBC 08/06/23 21: Sodium 137 mmol/L (136-145) 08/06/23 21:26 Potassium 3.7 mmol/L (3.5-5.1) 08/06/23 21:26 Chloride 102 mmol/L (98-107) 08/06/23 21:26 Carbon Dioxide 23 mmol/L (22-29) 08/06/23 21:26 Anion Gap 15.7 (5-19) 08/06/23 21:26 BUN 12 mg/dL (6-20) 08/06/23 21:26 Creatinine 0.4 mg/dL (0.5-0.9) L 08/06/23 21:26 GFR Calculation 191.5 mL/min (90-130) H 08/06/23 21:26 Glucose 132 mg/dL (65-115) H 08/06/23 21:26 Calculated Osmolality 286 mOsm/kg (285-295) 08/06/23 21:26 Calcium 8.9 mg/dL (8.5-10.5) 08/06/23 21:26 Total Bilirubin 0.3 mg/dL (0.15-1.2) 08/06/23 21:26 AST 27 U/L (0-32) 08/06/23 21:26 ALT 36 U/L (0-33) H 08/06/23 21:26 Alkaline Phosphatase 80 U/L (35-105) 08/06/23 21:26 Total Protein 8.1 g/dL (6.6-8.7) 08/06/23 21:26 Albumin 4.0 g/dL (3.5-5.2) 08/06/23 21:26 Globulin 4.1 g/dL (1.3-4.6) 08/06/23 21:26 All radiology interpretation(s) finalized by discharge Discharge Plan Discharge Patient Disposition: Home Clinical Impression: Abdominal pain Qualifiers: Abdominal location: right lower quadrant Qualified Code(s): R10.31 - Right lower quadrant pain Ovarian cyst Qualifiers: Laterality: left Qualified Code(s): N83.202 - Unspecified ovarian cyst, left side Condition: Stable Prescriptions: No Action sucralfate [Carafate] 1 gram tablet 1 g PO BID Qty: 60 0RF omeprazole 40 mg capsule,delayed release(DR/EC) 40 mg PO QAM Qty: 60 0RF medroxyprogesterone [Depo-Provera] 150 mg/mL suspension 150 mg IM ONCE Qty: 1 0RF Rx Instructions: patient is given second DMPA early due to bleeding; and patient does not want other options of treatment, such as OCs medroxyprogesterone [Depo-Provera] 150 mg/mL suspension 150 mg IM ONCE Qty: 1 0RF Rx Instructions: patient is given second DMPA early due to bleeding; and patient does not want other options, such as OCs medroxyprogesterone [Depo-Provera] 150 mg/mL suspension 150 mg IM .q 3 months Qty: 1 4RF (DME) CPAP 14 setting See Rx Instructions .ROUTE .MEDSUPPLY Qty: 1 0RF Rx Instructions: As directed (DME) CPAP mask, tubing, supplies See Rx Instructions .ROUTE .MEDSUPPLY Qty: 1 1RF Rx Instructions: As directed acetaminophen 500 mg Tablet 1,000 mg PO Q6H PRN (Reason: Pain) nifedipine [Procardia XL] 30 mg tablet extended release 24hr 30 mg PO DAILY Qty: 30 0RF Discharge Orders: Discharge ED (Routine); Ordered 08/06/23 Ordered By: Iftikhar Juarez Referrals: Kulwinder Cole MD [Physician] - Kavon Gaines MD [Primary Care Provider] - Discharge Diet: Usual diet Discharge Activity: Resume usual activity Patient Instructions: Abdominal Pain (ED), Opioid Safety, Pain Management Activity Restrictions/Additional Instructions: Activity Restrictions/Additional Instructions: Thank you for choosing [facility] for your healthcare needs today. Please realize that you were seen in the Emergency Department and that we are providing you with an emergency medical screening exam and this may not be a complete and all inclusive of all the testing and or medical work-up that you may need to determine your ailment or severity of your illness. It is very important that you follow-up as instructed with your Primary care provider or Specialist for additional evaluation and to discuss your medical treatment plan. You may return to the Emergency Department should you have concerns or if your condition changes or worsens in any way. Coding Level of Care Code ED Sour Bleaching Pleater for Kimmie Hedrick
--- NOTE | 2023-08-06 21:07 | CTR_ITS ---
PROCEDURE INFORMATION: Exam: CT Abdomen And Pelvis With Contrast Exam date and time: 08/06/2023 9:29 PM Age: 28 years old Clinical indication: Abdominal pain; Localized; Right lower quadrant (rlq); Patient HX: C/O rlq pain; Additional info: Rlq abd pain, urine hcg on 08/01/23 negative TECHNIQUE: Imaging protocol: Computed tomography of the abdomen and pelvis with contrast. Radiation optimization: All CT scans at this facility use at least one of these dose optimization techniques: automated exposure control; mA and/or kV adjustment per patient size (includes targeted exams where dose is matched to clinical indication); or iterative reconstruction. Contrast material: OMNI 350; Contrast volume: 100 ml; Contrast route: INTRAVENOUS (IV); COMPARISON: CR XR KUB [id number] 03/18/2022 1:09 AM RADIATION DOSE METRICS: Total DLP (mGy-cm): 1672.83 FINDINGS: Liver: Normal. No mass. Gallbladder and bile ducts: Normal. No calcified stones. No ductal dilation. Pancreas: Normal. No ductal dilation. Spleen: 15.6 x 18.1 x 11.6 cm moderate to large splenomegaly. Adrenal glands: Normal. No mass. Kidneys and ureters: Normal. No hydronephrosis. Stomach and bowel: Unremarkable. No obstruction. No mucosal thickening. Appendix: Normal appendix. Intraperitoneal space: Unremarkable. No free air. No significant fluid collection. Vasculature: Unremarkable. No abdominal aortic aneurysm. Lymph nodes: Unremarkable. No enlarged lymph nodes. Urinary bladder: Unremarkable as visualized. Reproductive: 5.5 x 4.7 x 3.4 cm left ovarian cyst which may have partial septation. Bones/joints: Unremarkable. No acute fracture. Soft tissues: Unremarkable. CT/CT abdomen pelvis w con* [id number] IMPRESSION: 1. 5.5 x 4.7 x 3.4 cm left ovarian cyst which may have partial septation. 2. 15.6 x 18.1 x 11.6 cm moderate to large splenomegaly. 3. Normal appendix.
[2023-08-06 21:34] LABS: Basophils # 0.1 10^3/uL (0.0-0.1); Basophils % 0.7 %; Eosinophils # 1.4 10^3/uL (0.0-0.8); Eosinophils % 13.9 %; Hematocrit 42.4 % (36-47); Lymphocytes % 19.8 %; Mean Corpuscular HGB Conc 31.4 g/dL (30-55); Mean Corpuscular Hemoglobin 22.9 pg (27-33); Mean Platelet Volume 9.5 fL (7.4-10.4); Monocytes # 0.5 10^3/uL (0.2-0.9); Monocytes % 5.3 %; Neutrophils % 59.6 %; Nucleated Red Blood Cells % 0 %; Platelet Count 296 10^3/cmm (157-399); Red Blood Count 5.81 10^6/uL (3.85-5.65); Red Cell Distribution Width 14.9 % (12.1-15.1); White Blood Count 9.89 10^3/uL (3.29-11.43)
[2023-08-06] MEDS: iohexol 350 mg/mL 500 mL Btl (per mL) IV (21:34)
[2023-08-06 21:56] LABS: Alanine Aminotransferase 36 U/L (0-33); Alkaline Phosphatase 80 U/L (35-105); Anion Gap 15.7 (5-19); Aspartate Amino Transferase 27 U/L (0-32); Blood Urea Nitrogen 12 mg/dL (6-20); Calcium 8.9 mg/dL (8.5-10.5); Carbon Dioxide 23 mmol/L (22-29); Chloride 102 mmol/L (98-107); Globulin 4.1 g/dL (1.3-4.6); Glomerular Filtration Rate 191.5 mL/min (90-130); Glucose 132 mg/dL (65-115); Osmolality Calculated 286 mOsm/kg (285-295); Potassium 3.7 mmol/L (3.5-5.1); Sodium 137 mmol/L (136-145); Total Bilirubin 0.3 mg/dL (0.15-1.2); Total Protein 8.1 g/dL (6.6-8.7)
== END 2023-08-06 22:56 | disposition home or self-care (01) ==
PROVIDERS: Emergency Provider Internal Medicine; PCP Family Medicine
DX: R10.31 Right lower quadrant pain (principal); N83.202 Unspecified ovarian cyst, left side; Z87.891 Personal history of nicotine dependence; I10 Essential (primary) hypertension
CPT/HCPCS: 74177; 80053; 84315; 85025; 87086; 99285; Q9967

== ENCOUNTER 2023-08-08 07:45 | Outpatient (CLI) | payer MEDICAID, SELFPAY ==
--- NOTE | 2023-08-08 08:00 | US_ITS ---
WS: [id number] Complete ABDOMINAL ULTRASOUND HISTORY: epigastric pain COMPARISON: 08/06/2023 CT Liver: 21.5 cm in length. Liver is markedly enlarged. No mass. No bile duct dilatation. Mild coarse e chotexture. Portal Vein: Normal hepatopetal flow with monophasic waveform. Gallbladder: Normally distended gallbladder with no stones or wall thickening. CBD: 0.3 cm Pancreas: Normal size and echogenicity. Right kidney: 13.2 cm x 7.0 x 4.8 cm. Cortex:1.1 cm. Normal size and echogenicity. No hydronephrosis or mass. Left kidney: 15.6 cm x 6.8 cm x 5.2 cm. Cortex: 1.3 cm. Normal size and echogenicity. No hydronephrosis or mass. Spleen: 14.2 cm in length. Otherwise negative. Aorta and IVC: Unremarkable abdominal aorta and IVC. Impression: 1. Normal gallbladder. 2. Markedly enlarged liver with mild hepatic steatosis. No mass. 3. Mild splenomegaly at 14.2 cm.
== END 2023-08-08 07:46 | disposition home or self-care (01) ==
LOC: RAD 07:46
PROVIDERS: PCP Family Medicine; Visit Provider Family Medicine
DX: R10.13 Epigastric pain (principal); K76.0 Fatty (change of) liver, not elsewhere classified; R16.2 Hepatomegaly with splenomegaly, not elsewhere classified
CPT/HCPCS: 76700

== ENCOUNTER 2023-09-16 00:04 | Emergency (ER) | payer MEDICAID, SELFPAY ==
[2023-09-16 00:11] VITALS: BP 172/93; PULSE 84; RESP 17; TEMP 36.5; O2SAT 97; BMI 44.7
--- NOTE | 2023-09-16 01:35 | USR_ITS ---
PROCEDURE INFORMATION: Exam: US Pelvis, Transvaginal Exam date and time: 09/16/2023 3:18 AM Age: 28 years old Clinical indication: Pelvic pain; Prior surgery; Surgery date: 1-6 months; Surgery type: HX of c section; Additional info: Rlq pain TECHNIQUE: Imaging protocol: Real-time complete transabdominal and transvaginal pelvic ultrasound with image documentation. Transvaginal imaging was used for better evaluation of the endometrium, adnexa, and/or cervix. Real-time duplex ultrasound scan of the arterial and venous flow with color Doppler flow and spectral waveform analysis with image documentation. Complete duplex exam focused on the ovaries. Duplex exam was performed to evaluate for torsion and other vascular conditions. COMPARISON: US OB transvaginal [facility] 09/25/2022 11:38 AM FINDINGS: Uterus: Uterus measures 9.2 cm x 5.48 cm x 4.57 cm. Normal endometrial stripe measuring 0.5 cm in thickness. Right ovary/adnexa: Normal. No mass. Normal duplex of the ovary. Normal Doppler waveforms and color flow. Arterial and venous flow are normal. No evidence of ovarian torsion. Small cysts noted. Left ovary/adnexa: Normal. No mass. Normal duplex of the ovary. Normal Doppler waveforms and color flow. Arterial and venous flow are normal. No evidence of ovarian torsion. Small cysts noted. Intraperitoneal space: No free fluid. US/US transvaginal [id number] IMPRESSION: No acute findings.
[2023-09-16] MEDS: ketorolac 10 mg Tablet PO (02:13)
[2023-09-16] MEDS: ondansetron 4 MG Tablet PO (02:13)
[2023-09-16 02:19] LABS: Add Urine Microscopic? YES; Bilirubin Urine Neg (Negative); Blood Urine 3+ (Negative); Glucose Urine UA Norm (Normal); Ketones Urine Negative (Negative); Leukocyte Esterase Urine Negative (Negative); Nitrate Urine Negative (Negative); Protein Urine 1+ (Negative); Specific Gravity, Urine 1.025 (1.005-1.030); Urine Appearance Hazy (CLEAR); Urine Color Yellow (Yellow); Urobilinogen Urine Neg (Negative); pH Urine 6 (5-7)
[2023-09-16 02:20] LABS: Amorphous Sediment Urine 1+ /hpf; Bacteria Urine 2+ /hpf; Coarse Granular Casts Urine 0-4 /lpf; Hyaline Casts Urine 0-4 /lpf; Mucus Urine 1+ /hpf; Squamous Epithelial Cell Urine 15-25 /hpf (0-5); WBC Urine 0-4 /hpf (0-5)
[2023-09-16 02:42] LABS: Basophils % 0.5 %; Eosinophils # 0.4 10^3/uL (0.0-0.8); Lymphocytes # 2.2 10^3/uL (0.8-4.8); Lymphocytes % 25.4 %; Mean Corpuscular HGB Conc 30.9 g/dL (30-55); Mean Corpuscular Hemoglobin 22.9 pg (27-33); Mean Corpuscular Volume 73.9 fl (85-98); Mean Platelet Volume 9.6 fL (7.4-10.4); Monocytes # 0.5 10^3/uL (0.2-0.9); Monocytes % 5.2 %; Neutrophils # 5.52 10^3/uL (1.8-7.7); Neutrophils % 63.6 %; Nucleated Red Blood Cells % 0 %; Platelet Count 293 10^3/cmm (157-399); Red Blood Count 5.82 10^6/uL (3.85-5.65); Red Cell Distribution Width 14.4 % (12.1-15.1); White Blood Count 8.67 10^3/uL (3.29-11.43)
[2023-09-16 02:52] LABS: HCG, Serum Qual Negative (Negative)
[2023-09-16 03:00] LABS: Alanine Aminotransferase 31 U/L (0-33); Albumin Level 4.2 g/dL (3.5-5.2); Alkaline Phosphatase 73 U/L (35-105); Anion Gap 15.1 (5-19); Aspartate Amino Transferase 21 U/L (0-32); Blood Urea Nitrogen 13 mg/dL (6-20); C Reactive Protein 15.3 mg/L (0.0-4.9); Calcium 8.7 mg/dL (8.5-10.5); Carbon Dioxide 24 mmol/L (22-29); Chloride 104 mmol/L (98-107); Creatinine Clr Calc Pharmacy 296.2035; Globulin 3.8 g/dL (1.3-4.6); Glomerular Filtration Rate 191.5 mL/min (90-130); Glucose 149 mg/dL (65-115); Lipase 52 U/L (13-60); Osmolality Calculated 291 mOsm/kg (285-295); Potassium 4.1 mmol/L (3.5-5.1); Sodium 139 mmol/L (136-145); Total Bilirubin 0.2 mg/dL (0.15-1.2)
--- NOTE | 2023-09-16 03:10 | ED_ITS ---
HPI - Abdominal Pain 2 General: Chief Complaint: Abdominal Pain Stated Complaint: Lower back pain, Right hip pain Time Seen by Provider: 09/16/23 01:15 History of Present Illness: 28-year-old female with right-sided lowe r abdominal/pelvic pain for the last 3 weeks she says. It radiates to her groin. No hematuria. No dysuria. She has had some vaginal bleeding, but she is on Depo-Provera. No discharge. No vomiting. No fever. She had a CT in July showing an ovarian cyst that was 5 cm on the LEFT. Her it architecture analyst had ordered an outpatient ultrasound which she has been unable to get. She notes this morning that her pain seems to be worsening. PFSH ED 2 PFSH: Medical History Spinal headache Suicidal ideation Hx of transfusion of whole blood BMI 50.0-59.9, adult Hypertension Bipolar 1 disorder Laceration of left knee without complication No pertinent family history Surgical History Hx of tonsillectomy No pertinent past surgical history Family History Mother Anemia Psychiatric illness bipolar Other Cancer Chronic kidney disease (CKD) Clotting disorder Dementia Diabetes Hyperlipidemia Hypertension Stroke Denies family history of CAD (coronary artery disease) Suicide Anesthesia complication Bleeding disorder Family history of premature coronary artery disease Lung disease Social History Smoking and tobacco/nicotine status: former use of tobacco/nicotine Alcohol intake: never Substance/Drug Use: never Course 2 Vital Signs: Vital signs: Vital Signs Temperature 97.7 F 09/16/23 00:11 Pulse Rate 82 09/16/23 04:45 Respiratory Rate 18 09/16/23 04:45 Blood Pressure 172/93 09/16/23 00:11 Pulse Oximetry 97 09/16/23 04:45 Oxygen Delivery Me thod Room Air 09/16/23 00:11 MDM - Abdominal Pain Medical Decision Making Worsening pelvic pain on the right and a nontoxic-appearing patient. She is afebrile. CBC is normal. BMP is not remarkable. CRP is only 15. Urine is contaminated sample but does not show overt hematuria or infection. Ultrasound of the pelvis is not remarkable, with good blood flow to the ovaries, small cysts only, and no significant free fluid. She will be discharged home to outpatient follow-up to return for any concerning symptoms. Lab Data 09/16/23 02:30 09/16/23 02:30 Labs/Radiology: Radiology Impressions Transvaginal US 09/16/23 01:35 IMPRESSION: No acute findings. Laboratory Results WBC 8.67 10^3/uL (3.29-11.43) 09/16/23 02:30 RBC 5.82 10^6/uL (3.85-5.65) H 09/16/23 02:30 Hgb 13.30 g/dL (11.27-16.99) 09/16/23 02:30 Hct 43.0 % (36-47) 09/16/23 02:30 MCV 73.9 fl (85-98) L 09/16/23 02:30 MCH 22.9 pg (27-33) L 09/16/23 02:30 MCHC 30.9 g/dL (30-55) 09/16/23 02:30 RDW 14.4 % (12.1-15.1) 09/16/23 02:30 Plt Count 293 10^3/cmm (157-399) 09/16/23 02:30 MPV 9.6 fL (7.4-10.4) 09/16/23 02:30 Neut % (Auto) 63.6 % 09/16/23 02:30 Lymph % (Auto) 25.4 % 09/16/23 02:30 [place] % (Auto) 5.2 % 09/16/23 02:30 Eos % (Auto) 5.0 % 09/16/23 02:30 Baso % (Auto) 0.5 % 09/16/23 02:30 Neut # (Auto) 5.52 10^3/uL (1.8-7.7) 09/16/23 02:30 Lymph # (Auto) 2.2 10^3/uL (0.8-4.8) 09/16/23 02:30 [place] # (Auto) 0.5 10^3/uL (0.2-0.9) 09/16/23 02:30 Eos # (Auto) 0.4 10^3/uL (0.0-0.8) 09/16/23 02:30 Baso # (Auto) 0.0 10^3/uL (0.0-0.1) 09/16/23 02:30 Nucleated RBC % (auto) 0 % 09/16/23 02:30 Nucleated RBCs # 0.0 /100WBC 09/16/23 02:30 Sodium 139 mmol/L (136-145) 09/16/23 02:30 Potassium 4.1 mmol/L (3.5-5.1) 09/16/23 02:30 Chloride 104 mmol/L (98-107) 09/16/23 02:30 Carbon Dioxide 24 mmol/L (22-29) 09/16/23 02:30 Anion Gap 15.1 (5-19) 09/16/23 02:30 BUN 13 mg/dL (6-20) 09/16/23 02:30 Creatinine 0.4 mg/dL (0.5-0.9) L 09/16/23 02:30 GFR Calculation 191.5 mL/min (90-130) H 09/16/23 02:30 Glucose 149 mg/dL (65-115) H 09/16/23 02:30 Calculated Osmolality 291 mOsm/kg (285-295) 09/16/23 02:30 Calcium 8.7 mg/dL (8.5-10.5) 09/16/23 02:30 Total Bilirubin 0.2 mg/dL (0.15-1.2) 09/16/23 02:30 AST 21 U/L (0-32) 09/16/23 02:30 ALT 31 U/L (0-33) 09/16/23 02:30 Alkaline Phosphatase 73 U/L (35-105) 09/16/23 02:30 C-Reactive Protein 15.3 mg/L (0.0-4.9) H 09/16/23 02:30 Total Protein 8.0 g/dL (6.6-8.7) 09/16/23 02:30 Albumin 4.2 g/dL (3.5-5.2) 09/16/23 02:30 Globulin 3.8 g/dL (1.3-4.6) 09/16/23 02:30 Lipase 52 U/L (13-60) 09/16/23 02:30 HCG, Qual Negative (Negative) 09/16/23 02:30 Urine Color Yellow (Yellow) 09/16/23 01:46 Urine Appearance Hazy (CLEAR) A 09/16/23 01:46 Urine pH 6 (5-7) 09/16/23 01:46 Ur Specific [place] 1.025 (1.005-1.030) 09/16/23 01:46 Urine Protein 1+ (Negative) H 09/16/23 01:46 Urine Glucose (UA) Norm (Normal) 09/16/23 01:46 Urine Ketones Negative (Negative) 09/16/23 01:46 Urine Blood 3+ (Negative) H 09/16/23 01:46 Urine Nitrate Negative (Negative) 09/16/23 01:46 Urine Bilirubin Neg (Negative) 09/16/23 01:46 Urine Urobilinogen Neg mg/dL (Negative) 09/16/23 01:46 Ur Leukocyte Esterase Negative (Negative) 09/16/23 01:46 Urine RBC 5-10 /hpf (0-2) H 09/16/23 01:46 Urine WBC 0-4 /hpf (0-5) H 09/16/23 01:46 Ur Squamous Epith Cells 15-25 /hpf (0-5) H 09/16/23 01:46 Amorphous Sediment 1+ /hpf 09/16/23 01:46 Urine Bacteria 2+ /hpf (NONE) H 09/16/23 01:46 Hyaline Casts 0-4 /lpf H 09/16/23 01:46 Coarse Granular Casts 0-4 /lpf H 09/16/23 01:46 Urine Mucus 1+ /hpf 09/16/23 01:46 All radiology interpretation(s) finalized by discharge Discharge Plan Discharge Patient Disposition: Home Clinical Impression: Pelvic pain Condition: Stable Prescriptions: New hydrocodone-acetaminophen 5-325 mg tablet 1 tab PO Q8H PRN (Reason: pain) Qty: 7 0RF ketorolac 10 mg tablet 10 mg PO TID PRN (Reason: pain) Qty: 10 0RF No Action sucralfate [Carafate] 1 gram tablet 1 g PO BID Qty: 60 0RF medroxyprogesterone [Depo-Provera] 150 mg/mL suspension 150 mg IM ONCE Qty: 1 0RF Rx Instructions: patient is given second DMPA early due to bleeding; and patient does not want other options of treatment, such as OCs medroxyprogesterone [Depo-Provera] 150 mg/mL suspension 150 mg IM ONCE Qty: 1 0RF Rx Instructions: patient is given second DMPA early due to bleeding; and patient does not want other options, such as OCs pantoprazole [Protonix] 40 mg tablet,delayed release (DR/EC) 40 mg PO DAILY Qty: 60 0RF ondansetron 4 mg tablet,disintegrating 4 mg PO Q8H PRN (Reason: nausea and vomiting) Qty: 30 0RF medroxyprogesterone [Depo-Provera] 150 mg/mL suspension 150 mg IM .q 3 months Qty: 1 4RF (DME) CPAP 14 setting See Rx Instructions .ROUTE .MEDSUPPLY Qty: 1 0RF Rx Instructions: As directed (DME) CPAP mask, tubing, supplies See Rx Instructions .ROUTE .MEDSUPPLY Qty: 1 1RF Rx Instructions: As directed acetaminophen 500 mg Tablet 1,000 mg PO Q6H PRN (Reason: Pain) nifedipine [Procardia XL] 30 mg tablet extended release 24hr 30 mg PO DAILY Qty: 30 0RF Discharge Orders: Discharge ED (Routine); Ordered 09/16/23 Ordered By: Billy Iglesias Referrals: Kulwinder Cole MD [Physician] - 4-7 days Kavon Gaines MD [Primary Care Provider] - 1-3 days Patient Instructions: Pelvic Pain in Women (ED), Opioid Safety, Pain Management Activity Restrictions/Additional Instructions: Alternate pain medication as discussed and directed. Return for vomiting liquids, fever greater than 100, worsening pain despite treatment other concerning symptoms. Call your doctor on Sunday for follow-up appointment. Coding Level of Care Code ED Solution Mixer for Kimmie Hedrick
[2023-09-16 04:45] VITALS: PULSE 82; RESP 18; O2SAT 97
== END 2023-09-16 04:43 | disposition home or self-care (01) ==
PROVIDERS: Emergency Provider Emergency Medicine; PCP Family Medicine
DX: R10.2 Pelvic and perineal pain (principal); Z87.891 Personal history of nicotine dependence
CPT/HCPCS: 36415; 76830; 80053; 81001; 83690; 84703; 85025; 86140; 99284; Q0162

== ENCOUNTER → 2023-11-21 09:08 | Outpatient (BNVA) | payer MEDICAID, SELFPAY | PROVIDERS: PCP Family Medicine; Visit Provider Obstetrics & Gynecology | DX: Z30.9 Encounter for contraceptive management, unspecified (principal) | CPT/HCPCS: 81025 ==

== ENCOUNTER 2023-12-03 18:59 | Emergency (ER) | payer MEDICAID, SELFPAY ==
[2023-12-03 19:15] VITALS: BP 153/83; PULSE 83; RESP 16; TEMP 36.8; O2SAT 98
--- NOTE | 2023-12-03 20:18 | ED_ITS ---
HPI - Abdominal Pain 2 General: Chief Complaint: Abdominal Pain Stated Complaint: Lower abd pain, post 7 months Time Seen by Provider: 12/03/23 20:03 History of Present Illness: Patient presents to the ER with complaints of a knot on her that is increasing in size and getting more tender. Patient says she noticed this 1 or 2 months ago. Patient is also talked with Dr. Cole about this and he said it possibly could be a hernia and is in the process of referring her to a general surgeon. Patient also has some epigastric discomfort with palpation. Review of Systems 2 General: Reports: 10 or more systems reviewed and unremarkable except in HPI and below PFSH ED 2 PFSH: Medical History Spinal headache Suicidal ideation Hx of transfusion of whole blood BMI 50.0-59.9, adult Hypertension Bipolar 1 disorder Laceration of left knee without complication No pertinent family history Surgical History Hx of tonsillectomy No pertinent past surgical history Family History Mother Anemia Psychiatric illness bipolar Other Cancer Chronic kidney disease (CKD) Clotting disorder Dementia Diabetes Hyperlipidemia Hypertension Stroke Denies family history of CAD (coronary artery disease) Suicide Anesthesia complication Bleeding disorder Family history of premature coronary artery disease Lung disease Social History Smoking and tobacco/nicotine status: former use of tobacco/nicotine Alcohol intake: never Substance/Drug Use: never Physical Exam 2 Const: COMMON NORMALS: no acute distress, average body habitus, patient oriented x3, no limitations, healthy appearing, alert and well nourished HENMT: COMMON NORMALS: normocephalic, atraumatic, hearing grossly normal bilaterally, external ears normal, Normal external nose present and moist oral mucous membranes HEAD & SCALP: normocephalic and atraumatic NOSE: Normal external nose present EXTERNAL EAR: Yes external ears normal Neck/C-Spine: COMMON NORMALS: no JVD Chest: COMMONS NORMALS: normal inspection of the chest and normal palpation of entire chest wall Resp: COMMON NORMALS: normal respiratory effort, No retractions, No use of accessory muscles and clear to auscultation bilaterally AUSCULTATION: clear to auscultation bilaterally Cardio: COMMON NORMALS: no JVD, regular rate, regular rhythm, S1 normal heart sound present, S2 normal heart sound present, No gallops present (Cardio), No clicks present (Cardio), No murmurs present (Cardio) and No rub (Cardio) R ATE: regular rate RHYTHM: regular rhythm HEART SOUNDS: S1 normal heart sound present and S2 normal heart sound present GI: COMMON NORMALS: Normal to inspection, nondistended, normoactive bowel sounds present, Soft to palpation, No hepatosplenomegaly present and no masses; negative for non-tender (Mildly tender to palpate pushing directly in the middle of her sc) PALPATION: Yes Soft to palpation and Yes No hepatosplenomegaly present OTHER: Also tender to push over epigastric area. Neuro: COMMON NORMALS: patient oriented x3 SENSORIUM/ORIENTATION: Yes alert Course 2 Vital Signs: Vital signs: Vital Signs Temperature 98.2 F 12/03/23 19:15 Pulse Rate 83 12/03/23 19:15 Respiratory Rate 16 12/03/23 19:15 Blood Pressure 153/83 12/03/23 19:15 Pulse Oximetry 98 12/03/23 19:15 MDM - Abdominal Pain Medical Decision Making Physical exam was performed lab work included CBC CMP and urinalysis, all which was essentially benign. Patient will be given a small dose of hydrocodone as a prescription and should keep her appointment with the general surgeon as referred by Dr. Cole. She has any other more problems she may go back and see Dr. Cole or return to the ER. Differential Diagnosis Likely abdominal pain; Unlikely acute appendicitis, calculus of kidney, constipation, diverticulitis, endometriosis, gastroenteritis, pancreatitis or small bowel obstruction Medical Records I reviewed the patient's medical records. Lab Data I reviewed the patient's lab results. 12/03/23 20:19 12/03/23 20:19 Labs/Radiology: Laboratory Results WBC 9.92 10^3/uL (3.29-11.43) 12/03/23 20:19 RBC 5.99 10^6/uL (3.85-5.65) H 12/03/23 20:19 Hgb 14.20 g/dL (11.27-16.99) 12/03/23 20:19 Hct 44.3 % (36-47) 12/03/23 20:19 MCV 74.0 fl (85-98) L 12/03/23 20:19 MCH 23.7 pg (27-33) L 12/03/23 20:19 MCHC 32.1 g/dL (30-55) 12/03/23 20:19 RDW 14.6 % (12.1-15.1) 12/03/23 20:19 Plt Count 342 10^3/cmm (157-399) 12/03/23 20:19 MPV 9.6 fL (7.4-10.4) 12/03/23 20:19 Neut % (Auto) 65.5 % 12/03/23 20:19 Lymph % (Auto) 25.6 % 12/03/23 20:19 [place] % (Auto) 3.8 % 12/03/23 20:19 Eos % (Auto) 4.0 % 12/03/23 20:19 Baso % (Auto) 0.5 % 12/03/23 20:19 Neut # (Auto) 6.49 10^3/uL (1.8-7.7) 12/03/23 20:19 Lymph # (Auto) 2.5 10^3/uL (0.8-4.8) 12/03/23 20:19 [place] # (Auto) 0.4 10^3/uL (0.2-0.9) 12/03/23 20:19 Eos # (Auto) 0.4 10^3/uL (0.0-0.8) 12/03/23 20:19 Baso # (Auto) 0.1 10^3/uL (0.0-0.1) 12/03/23 20:19 Nucleated RBC % (auto) 0 % 12/03/23 20:19 Nucleated RBCs # 0.0 /100WBC 12/03/23 20:19 Sodium 137 mmol/L (136-145) 12/03/23 20:19 Potassium 3.9 mmol/L (3.5-5.1) 12/03/23 20:19 Chloride 101 mmol/L (98-107) 12/03/23 20:19 Carbon Dioxide 25 mmol/L (22-29) 12/03/23 20:19 Anion Gap 14.9 (5-19) 12/03/23 20:19 BUN 11 mg/dL (6-20) 12/03/23 20:19 Creatinine 0.5 mg/dL (0.5-0.9) 12/03/23 20:19 GFR Calculation 148.0 mL/min (90-130) H 12/03/23 20:19 Glucose 126 mg/dL (65-115) H 12/03/23 20:19 Calculated Osmolality 285 mOsm/kg (285-295) 12/03/23 20:19 Calcium 9.6 mg/dL (8.5-10.5) 12/03/23 20:19 Total Bilirubin 0.2 mg/dL (0.15-1.2) 12/03/23 20:19 AST 19 U/L (0-32) 12/03/23 20: ALT 31 U/L (0-33) 12/03/23 20:19 Alkaline Phosphatase 81 U/L (35-105) 12/03/23 20:19 Total Protein 8.5 g/dL (6.6-8.7) 12/03/23 20:19 Albumin 4.6 g/dL (3.5-5.2) 12/03/23 20:19 Globulin 3.9 g/dL (1.3-4.6) 12/03/23 20:19 Urine Color Yellow (Yellow) 12/03/23: Urine Appearance Clear (CLEAR) 12/03/23 20:26 Urine pH 5 (5-7) 12/03/23 20:26 Ur Specific [place] 1.030 (1.005-1.030) 12/03/23 20:26 Urine Protein 1+ (Negative) H 12/03/23 20:26 Urine Glucose (UA) Norm (Normal) 12/03/23 20: Urine Ketones 1+ (Negative) H 12/03/23 20: Urine Blood Neg (Negative) 12/03/23: Urine Nitrate Negative (Negative) 12/03/23: Urine Bilirubin Neg (Negative) 12/03/23 20: Urine Urobilinogen Neg mg/dL (Negative) 12/03/23 20:26 Ur Leukocyte Esterase Negative (Negative) 12/03/23 20: Urine RBC 0-4 /hpf (0-2) H 12/03/23 20:26 Urine WBC 0-4 /hpf (0-5) H 12/03/23 20:26 Ur Squamous Epith Cells 15-25 /hpf (0-5) H 12/03/23 20:26 Amorphous Sediment Not Reportable 12/03/23 20:26 Urine Bacteria Trace /hpf (NONE) 12/03/23 20:26 Urine Mucus 2+ /hpf 12/03/23 20:26 No radiology studies performed this visit Discharge Plan Discharge Patient Disposition: Home Clinical Impression: Abdominal pain Qualifiers: Abdominal location: unspecified location Qualified Code(s): R10.9 - Unspecified abdominal pain Condition: Stable Prescriptions: New hydrocodone-acetaminophen 5-325 mg tablet 1 tab PO Q6H PRN (Reason: pain) Qty: 14 0RF No Action sucralfate [Carafate] 1 gram tablet 1 g PO BID Qty: 60 0RF medroxyprogesterone [Depo-Provera] 150 mg/mL suspension 150 mg IM ONCE Qty: 1 0RF Rx Instructions: patient is given second DMPA early due to bleeding; and patient does not want other options of treatment, such as OCs medroxyprogesterone [Depo-Provera] 150 mg/mL suspension 150 mg IM ONCE Qty: 1 0RF Rx Instructions: patient is given second DMPA early due to bleeding; and patient does not want other options, such as OCs pantoprazole [Protonix] 40 mg tablet,delayed release (DR/EC) 40 mg PO DAILY Qty: 60 0RF ondansetron 4 mg tablet,disintegrating 4 mg PO Q8H PRN (Reason: nausea and vomiting) Qty: 30 0RF fluticasone propionate [Flonase Allergy Relief] 50 mcg/actuation spray,suspension 1 spray intranasal DAILY PRN (Reason: nasal congestion) Qty: 16 0RF Rx Instructions: administer into each nostril (DME) CPAP 14 setting See Rx Instructions .ROUTE .MEDSUPPLY Qty: 1 0RF Rx Instructions: As directed (DME) CPAP mask, tubing, supplies See Rx Instructions .ROUTE .MEDSUPPLY Qty: 1 1RF Rx Instructions: As directed ketorolac 10 mg tablet 10 mg PO TID PRN (Reason: pain) Qty: 10 0RF acetaminophen 500 mg Tablet 1,000 mg PO Q6H PRN (Reason: Pain) nifedipine [Procardia XL] 30 mg tablet extended release 24hr 30 mg PO DAILY Qty: 30 0RF Discharge Orders: Discharge ED (Routine); Ordered 12/03/23 Ordered By: Henry Martinez Referrals: Kavon Gaines MD [Primary Care Provider] - 1 week Patient Instructions: Abdominal Pain (ED), Opioid Safety, Pain Management Activity Restrictions/Additional Instructions: Your lab work did not show any acute abnormalities that would be causing your abdominal pain. Please keep your appointment that is in the process of being scheduled with general surgeon. If your pain worsens please feel free to see Dr. Cole again for further evaluation and treatment. Coding Level of Care Code ED Tieing Machine Operator for Kimmie Hedrick
[2023-12-03 20:28] LABS: Basophils # 0.1 10^3/uL (0.0-0.1); Basophils % 0.5 %; Eosinophils # 0.4 10^3/uL (0.0-0.8); Hematocrit 44.3 % (36-47); Lymphocytes # 2.5 10^3/uL (0.8-4.8); Lymphocytes % 25.6 %; Mean Corpuscular HGB Conc 32.1 g/dL (30-55); Mean Corpuscular Hemoglobin 23.7 pg (27-33); Mean Platelet Volume 9.6 fL (7.4-10.4); Monocytes # 0.4 10^3/uL (0.2-0.9); Monocytes % 3.8 %; Neutrophils # 6.49 10^3/uL (1.8-7.7); Neutrophils % 65.5 %; Nucleated Red Blood Cells % 0 %; Platelet Count 342 10^3/cmm (157-399); Red Blood Count 5.99 10^6/uL (3.85-5.65); Red Cell Distribution Width 14.6 % (12.1-15.1); White Blood Count 9.92 10^3/uL (3.29-11.43)
[2023-12-03 20:38] LABS: Add Urine Microscopic? YES; Bilirubin Urine Neg (Negative); Blood Urine Neg (Negative); Glucose Urine UA Norm (Normal); Ketones Urine 1+ (Negative); Leukocyte Esterase Urine Negative (Negative); Nitrate Urine Negative (Negative); Protein Urine 1+ (Negative); Urine Appearance Clear (CLEAR); Urine Color Yellow (Yellow); Urobilinogen Urine Neg (Negative); pH Urine 5 (5-7)
[2023-12-03 20:39] LABS: Alanine Aminotransferase 31 U/L (0-33); Albumin Level 4.6 g/dL (3.5-5.2); Alkaline Phosphatase 81 U/L (35-105); Anion Gap 14.9 (5-19); Aspartate Amino Transferase 19 U/L (0-32); Blood Urea Nitrogen 11 mg/dL (6-20); Calcium 9.6 mg/dL (8.5-10.5); Carbon Dioxide 25 mmol/L (22-29); Chloride 101 mmol/L (98-107); Creatinine Clr Calc Pharmacy 237.0589; Globulin 3.9 g/dL (1.3-4.6); Glucose 126 mg/dL (65-115); Osmolality Calculated 285 mOsm/kg (285-295); Potassium 3.9 mmol/L (3.5-5.1); Sodium 137 mmol/L (136-145); Total Bilirubin 0.2 mg/dL (0.15-1.2); Total Protein 8.5 g/dL (6.6-8.7)
[2023-12-03 20:39] LABS: Add Urine Culture? No; Bacteria Urine TRACE /hpf; Mucus Urine 2+ /hpf; RBC Urine 0-4 /hpf (0-2); Squamous Epithelial Cell Urine 15-25 /hpf (0-5); WBC Urine 0-4 /hpf (0-5)
[2023-12-03 21:43] VITALS: BP 153/83; PULSE 83; RESP 16; TEMP 36.8; O2SAT 98
== END 2023-12-03 21:46 | disposition home or self-care (01) ==
PROVIDERS: Emergency Provider Emergency Medicine; PCP Family Medicine
DX: R10.13 Epigastric pain (principal); I10 Essential (primary) hypertension; Z87.891 Personal history of nicotine dependence
CPT/HCPCS: 80053; 81001; 85025; 99283

== ENCOUNTER 2024-01-14 10:55 | Emergency (ER) | payer MEDICAID, SELFPAY ==
[2024-01-14 11:12] VITALS: BP 181/93; PULSE 88; TEMP 36.9; O2SAT 94; BMI 45.8
--- NOTE | 2024-01-14 11:59 | ED_ITS ---
HPI - Abdominal Pain General: Chief Complaint: Abdominal Pain Stated Complaint: hernia issuses Time Seen by Provider: 01/14/24 11:14 Source: patient Limitations: no limitations History of Present Illness: Patient is a 28-year-old female presents to ED today for continued evaluation of her section incision and possible incisional hernia. Patient states she continues to have intermittent pain here especially when she is on her feet for long periods of time. She will intermittently feel a bulge that is easily reduced by lying down and resting. Patient was seen here in the emergency department approximately 6 weeks ago for similar symptoms. She was reportedly supposed to be referred to general surgery however this never got completed. Patient is continuing to have normal bowel movements and passes flatulence. No vomiting or fevers. She arrives in no acute distress. States symptoms have been present for 3 months. MD elicited complaint: abdominal pain Pertinent past history: other () Onset (ago): month(s) Pain Consistency: intermittent Location: Other (overlying incision) Radiation: none Migration to: no migration Exacerbating factors: other (walking, on feet all day, coughing, sitting up) Relieving factors: other (lying flat) Associated Symptoms: Denies change in bowel habits, chills, fever(s) and vomiting Related Data: Patient : No Review of Systems Const: Denies: fever(s), chills, body aches, fatigue or malaise Resp: Denies: dyspnea GI: Denies: abdominal pain (none currently), vomiting or change in bowel habits Musc: Denies: neck pain, back pain, extremity pain or joint pain [facility] ED PFSH: Medical History Spinal headache Suicidal ideation Hx of transfusion of whole blood BMI 50.0-59.9, adult Hypertension Bipolar 1 disorder Laceration of left knee without complication No pertinent family history Surgical History Hx of tonsillectomy No pertinent past surgical history Family History Mother Anemia Psychiatric illness bipolar Other Cancer Chronic kidney disease (CKD) Clotting disorder Dementia Diabetes Hyperlipidemia Hypertension Stroke Denies family history of CAD (coronary artery disease) Suicide Anesthesia complication Bleeding disorder Family history of premature coronary artery disease Lung disease Social History Smoking and tobacco/nicotine status: unknown if used tobacco/nicotine Alcohol intake: never Substance/Drug Use: never Physical Exam Const: COMMON NORMALS: no acute distress, patient oriented x3, no limitations, alert and well nourished GENERAL APPEARANCE: cooperative NUTRITIONAL APPEARANCE: obese morbidly obese (BMI 45.9) Resp: COMMON NORMALS: normal respiratory effort and clear to auscultation bilaterally AUSCULTATION: clear to auscultation bilaterally Cardio: COMMON NORMALS: regular rate and regular rhythm RATE: regular rate RHYTHM: regular rhythm GI: COMMON NORMALS: Normal to inspection, nondistended, normoactive bowel sounds present, Soft to palpation, No hepatosplenomegaly present and no masses INSPECTION: Yes normal to inspection AUSCULTATION: Yes normoactive bowel sounds PALPATION: Yes Soft to palpation, Yes Tenderness to palpation present (GI) (overlying ; no obvious mass appreciated at this time), No Gua rding due to palpation present (GI), No Rigid due to palpation and Yes No hepatosplenomegaly present Extremity: GENERAL: Yes normal exam except as noted Neuro: COMMON NORMALS: patient oriented x3 SENSORIUM/ORIENTATION: Yes alert Course Vital Signs: Vital signs: Vital Signs Temperature 98.4 F 01/14/24 11:12 Pulse Rate 88 01/14/24 11:12 Blood Pressure 181/93 01/14/24 11:12 Pulse Oximetry 94 01/14/24 11:12 Oxygen Delivery Me thod Room Air 01/14/24 11:12 MDM - Abdominal Pain Medical Decision Making History is concerning for a possible incisional hernia. History does not suggest incarceration/strangulation. Symptoms have been present for 3 months. She is defecating and passing flatulence normally. No fevers or vomiting. Other etiologies could include incisional discomfort. Patient will be referred to general surgery for further evaluation for hernia. Return precautions given. Medical Records I reviewed the patient's medical records. No radiology studies performed this visit Discharge Plan Discharge Patient Disposition: Home Clinical Impression: Incisional hernia Condition: Stable Prescriptions: No Action sucralfate [Carafate] 1 gram tablet 1 g PO BID Qty: 60 0RF pantoprazole [Protonix] 40 mg tablet,delayed release (DR/EC) 40 mg PO DAILY Qty: 60 0RF ondansetron 4 mg tablet,disintegrating 4 mg PO Q8H PRN (Reason: nausea and vomiting) Qty: 30 0RF Nexplanon 68 mg implant subdermal amoxicillin-pot clavulanate 875-125 mg tablet 1 tab PO BID 5 Days Qty: 10 0RF fluticasone propionate [Flonase Allergy Relief] 50 mcg/actuation spray,suspension 1 spray intranasal DAILY PRN (Reason: nasal congestion) Qty: 16 0RF Rx Instructions: administer into each nostril (DME) CPAP 14 setting See Rx Instructions .ROUTE .MEDSUPPLY Qty: 1 0RF Rx Instructions: As directed (DME) CPAP mask, tubing, supplies See Rx Instructions .ROUTE .MEDSUPPLY Qty: 1 1RF Rx Instructions: As directed ketorolac 10 mg tablet 10 mg PO TID PRN (Reason: pain) Qty: 10 0RF hydrocodone-acetaminophen 5-325 mg tablet 1 tab PO Q6H PRN (Reason: pain) Qty: 14 0RF acetaminophen 500 mg Tablet 1,000 mg PO Q6H PRN (Reason: Pain) nifedipine [Procardia XL] 30 mg tablet extended release 24hr 30 mg PO DAILY Qty: 30 0RF Discharge Orders: Discharge ED (Routine); Ordered 01/14/24 Ordered By: Jeanne Campbell Referrals: Kavon Gaines MD [Primary Care Provider] - Patient Instructions: Incisional Hernia (DC) Activity Restrictions/Additional Instructions: As we discussed case management should reach out to you later this week to help set you up with your follow-up appointment with general surgery for further evaluation of your possible incisional hernia. If you have not heard from them in a few days, please contact the ER at [phone] and ask for the machine made shoe unit worker who should be able to assist you. You need to return for worsening pain, inability to pass gas or have a bowel movement, repetitive episodes of vomiting, fevers, or any other concerns you may have. Coding Level of Care Code ED Aerotriangulation Specialist for Kimmie Hedrick
--- NOTE | 2024-01-16 08:03 | DCPLANNER ---
message sent to gen surg for er f/u
== END 2024-01-14 12:27 | disposition home or self-care (01) ==
PROVIDERS: Emergency Provider Physician Assistant; PCP Family Medicine
DX: K43.2 Incisional hernia without obstruction or gangrene (principal); I10 Essential (primary) hypertension
CPT/HCPCS: 99281

== ENCOUNTER → 2024-04-16 13:17 | Outpatient (BNVA) | payer MEDICAID, SELFPAY | PROVIDERS: PCP Family Medicine | DX: J02.9 Acute pharyngitis, unspecified (principal); R05.9 Cough, unspecified; R09.89 Other specified symptoms and signs involving the circulatory and respiratory systems | CPT/HCPCS: 71046; 87071; 87400; 87426; 87880 ==

== ENCOUNTER 2024-06-01 22:26 | Emergency (ER) | payer MEDICAID, SELFPAY ==
[2024-06-01 22:27] VITALS: BP 161/80; PULSE 94; RESP 16; TEMP 36.9; O2SAT 98; BMI 44.6
--- NOTE | 2024-06-01 22:41 | W.ED.SKABFB ---
HPI - Skin/Abscess/Foreign Bdy General: Chief complaint: Skin/Abscess/Foreign Body Stated complaint: Rash Under Rt Arm Time Seen by Provider: 06/01/24 22:29 Source: patient Mode of arrival: ambulatory Limitations: no limitations History of Present Illness: 29-year-old female states she has had a rash under her right armpit over the last week. She states has had an odor to it has some slight pain she denies any drainage denies any fever denies any worse improving factors. Associated symptoms: Deny chills, fever(s), nausea or vomiting Related Data Home Medications Medication Instructions Recorded Confirmed acetaminophen 500 mg tablet 1,000 mg PO Q6H PRN Pain 11/02/22 04/16/24 etonogestrel 68 mg subdermal subdermal 01/03/24 04/16/24 implant (Nexplanon) Previous Rx's Medication Instructions Recorded CPAP 14 setting #1 ea 12/06/22 CPAP mask, tubing, supplies #1 ea 12/06/22 nifedipine 30 mg tablet,extended 30 mg PO DAILY #30 tabs 04/02/23 release 24 hr (Procardia XL) sucralfate 1 gram tablet (Carafate) 1 g PO BID #60 tabs 07/03/23 ondansetron 4 mg disintegrating 4 mg PO Q8H PRN nausea and 08/13/23 tablet vomiting #30 tabs pantoprazole 40 mg tablet,delayed 40 mg PO DAILY #60 tabs 08/13/23 release (Protonix) ketorolac 10 mg tablet 10 mg PO TID PRN pain #10 tabs 09/16/23 fluticasone propionate 50 1 spray intranasal DAILY PRN nasal 11/15/23 mcg/actuation nasal congestion #16 grams spray,suspension (Flonase Allergy Relief) hydrocodone 5 mg-acetaminophen 325 1 tab PO Q6H PRN pain #14 tabs 12/03/23 mg tablet levonorgestrel 0.1 mg-ethinyl 1 tab PO DAILY #84 tabs 04/03/24 estradiol 0.02 mg (21)/iron (7) tablet albuterol sulfate 2.5 mg/3 mL 2.5 mg (3 mL) inhalation Q4H PRN 04/16/24 (0.083 %) solution for nebulization shortness of breath or wheezing #75 mL albuterol sulfate 90 mcg/actuation 2 puff inhalation Q6H PRN 04/16/24 aerosol inhaler shortness of breath or wheezing #6.7 grams azithromycin 500 mg tablet 500 mg PO DAILY 5 days #5 tabs 04/16/24 prednisone 20 mg tablet 20 mg PO BID 5 days #10 tabs 04/16/24 cephalexin 500 mg capsule 500 mg PO TID 7 days #21 caps 06/01/24 clotrimazole 1 % topical cream 1 applic topical BID 2 weeks #30 06/01/24 grams Allergies Allergy/AdvReac Type Severity Reaction Status Date / Time tramadol Allergy feels like Verified 04/16/24 12:44 ants crawling Review of Systems Const: Denies: fever(s), chills, body aches or change in appetite ENMT: Denies: throat pain or dental pain Card: Denies: chest pain Resp: Denies: dyspnea GI: Denies: abdominal pain, nausea, vomiting or diarrhea Musc: Denies: neck pain or back pain Skin/Breast: Reports: rash Neuro: Denies: headache(s) PFSH ED PFSH: Medical History Spinal headache Suicidal ideation Hx of transfusion of whole blood BMI 50.0-59.9, adult Hypertension Bipolar 1 disorder Laceration of left knee without complication No pertinent family history Surgical History Hx of tonsillectomy No pertinent past surgical history Family History Mother Anemia Psychiatric illness bipolar Other Cancer Chronic kidney disease (CKD) Clotting disorder Dementia Diabetes Hyperlipidemia Hypertension Stroke Denies family history of CAD (coronary artery disease) Suicide Anesthesia complication Bleeding disorder Family history of premature coronary artery disease Lung disease Social History (Updated 04/16/24 @ 13:18 by Felicitas Figueroa NP) Smoking and tobacco/nicotine status: current every day tobacco/nicotine user cigarettes Packs smoked per day: 0.33 Alcohol intake: never Substance/Drug Use: never Physical Exam Const: COMMON NORMALS: no acute distress, patient oriented x3 and healthy appearing HENMT: COMMON NORMALS: normocephalic and atraumatic HEAD & SCALP: normocephalic and atraumatic Eye: COMMON NORMALS: conjunctivae normal CONJUNCTIVA: Yes conjunctivae normal Neck/C-Spine: COMMON NORMALS: full ROM Chest: COMMONS NORMALS: normal inspection of the chest Resp: COMMON NORMALS: normal respiratory effort Cardio: COMMON NORMALS: regular rate RATE: regular rate Extremity: COMMON NORMALS: normal to inspection and full ROM Neuro: COMMON NORMALS: patient oriented x3, moves all extremities and no focal motor deficits Psych: COMMON NORMALS: mental status grossly normal, Normal thought process present and cooperative THOUGHT PROCESS: Normal thought process present Skin: NARRATIVE SKIN EXAM: Rash noted under right armpit no drainage Course Vital Signs: Vital signs: Vital Signs Temperature 98.4 F 06/01/24 22:27 Pulse Rate 94 06/01/24 22:27 Respiratory Rate 16 06/01/24 22:27 Blood Pressure 161/80 06/01/24 22:27 Pulse Oximetry 98 06/01/24 22:27 Oxygen Delivery Me thod Room Air 06/01/24 22:27 MDM - Skin/Abscess/Foreign Bdy Medicial Decision Making Patient presents with rash under right armpit is nonspecific in nature she had some odor we will place on clotrimazole cream along with Keflex she is follow-up with PCP and return if worsening. Medical Records I reviewed the patient's medical records. No radiology studies performed this visit Discharge Plan Discharge Patient Disposition: Home Clinical Impression: Rash Condition: Stable Prescriptions: New cephalexin 500 mg capsule 500 mg PO TID 7 Days Qty: 21 0RF clotrimazole 1 % cream 1 applic topical BID 14 Days Qty: 30 0RF No Action sucralfate [Carafate] 1 gram tablet 1 g PO BID Qty: 60 0RF pantoprazole [Protonix] 40 mg tablet,delayed release (DR/EC) 40 mg PO DAILY Qty: 60 0RF ondansetron 4 mg tablet,disintegrating 4 mg PO Q8H PRN (Reason: nausea and vomiting) Qty: 30 0RF Nexplanon 68 mg implant subdermal prednisone 20 mg tablet 20 mg PO BID 5 Days Qty: 10 0RF albuterol sulfate 2.5 mg /3 mL (0.083 %) solution for nebulization 2.5 mg inhalation Q4H PRN (Reason: shortness of breath or wheezing) Qty: 75 0RF albuterol sulfate 90 mcg/actuation HFA aerosol inhaler 2 puff inhalation Q6H PRN (Reason: shortness of breath or wheezing) Qty: 6.7 0RF azithromycin 500 mg tablet 500 mg PO DAILY 5 Days Qty: 5 0RF fluticasone propionate [Flonase Allergy Relief] 50 mcg/actuation spray,suspension 1 spray intranasal DAILY PRN (Reason: nasal congestion) Qty: 16 0RF Rx Instructions: administer into each nostril (DME) CPAP 14 setting See Rx Instructions .ROUTE .MEDSUPPLY Qty: 1 0RF Rx Instructions: As directed (DME) CPAP mask, tubing, supplies See Rx Instructions .ROUTE .MEDSUPPLY Qty: 1 1RF Rx Instructions: As directed levonorgest-eth.estradiol-iron 0.1 mg-0.02 mg (21)/iron (7) tablet 1 tab PO DAILY Qty: 84 0RF ketorolac 10 mg tablet 10 mg PO TID PRN (Reason: pain) Qty: 10 0RF hydrocodone-acetaminophen 5-325 mg tablet 1 tab PO Q6H PRN (Reason: pain) Qty: 14 0RF acetaminophen 500 mg Tablet 1,000 mg PO Q6H PRN (Reason: Pain) nifedipine [Procardia XL] 30 mg tablet extended release 24hr 30 mg PO DAILY Qty: 30 0RF Discharge Orders: Discharge ED (Routine); Ordered 06/01/24 Ordered By: rBian Rocha Referrals: Kavon Gaines MD [Primary Care Provider] - 4-7 days Discharge Diet: Advance as tolerated Discharge Activity: Resume usual activity Patient Instructions: Acute Rash (ED) Coding Level of Care Code ED Core Blower Operator for Kimmie Hedrick
[2024-06-01] MEDS: dexamethasone 10 mg/mL INJ IM (22:50)
[2024-06-01 23:07] VITALS: PULSE 96; O2SAT 97
== END 2024-06-01 23:08 | disposition home or self-care (01) ==
PROVIDERS: Emergency Provider Emergency Medicine; PCP Family Medicine
DX: R21 Rash and other nonspecific skin eruption (principal); F17.210 Nicotine dependence, cigarettes, uncomplicated; I10 Essential (primary) hypertension
CPT/HCPCS: 96372; 99284; J1100

== ENCOUNTER 2024-06-28 22:30 | Emergency (ER) | payer MEDICAID, SELFPAY ==
[2024-06-28 22:38] VITALS: BP 148/80; PULSE 84; RESP 19; TEMP 36.8; O2SAT 98; BMI 44.1
[2024-06-28 23:27] LABS: Basophils % 0.5 %; Eosinophils # 0.3 10^3/uL (0.0-0.8); Eosinophils % 5.5 %; Hematocrit 42.4 % (36-47); Lymphocytes # 1.7 10^3/uL (0.8-4.8); Lymphocytes % 31.6 %; Mean Corpuscular HGB Conc 31.4 g/dL (30-55); Mean Corpuscular Hemoglobin 24.4 pg (27-33); Mean Corpuscular Volume 77.8 fl (85-98); Mean Platelet Volume 9.7 fL (7.4-10.4); Monocytes # 0.4 10^3/uL (0.2-0.9); Monocytes % 6.9 %; Neutrophils # 3.02 10^3/uL (1.8-7.7); Nucleated Red Blood Cells % 0 %; Platelet Count 257 10^3/cmm (157-399); Red Blood Count 5.45 10^6/uL (3.85-5.65); Red Cell Distribution Width 13.8 % (12.1-15.1)
[2024-06-28 23:31] LABS: HCG, Serum Qual Negative (Negative)
[2024-06-28 23:36] LABS: Anion Gap 23.7 (5-19); Blood Urea Nitrogen 11 mg/dL (6-20); Calcium 8.5 mg/dL (8.5-10.5); Carbon Dioxide 23 mmol/L (22-29); Chloride 95 mmol/L (98-107); Creatinine Clr Calc Pharmacy 291.3027; Glomerular Filtration Rate 190.1 mL/min (90-130); Glucose 168 mg/dL (65-115); Osmolality Calculated 289 mOsm/kg (285-295); Potassium 3.7 mmol/L (3.5-5.1); Sodium 138 mmol/L (136-145)
--- NOTE | 2024-06-28 23:46 | ED_ITS ---
HPI - Female Genitourinary 2 General: Chief complaint: Vaginal Bleeding Stated complaint: vag bleeding Time Seen by Provider: 06/28/24 22:56 History of Present Illness: 29 year old female who says that she has been on her menstrual period for over a month. She has bled daily vaginally. No other discharge. Minimal pain. She does state that her back hurts from time to time period no fever. She does not believe she is . She has a nexplanon implant. No history of gynecological surgery. Related Data Home Medications Medication Instructions Recorded Confirmed acetaminophen 500 mg tablet 1,000 mg PO Q6H PRN Pain 11/02/22 04/16/24 etonogestrel 68 mg subdermal subdermal 01/03/24 04/16/24 implant (Nexplanon) Previous Rx's Medication Instructions Recorded CPAP 14 setting #1 ea 12/06/22 CPAP mask, tubing, supplies #1 ea 12/06/22 nifedipine 30 mg tablet,extended 30 mg PO DAILY #30 tabs 04/02/23 release 24 hr (Procardia XL) sucralfate 1 gram tablet (Carafate) 1 g PO BID #60 tabs 07/03/23 ondansetron 4 mg disintegrating 4 mg PO Q8H PRN nausea and 08/13/23 tablet vomiting #30 tabs pantoprazole 40 mg tablet,delayed 40 mg PO DAILY #60 tabs 08/13/23 release (Protonix) ketorolac 10 mg tablet 10 mg PO TID PRN pain #10 tabs 09/16/23 fluticasone propionate 50 1 spray intranasal DAILY PRN nasal 11/15/23 mcg/actuation nasal congestion #16 grams spray,suspension (Flonase Allergy Relief) hydrocodone 5 mg-acetaminophen 325 1 tab PO Q6H PRN pain #14 tabs 12/03/23 mg tablet albuterol sulfate 2.5 mg/3 mL 2.5 mg (3 mL) inhalation Q4H PRN 04/16/24 (0.083 %) solution for nebulization shortness of breath or wheezing #75 mL albuterol sulfate 90 mcg/actuation 2 puff inhalation Q6H PRN 04/16/24 aerosol inhaler shortness of breath or wheezing #6.7 grams azithromycin 500 mg tablet 500 mg PO DAILY 5 days #5 tabs 04/16/24 prednisone 20 mg tablet 20 mg PO BID 5 days #10 tabs 04/16/24 tranexamic acid 650 mg tablet 650 mg PO Q12H 6 days #12 tabs 06/28/24 Allergies Allergy/AdvReac Type Severity Reaction Status Date / Time tramadol Allergy feels like Verified 06/28/24 22:43 ants crawling PFSH ED 2 PFSH: Medical History Spinal headache Suicidal ideation Hx of transfusion of whole blood BMI 50.0-59.9, adult Hypertension Bipolar 1 disorder Laceration of left knee without complication No pertinent family history Surgical History Hx of tonsillectomy No pertinent past surgical history Family History Mother Anemia Psychiatric illness bipolar Other Cancer Chronic kidney disease (CKD) Clotting disorder Dementia Diabetes Hyperlipidemia Hypertension Stroke Denies family history of CAD (coronary artery disease) Suicide Anesthesia complication Bleeding disorder Family history of premature coronary artery disease Lung disease Social History Smoking and tobacco/nicotine status: current every day tobacco/nicotine user cigarettes Packs smoked per day: 0.33 Alcohol intake: never Substance/Drug Use: never Physical Exam 2 Const: COMMON NORMALS: no acute distress GENERAL APPEARANCE: cooperative; not ill appearing and not frail appearing HENMT: COMMON NORMALS: normocephalic, atraumatic and Normal external nose present HEAD & SCALP: normocephalic and atraumatic FACE & SINUS: normal facial exam and face symmetric NOSE: Normal external nose present Eye: COMMON NORMALS: Equal, round and reactive pupils present and EOMs intact bilaterally PUPIL: Yes Equal, round and reactive pupils present Neck/C-Spine: GENERAL: Yes trachea midline Chest: CHEST: Yes Symmetrical chest wall rise Resp: COMMON NORMALS: normal respiratory effort, No retractions, No use of accessory muscles and clear to auscultation bilaterally AUSCULTATION: clear to auscultation bilaterally Cardio: COMMON NORMALS: regular rate and regular rhythm RATE: regular rate RHYTHM: regular rhythm GI: COMMON NORMALS: Normal to inspection, nondistended, normoactive bowel sounds present Extremity: COMMON NORMALS: no pedal edema Neuro: MEI COMA SCALE: document GCS findings [place] coma scale eye opening: Spontaneous Mei coma scale verbal response: Orientated [place] coma scale motor response: Obey commands [place] coma scale total score: 15 S ENSORY EXAM: Yes extremities (intact) Psych: COMMON NORMALS: speech normal SPEECH: Yes normal speech Skin: COMMON NORMALS: no rashes or lesions noted GENERAL SKIN EXAM: no rashes or lesions noted Course 2 Vital Signs: Vital signs: Vital Signs Temperature 98.3 F 06/28/24 22:38 Pulse Rate 84 06/28/24 22:38 Respiratory Rate 19 H 06/28/24 22:38 Blood Pressure 148/80 06/28/24 22:38 Pulse Oximetry 98 06/28/24 22:38 Oxygen Delivery Me thod Room Air 06/28/24 22:38 MDM - Female Medical Decision Making 29 year old female with dysfunctional uterine bleeding. Her vital signs are stable period she's afebrile. Her hemoglobin is 13.3. She has a nexplanon implant. She'll be given a six day course of training Islamic acid to help stop the bleeding. She'll follow up with gynecology. Case management has been asked to help with this, and also set up the patient for an outpatient non emergent pelvic ultrasound. She knows she returned for worsening bleeding. Lab Data 06/28/24 23:10 06/28/24 23:10 Laboratory Results WBC 5.50 10^3/uL (3.29-11.43) 06/28/24 23:10 RBC 5.45 10^6/uL (3.85-5.65) 06/28/24 23:10 Hgb 13.30 g/dL (11.27-16.99) 06/28/24 23:10 Hct 42.4 % (36-47) 06/28/24 23:10 MCV 77.8 fl (85-98) L 06/28/24 23:10 MCH 24.4 pg (27-33) L 06/28/24 23:10 MCHC 31.4 g/dL (30-55) 06/28/24 23:10 RDW 13.8 % (12.1-15.1) 06/28/24 23:10 Plt Count 257 10^3/cmm (157-399) 06/28/24 23:10 MPV 9.7 fL (7.4-10.4) 06/28/24 23:10 Neut % (Auto) 55.0 % 06/28/24 23:10 Lymph % (Auto) 31.6 % 06/28/24 23:10 [place] % (Auto) 6.9 % 06/28/24 23:10 Eos % (Auto) 5.5 % 06/28/24 23:10 Baso % (Auto) 0.5 % 06/28/24 23:10 Neut # (Auto) 3.02 10^3/uL (1.8-7.7) 06/28/24 23:10 Lymph # (Auto) 1.7 10^3/uL (0.8-4.8) 06/28/24 23:10 [place] # (Auto) 0.4 10^3/uL (0.2-0.9) 06/28/24 23:10 Eos # (Auto) 0.3 10^3/uL (0.0-0.8) 06/28/24 23:10 Baso # (Auto) 0.0 10^3/uL (0.0-0.1) 06/28/24 23:10 Nucleated RBC % (auto) 0 % 06/28/24 23:10 Nucleated RBCs # 0.0 /100WBC 06/28/24 23:10 Sodium 138 mmol/L (136-145) 06/28/24 23:10 Potassium 3.7 mmol/L (3.5-5.1) 06/28/24 23:10 Chloride 95 mmol/L (98-107) L 06/28/24 23:10 Carbon Dioxide 23 mmol/L (22-29) 06/28/24 23:10 Anion Gap 23.7 (5-19) H 06/28/24 23:10 BUN 11 mg/dL (6-20) 06/28/24 23:10 Creatinine 0.4 mg/dL (0.5-0.9) L 06/28/24 23:10 GFR Calculation 190.1 mL/min (90-130) H 06/28/24 23:10 Glucose 168 mg/dL (65-115) H 06/28/24 23:10 Calculated Osmolality 289 mOsm/kg (285-295) 06/28/24 23:10 Calcium 8.5 mg/dL (8.5-10.5) 06/28/24 23:10 HCG, Qual Negative (Negative) 06/28/24 23:10 No radiology studies performed this visit Discharge Plan Discharge Patient Disposition: Home Clinical Impression: Dysfunctional uterine bleeding Condition: Stable Prescriptions: New tranexamic acid 650 mg tablet 650 mg PO Q12H 6 Days Qty: 12 0RF Discontinued levonorgest-eth.estradiol-iron 0.1 mg-0.02 mg (21)/iron (7) tablet 1 tab PO DAILY Qty: 84 0RF No Action sucralfate [Carafate] 1 gram tablet 1 g PO BID Qty: 60 0RF pantoprazole [Protonix] 40 mg tablet,delayed release (DR/EC) 40 mg PO DAILY Qty: 60 0RF ondansetron 4 mg tablet,disintegrating 4 mg PO Q8H PRN (Reason: nausea and vomiting) Qty: 30 0RF Nexplanon 68 mg implant subdermal prednisone 20 mg tablet 20 mg PO BID 5 Days Qty: 10 0RF albuterol sulfate 2.5 mg /3 mL (0.083 %) solution for nebulization 2.5 mg inhalation Q4H PRN (Reason: shortness of breath or wheezing) Qty: 75 0RF albuterol sulfate 90 mcg/actuation HFA aerosol inhaler 2 puff inhalation Q6H PRN (Reason: shortness of breath or wheezing) Qty: 6.7 0RF azithromycin 500 mg tablet 500 mg PO DAILY 5 Days Qty: 5 0RF fluticasone propionate [Flonase Allergy Relief] 50 mcg/actuation spray,suspension 1 spray intranasal DAILY PRN (Reason: nasal congestion) Qty: 16 0RF Rx Instructions: administer into each nostril (DME) CPAP 14 setting See Rx Instructions .ROUTE .MEDSUPPLY Qty: 1 0RF Rx Instructions: As directed (DME) CPAP mask, tubing, supplies See Rx Instructions .ROUTE .MEDSUPPLY Qty: 1 1RF Rx Instructions: As directed ketorolac 10 mg tablet 10 mg PO TID PRN (Reason: pain) Qty: 10 0RF hydrocodone-acetaminophen 5-325 mg tablet 1 tab PO Q6H PRN (Reason: pain) Qty: 14 0RF acetaminophen 500 mg Tablet 1,000 mg PO Q6H PRN (Reason: Pain) nifedipine [Procardia XL] 30 mg tablet extended release 24hr 30 mg PO DAILY Qty: 30 0RF Discharge Orders: Discharge ED (Routine); Ordered 06/28/24 Ordered By: Billy Iglesias Referrals: Kavon Gaines MD [Primary Care Provider] - 4-7 days Patient Instructions: Abnormal (Dysfunctional) Uterine Bleeding (ED), Opioid Safety, Pain Management Activity Restrictions/Additional Instructions: Medication as directed. Follow-up with your doctor next week. Case management should contact you regarding an outpatient ultrasound as well. You should hear from them next week. Return for problems. Coding Level of Care Code ED Business Banking Manager for Kimmie Hedrick
--- NOTE | 2024-06-30 16:26 | DCPLANNER ---
faxed outpatient us order to scheduling
== END 2024-06-29 00:07 | disposition home or self-care (01) ==
PROVIDERS: Emergency Provider Emergency Medicine; PCP Family Medicine
DX: N93.8 Other specified abnormal uterine and vaginal bleeding (principal); F17.210 Nicotine dependence, cigarettes, uncomplicated; I10 Essential (primary) hypertension
CPT/HCPCS: 36415; 80048; 84703; 85025; 99283

== ENCOUNTER → 2024-07-14 12:49 | Outpatient (BNVA) | payer MEDICAID, SELFPAY | PROVIDERS: PCP Family Medicine; Visit Provider Emergency Medicine | DX: R05.9 Cough, unspecified (principal) | CPT/HCPCS: 87071; 87400; 87426; 87880 ==

== ENCOUNTER 2024-09-07 00:23 | Emergency (ER) | payer MEDICAID, SELFPAY ==
[2024-09-07 00:58] VITALS: BP 173/66; PULSE 90; RESP 16; TEMP 36.7; O2SAT 98
--- NOTE | 2024-09-07 03:10 | ED_ITS ---
HPI - Extremity Problem General: Chief complaint: Extremity Injury, Lower Stated complaint: Left leg swollen aching cant bear weight Time Seen by Provider: 09/07/24 02:06 History of Present Illness: Patient presents with chief complaint of leg swelling and pain that started approximately two weeks ago. Patient reports inability to bear weight on the affected leg and describes the swelling extending down to the feet. The area was reportedly warm at one point. Patient has been self-treating with ibuprofen every 4-6 hours and elevation, with minimal relief. Patient has not sought prior medical attention for this condition. The onset of injury is unclear as patient is unsure about any precipitating events. Related Data Home Medications ?Medication ?Instructions ?Recorded ?Confirmed acetaminophen 500 mg tablet 1,000 mg PO Q6H PRN Pain 0 11/02/22 07/24/24 etonogestrel 68 mg subdermal subdermal 01/03/24 implant (Nexplanon) Previous Rx's ?Medication ?Instructions ?Recorded CPAP 14 setting #1 ea 12/06/22 CPAP mask, tubing, supplies #1 ea 12/06/22 nifedipine 30 mg tablet,extended 30 mg PO DAILY #30 ta bs 04/02/23 release 24 hr (Procardia XL) sucralfate 1 gram tablet (Carafate) 1 g PO BID #60 tab s 07/03/23 ondansetron 4 mg disintegrating 4 mg PO Q8H PRN nausea and 08/13/23 tablet vomiting #30 tabs pantoprazole 40 mg tablet,delayed 40 mg PO DAILY #60 t abs 08/13/23 release (Protonix) ketorolac 10 mg tablet 10 mg PO TID PRN pain #10 ta bs 09/16/23 fluticasone propionate 50 1 spray intranasal DAILY PRN nasal 11/15/23 mcg/actuation nasal congestion #16 grams spray,suspension (Flonase Allergy Relief) hydrocodone 5 mg-acetaminophen 325 1 tab PO Q6H PRN pa in #14 tabs 12/03/23 mg tablet albuterol sulfate 2.5 mg/3 mL 2.5 mg (3 mL) inhalation Q4H PRN 04/16/24 (0.083 %) solution for nebulization shortness of breat h or wheezing #75 mL albuterol sulfate 90 mcg/actuation 2 puff inhalation Q 6H PRN 04/16/24 aerosol inhaler shortness of breath or wheez ing #6.7 grams [id number]-[id number] 7.5 ml PO Q6H PRN c old symptoms 07/14/24 2 mg-30 mg-10 mg/5 mL oral syrup #160 mL (Bromfed DM) fluconazole 100 mg tablet 100 mg PO Q72H #3 tabs 07/24 (Diflucan) miconazole nitrate 2 % vaginal 1 appful vaginal DAILY 7 days #45 07/24/24 cream (Monistat 7) grams Allergies Allergy/AdvReac Type Severity Reaction Status Date / Time tramadol Allergy feels like Verified 09/07/24 01:02 ants crawling PFS ED PFSH: Medical History Spinal headache Suicidal ideation Hx of transfusion of whole blood BMI 50.0-59.9, adult Hypertension Bipolar 1 disorder Laceration of left knee without complication No pertinent family history Surgical History Hx of tonsillectomy No pertinent past surgical history Family History Mother Anemia Psychiatric illness bipolar Other Cancer Chronic kidney disease (CKD) Clotting disorder Dementia Diabetes Hyperlipidemia Hypertension Stroke Denies family history of CAD (coronary artery disease) Suicide Anesthesia complication Bleeding disorder Family history of premature coronary artery disease Lung disease Social History Smoking and tobacco/nicotine status: never used tobacco/nicotine Alcohol intake: never Substance/Drug Use: never Physical Exam Const: COMMON NORMALS: no acute distress, average body habitus, patient oriented x3, no limitations, healthy appearing, alert and well nourished HENMT: COMMON NORMALS: normocephalic HEAD & SCALP: normocephalic Chest: COMMONS NORMALS: normal inspection of the chest and normal palpation of entire chest wall Resp: COMMON NORMALS: normal respiratory effort, No retractions, No use of accessory muscles, clear to auscultation bilaterally and percussion normal AUSCULTATION: clear to auscultation bilaterally PERCUSSION: percussion normal Neuro: COMMON NORMALS: patient oriented x3 SENSORIUM/ORIENTATION: Yes alert Skin: COMMON NORMALS: no rashes or lesions noted, no wounds, turgor normal, no jaundice, no petechiae and no mottling GENERAL SKIN EXAM: no rashes or lesions noted and turgor normal Course Vital Signs: Vital signs: Vital Signs Temperature 98.1 F 09/07/24 00:58 Pulse Rate 90 09/07/24 00:58 Respiratory Rate 16 09/07/24 00:58 Blood Pressure 173/66 09/07/24 00:58 Pulse Oximetry 98 09/07/24 00:58 MDM - Extremity (Nontraumatic) Medical Decision Making I recommended patient get an x-ray she became angry and upset and very disgruntled and wanted to leave prior to complete evaluation.We had her sign out AGAINST MEDICAL ADVICE. No radiology studies performed this visit Discharge Plan Discharge Patient Disposition: Left Against Medical Advice Clinical Impression: Bipolar 1 disorder, Morbid obesity with BMI of 45.0-49.9, adult, Acute pain of left knee Condition: Stable Prescriptions: No Action sucralfate [Carafate] 1 gram tablet 1 g PO BID Qty: 60 0RF pantoprazole [Protonix] 40 mg tablet,delayed release (DR/EC) 40 mg PO DAILY Qty: 60 0RF ondansetron 4 mg tablet,disintegrating 4 mg PO Q8H PRN (Reason: nausea and vomiting) Qty: 30 0RF Nexplanon 68 mg implant subdermal albuterol sulfate 2.5 mg /3 mL (0.083 %) solution for nebulization 2.5 mg inhalation Q4H PRN (Reason: shortness of breath or wheezing) Qty: 75 0RF albuterol sulfate 90 mcg/actuation HFA aerosol inhaler 2 puff inhalation Q6H PRN (Reason: shortness of breath or wheezing) Qty: 6.7 0RF [id number]-xaprlygav-JB [Bromfed DM] 2-30-10 mg/5 mL syrup 7.5 ml PO Q6H PRN (Reason: cold symptoms) Qty: 160 0RF fluticasone propionate [Flonase Allergy Relief] 50 mcg/actuation spray,suspension 1 spray intranasal DAILY PRN (Reason: nasal congestion) Qty: 16 0RF Rx Instructions: administer into each nostril fluconazole [Diflucan] 100 mg tablet 100 mg PO Q72H Qty: 3 0RF Rx Instructions: Take one tab, in 72hours take additional tab. Repeat if needed in 72 hours. miconazole nitrate [Monistat 7] 2 % cream 1 appful vaginal DAILY 7 Days Qty: 45 0RF (DME) CPAP 14 setting See Rx Instructions .ROUTE .MEDSUPPLY Qty: 1 0RF Rx Instructions: As directed (DME) CPAP mask, tubing, supplies See Rx Instructions .ROUTE .MEDSUPPLY Qty: 1 1RF Rx Instructions: As directed ketorolac 10 mg tablet 10 mg PO TID PRN (Reason: pain) Qty: 10 0RF hydrocodone-acetaminophen 5-325 mg tablet 1 tab PO Q6H PRN (Reason: pain) Qty: 14 0RF acetaminophen 500 mg Tablet 1,000 mg PO Q6H PRN (Reason: Pain) nifedipine [Procardia XL] 30 mg tablet extended release 24hr 30 mg PO DAILY Qty: 30 0RF Referrals: Kavon Gaines MD [Primary Care Provider] - Print Language: Urdu Coding Level of Care Code ED Captain Of Guards for Kimmie Hedrick
--- NOTE | 2024-09-07 03:12 | PC.NURSE ---
PT WAS VERBALLY AGGRESSIVE WITH NURSE. PT SNATCHED THE PULSE OX OUT OF NURSES HANDS. PT ASKED FOR BLANKET WHEN NURSE RETRIEVED IT AND TOOK IT TO PT SHE YELLED AT NURSE, GO GET THE CONSENT. I AM LEAVING BECAUSE I DONT LIKE YOUR ATTITUDE. PT WAS THEN TAKEN AN AMA FORM AND WALKED OUT OF THE ER.
== END 2024-09-07 02:12 | disposition left against medical advice (07) ==
PROVIDERS: Emergency Provider Family Medicine; PCP Family Medicine
DX: M25.562 Pain in left knee (principal); F31.9 Bipolar disorder, unspecified; E66.01 Morbid (severe) obesity due to excess calories; Z68.42 Body mass index [BMI] 45.0-49.9, adult; I10 Essential (primary) hypertension

== ENCOUNTER 2024-10-27 22:54 | Emergency (ER) | payer OTHER, MEDICAID, SELFPAY ==
[2024-10-27 23:15] VITALS: BP 137/82; PULSE 86; RESP 16; TEMP 36.7; O2SAT 99; BMI 44.1
--- NOTE | 2024-10-27 23:46 | XRR_ITS ---
PROCEDURE INFORMATION: Exam: XR Left Knee Exam date and time: 10/28/2024 12:09 AM Age: 29 years old Clinical indication: C/O worsening left knee pain over the last week and earlier last night felt a pop in knee. TECHNIQUE: Imaging protocol: Radiologic exam of the left knee. Views: 3 views. COMPARISON: CR XR knee LT 3V* [id number] 12/27/2021 2:34 AM FINDINGS: Bones/joints: Normal. Soft tissues: Normal. XR/XR knee LT 3V* [id number] IMPRESSION: No acute findings.
[2024-10-28 00:05] VITALS: BP 141/69; PULSE 83; RESP 16; O2SAT 100
--- NOTE | 2024-10-28 00:25 | ED_ITS ---
HPI - Extremity Problem General: Chief complaint: Extremity Injury, Lower Stated complaint: Left Leg Pain Time Seen by Provider: 10/27/24 23:47 Source: patient History of Present Illness: Patient is a 29-year-old female who presents to the ED with left knee pain. 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 Patient reports hearing a 'crack' at the time of injury. She has been ambulatory since the incident but notes significant pain with certain movements, particularly when sitting down and getting up. The pain is localized to the medial aspect of the knee with minimal lateral knee pain. Patient has been taking ibuprofen 600-800mg for pain management. She denies any recent trauma but has a remote history of a nail puncture wound to the same knee at age 14 which required stitches. MD Complaint: extremity pain Related Data Home Medications ?Medication ?Instructions ?Recorded ?Confirmed acetaminophen 500 mg tablet 1,000 mg PO Q6H PRN Pain 0 11/02/22 07/24/24 etonogestrel 68 mg subdermal subdermal 01/03/24 implant (Nexplanon) Previous Rx's ?Medication ?Instructions ?Recorded CPAP 14 setting #1 ea 12/06/22 CPAP mask, tubing, supplies #1 ea 12/06/22 nifedipine 30 mg tablet,extended 30 mg PO DAILY #30 ta bs 04/02/23 release 24 hr (Procardia XL) sucralfate 1 gram tablet (Carafate) 1 g PO BID #60 tab s 07/03/23 ondansetron 4 mg disintegrating 4 mg PO Q8H PRN nausea and 08/13/23 tablet vomiting #30 tabs pantoprazole 40 mg tablet,delayed 40 mg PO DAILY #60 t abs 08/13/23 release (Protonix) ketorolac 10 mg tablet 10 mg PO TID PRN pain #10 ta bs 09/16/23 fluticasone propionate 50 1 spray intranasal DAILY PRN nasal 11/15/23 mcg/actuation nasal congestion #16 grams spray,suspension (Flonase Allergy Relief) hydrocodone 5 mg-acetaminophen 325 1 tab PO Q6H PRN pa in #14 tabs 12/03/23 mg tablet albuterol sulfate 2.5 mg/3 mL 2.5 mg (3 mL) inhalation Q4H PRN 04/16/24 (0.083 %) solution for nebulization shortness of breat h or wheezing #75 mL albuterol sulfate 90 mcg/actuation 2 puff inhalation Q 6H PRN 04/16/24 aerosol inhaler shortness of breath or wheez ing #6.7 grams pxifldjivegzqeu-xrcttubkyoqmpgo-SF 7.5 ml PO Q6H PRN c old symptoms 07/14/24 2 mg-30 mg-10 mg/5 mL oral syrup #160 mL (Bromfed DM) fluconazole 100 mg tablet 100 mg PO Q72H #3 tabs 07/24 (Diflucan) miconazole nitrate 2 % vaginal 1 appful vaginal DAILY 7 days #45 07/24/24 cream (Monistat 7) grams Allergies Allergy/AdvReac Type Severity Reaction Status Date / Time tramadol Allergy feels like Verified 10/27/24 23:21 ants crawling PFS ED PFSH: Medical History Spinal headache Suicidal ideation Hx of transfusion of whole blood BMI 50.0-59.9, adult Hypertension Bipolar 1 disorder Laceration of left knee without complication No pertinent family history Surgical History Hx of tonsillectomy No pertinent past surgical history Family History Mother Anemia Psychiatric illness bipolar Other Cancer Chronic kidney disease (CKD) Clotting disorder Dementia Diabetes Hyperlipidemia Hypertension Stroke Denies family history of CAD (coronary artery disease) Suicide Anesthesia complication Bleeding disorder Family history of premature coronary artery disease Lung disease Social History Smoking and tobacco/nicotine status: never used tobacco/nicotine Alcohol intake: never Substance/Drug Use: never Physical Exam Const: COMMON NORMALS: no acute distress, average body habitus, alert and well nourished GENERAL APPEARANCE: cooperative ORIENTATION/CONSCIOUSNESS: Yes awake HENMT: COMMON NORMALS: normocephalic and atraumatic HEAD & SCALP: normocephalic and atraumatic Eye: COMMON NORMALS: conjunctivae normal CONJUNCTIVA: Yes conjunctivae normal Neck/C-Spine: GENERAL: Yes normal visual inspection Resp: COMMON NORMALS: normal respiratory effort, No retractions and No use of accessory muscles Cardio: COMMON NORMALS: regular rhythm and Peripheral pulses 2+ throughout RHYTHM: regular rhythm PERIPHERAL PULSES: Peripheral pulses 2+ throughout GI: COMMON NORMALS: Soft to palpation and non-tender PALPATION: Yes Soft to palpation Extremity: COMMON NORMALS: full ROM and no pedal edema Neuro: COMMON NORMALS: no focal motor deficits SENSORIUM/ORIENTATION: Yes alert Skin: COMMON NORMALS: no rashes or lesions noted GENERAL SKIN EXAM: no rashes or lesions noted Course Vital Signs: Vital signs: Vital Signs Temperature 98.0 F 10/27/24 23:15 Pulse Rate 83 10/28/24 00:05 Respiratory Rate 16 10/28/24 00:05 Blood Pressure 141/69 10/28/24 00:05 Pulse Oximetry 100 10/28/24 00:05 Oxygen Delivery Me thod Room Air 10/27/24 23:15 MDM - Extremity (Nontraumatic) Medical Decision Making Review of Systems: Limited review of systems due to focused evaluation. Musculoskeletal: Left knee pain with movement, worse with flexion. No radiation of pain. Constitutional: No fever or chills noted. 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 Medical Decision Making: Summary Statement: 29-year-old female with acute left knee pain following twisting injury one week ago, presenting with medial knee pain concerning for meniscal injury. Problem List: 1. Left knee pain, 2. Morbid obesity Differential Diagnosis: 1. Meniscal tear, 2. MCL sprain, 3. ACL injury, 4. Patellofemoral syndrome, 5. Osteoarthritis ED Course: Patient evaluated for acute knee pain. Physical exam performed showing medial knee tenderness without effusion. X-ray obtained to rule out fracture. Conservative management plan initiated. Assessment and Plan: 1. Left Knee Pain: - Likely meniscal injury vs ligamentous strain based on mechanism and exam - Conservative management with: * Ice therapy (15 minutes on/off) * NSAIDs (Ibuprofen 600mg TID) * Knee brace recommended for support * Activity modification and rest - Follow up with PCP within 1 week - Consider outpatient MRI if symptoms persist - Return to ED for worsening symptoms 2. Morbid Obesity: - Recommend follow-up with PCP for weight management strategies Lab Data Radiology Impressions Knee X-Ray 10/27/24 23:46 IMPRESSION: No acute findings. All radiology interpretation(s) finalized by discharge Discharge Plan Discharge Patient Disposition: Home Clinical Impression: Left knee sprain Condition: Stable Prescriptions: No Action sucralfate [Carafate] 1 gram tablet 1 g PO BID Qty: 60 0RF pantoprazole [Protonix] 40 mg tablet,delayed release (DR/EC) 40 mg PO DAILY Qty: 60 0RF ondansetron 4 mg tablet,disintegrating 4 mg PO Q8H PRN (Reason: nausea and vomiting) Qty: 30 0RF Nexplanon 68 mg implant subdermal albuterol sulfate 2.5 mg /3 mL (0.083 %) solution for nebulization 2.5 mg inhalation Q4H PRN (Reason: shortness of breath or wheezing) Qty: 75 0RF albuterol sulfate 90 mcg/actuation HFA aerosol inhaler 2 puff inhalation Q6H PRN (Reason: shortness of breath or wheezing) Qty: 6.7 0RF ljozpvyzgelaixg-rqucxshob-UC [Bromfed DM] 2-30-10 mg/5 mL syrup 7.5 ml PO Q6H PRN (Reason: cold symptoms) Qty: 160 0RF fluticasone propionate [Flonase Allergy Relief] 50 mcg/actuation spray,suspension 1 spray intranasal DAILY PRN (Reason: nasal congestion) Qty: 16 0RF Rx Instructions: administer into each nostril fluconazole [Diflucan] 100 mg tablet 100 mg PO Q72H Qty: 3 0RF Rx Instructions: Take one tab, in 72hours take additional tab. Repeat if needed in 72 hours. miconazole nitrate [Monistat 7] 2 % cream 1 appful vaginal DAILY 7 Days Qty: 45 0RF (DME) CPAP 14 setting See Rx Instructions .ROUTE .MEDSUPPLY Qty: 1 0RF Rx Instructions: As directed (DME) CPAP mask, tubing, supplies See Rx Instructions .ROUTE .MEDSUPPLY Qty: 1 1RF Rx Instructions: As directed ketorolac 10 mg tablet 10 mg PO TID PRN (Reason: pain) Qty: 10 0RF hydrocodone-acetaminophen 5-325 mg tablet 1 tab PO Q6H PRN (Reason: pain) Qty: 14 0RF acetaminophen 500 mg Tablet 1,000 mg PO Q6H PRN (Reason: Pain) nifedipine [Procardia XL] 30 mg tablet extended release 24hr 30 mg PO DAILY Qty: 30 0RF Discharge Orders: Discharge ED (Routine); Ordered 10/28/24 Ordered By: Rachid Mendoza Referrals: Kavon Gaines MD [Primary Care Provider, [facility]] Discharge Activity: Increase activity as tolerated Patient Instructions: Knee Sprain (ED), Opioid Safety, Pain Management Activity Restrictions/Additional Instructions: Apply cool compresses to the affected knee to help with pain as discussed. Wear a knee brace as discussed to help with pain. Follow-up with your PCP to discuss referral for physical therapy and MRI of the knee. Return for any concerns. 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
[2024-10-28 00:40] VITALS: BP 142/75; PULSE 89; O2SAT 95
== END 2024-10-28 00:42 | disposition home or self-care (01) ==
PROVIDERS: Emergency Provider Student in an Organized Health Care Education/Training Program; PCP Family Medicine
DX: S83.92XA Sprain of unspecified site of left knee, initial encounter (principal); I10 Essential (primary) hypertension; X58.XXXA Exposure to other specified factors, initial encounter
CPT/HCPCS: 73562; 99283

== ENCOUNTER → 2024-11-26 11:42 | Outpatient (BNVA) | payer OTHER, MEDICAID, SELFPAY | PROVIDERS: PCP Family Medicine; Visit Provider Family Medicine | DX: E11.9 Type 2 diabetes mellitus without complications (principal) | CPT/HCPCS: 80053; 80061; 83036; 85025 ==

== ENCOUNTER → 2025-02-20 12:57 | Outpatient (BNVA) | payer OTHER, SELFPAY | PROVIDERS: PCP Family Medicine; Visit Provider Emergency Medicine | DX: R10.2 Pelvic and perineal pain (principal); N92.1 Excessive and frequent menstruation with irregular cycle; Z97.5 Presence of (intrauterine) contraceptive device | CPT/HCPCS: 81000; 85025; 87086 ==

== ENCOUNTER → 2025-03-06 13:51 | Outpatient (BNVA) | payer OTHER, SELFPAY | PROVIDERS: PCP Family Medicine; Visit Provider Family Medicine | DX: D64.9 Anemia, unspecified (principal) | CPT/HCPCS: 81000; 82728; 83550; 85025 ==

== ENCOUNTER → 2025-04-30 09:53 | Outpatient (BNVA) | payer OTHER, SELFPAY | PROVIDERS: PCP Family Medicine; Visit Provider Obstetrics & Gynecology | DX: R10.20 Pelvic and perineal pain unspecified side (principal) | CPT/HCPCS: 84315; 87086; 87624 ==